=== PATIENT | male | born 1935 | race Caucasian/White ===

== ENCOUNTER → 2017-03-22 | Outpatient (CLI) | payer MEDICARE, OTHER ==
[2017-03-22 08:31] LABS: HEMATOCRIT 43.2 % (37.9-51.0); HGB HCT DIFFERENCE -1.2; MEAN CORPUSCULAR HEMOGLOBIN 30.2 pg (27.0-33.4); MEAN CORPUSCULAR HGB CONC 32.3 g/dL (32.0-36.0); MEAN CORPUSCULAR VOLUME 94 fl (80-97); RED BLOOD COUNT 4.62 10^6/uL (4.35-5.55); RED CELL DISTRIBUTION WIDTH 14.9 % (11.5-14.0); WHITE BLOOD COUNT 8.1 10^3/uL (4.0-10.5)
[2017-03-22 08:41] LABS: APPEARANCE,URINE CLEAR; BILIRUBIN,URINE NEGATIVE (NEGATIVE); GLUCOSE, URINE NEGATIVE (NEGATIVE); KETONES,URINE NEGATIVE (NEGATIVE); LEUKOCYTE ESTERASE,URINE NEGATIVE (NEGATIVE); NITRITE,URINE NEGATIVE (NEGATIVE); PROTEIN,URINE NEGATIVE (NEGATIVE); URINE SPECIFIC GRAVITY 1.019; UROBILINOGEN,URINE NEGATIVE mg/dL (<2.0)
[2017-03-22 08:59] LABS: ANION GAP 11 (5-19); BLOOD UREA NITROGEN 24 mg/dL (7-20); CALCIUM 9.1 mg/dL (8.4-10.2); CARBON DIOXIDE 32 mmol/L (22-30); CHLORIDE 101 mmol/L (98-107); CREATININE RESULT 1.29 mg/dL (0.52-1.25); GLUCOSE 103 mg/dL (75-110); POTASSIUM 5.5 mmol/L (3.6-5.0)
[2017-03-22 09:15] LABS: URINE CREATININE 163.8 mg/dL (22-328); URINE PROTEIN 8.7 mg/dL (<12)
== END ==
LOC: OD 07:29
PROVIDERS: ATTEND Internal Medicine Nephrology
DX: I12.9 Hypertensive chronic kidney disease with stage 1 through stage 4 chronic kidney disease, or unspecified chronic kidney disease (principal); N18.4 Chronic kidney disease, stage 4 (severe); E11.9 Type 2 diabetes mellitus without complications; E87.5 Hyperkalemia; E66.9 Obesity, unspecified
CPT/HCPCS: 36415; 80048; 81001; 82570; 84156; 85027

== ENCOUNTER → 2017-03-24 | Outpatient (CLI) | payer MEDICARE, OTHER | LOC: OD 07:03 | PROVIDERS: ATTEND Physician Assistant Medical | DX: E87.5 Hyperkalemia (principal) | CPT/HCPCS: 36415; 84132 ==

== ENCOUNTER → 2017-04-29 | Outpatient (CLI) | payer MEDICARE, OTHER | LOC: OD 07:05 | PROVIDERS: ATTEND Internal Medicine Nephrology | DX: E87.5 Hyperkalemia (principal) | CPT/HCPCS: 36415; 84132 ==

== ENCOUNTER → 2017-09-20 | Outpatient (CLI) | payer MEDICARE, OTHER ==
[2017-09-20 08:29] LABS: HEMOGLOBIN 14.1 g/dL (13.5-17.0); HGB HCT DIFFERENCE -0.7; MEAN CORPUSCULAR HEMOGLOBIN 30.5 pg (27.0-33.4); MEAN CORPUSCULAR HGB CONC 32.8 g/dL (32.0-36.0); MEAN CORPUSCULAR VOLUME 93 fl (80-97); RED BLOOD COUNT 4.63 10^6/uL (4.35-5.55); RED CELL DISTRIBUTION WIDTH 15.8 % (11.5-14.0); WHITE BLOOD COUNT 7.4 10^3/uL (4.0-10.5)
[2017-09-20 08:44] LABS: APPEARANCE,URINE CLEAR; BILIRUBIN,URINE NEGATIVE (NEGATIVE); GLUCOSE, URINE NEGATIVE (NEGATIVE); KETONES,URINE NEGATIVE (NEGATIVE); LEUKOCYTE ESTERASE,URINE NEGATIVE (NEGATIVE); NITRITE,URINE NEGATIVE (NEGATIVE); PROTEIN,URINE NEGATIVE (NEGATIVE); URINE SPECIFIC GRAVITY 1.023; UROBILINOGEN,URINE NEGATIVE mg/dL (<2.0)
[2017-09-20 08:59] LABS: ANION GAP 10 (5-19); BLOOD UREA NITROGEN 27 mg/dL (7-20); CALCIUM 9.5 mg/dL (8.4-10.2); CARBON DIOXIDE 31 mmol/L (22-30); CHLORIDE 105 mmol/L (98-107); CREATININE RESULT 1.43 mg/dL (0.52-1.25); GLUCOSE 98 mg/dL (75-110); POTASSIUM 4.7 mmol/L (3.6-5.0); SODIUM 146.1 mmol/L (137-145)
== END ==
LOC: OD 07:49
PROVIDERS: ATTEND Internal Medicine Nephrology
DX: N18.3 Chronic kidney disease, stage 3 (moderate) (principal); E11.9 Type 2 diabetes mellitus without complications; E87.5 Hyperkalemia; I12.9 Hypertensive chronic kidney disease with stage 1 through stage 4 chronic kidney disease, or unspecified chronic kidney disease
CPT/HCPCS: 36415; 80048; 81001; 85027

== ENCOUNTER → 2018-03-28 | Outpatient (CLI) | payer MEDICARE, OTHER ==
[2018-03-28 07:50] LABS: HEMATOCRIT 44.5 % (37.9-51.0); HEMOGLOBIN 14.7 g/dL (13.5-17.0); MEAN CORPUSCULAR HEMOGLOBIN 30.6 pg (27.0-33.4); MEAN CORPUSCULAR HGB CONC 32.9 g/dL (32.0-36.0); MEAN CORPUSCULAR VOLUME 93 fl (80-97); PLATELET COUNT 188 10^3/uL (150-450); RED BLOOD COUNT 4.78 10^6/uL (4.35-5.55); RED CELL DISTRIBUTION WIDTH 14.8 % (11.5-14.0); WHITE BLOOD COUNT 5.7 10^3/uL (4.0-10.5)
[2018-03-28 08:03] LABS: APPEARANCE,URINE CLEAR; BILIRUBIN,URINE NEGATIVE (NEGATIVE); COLOR,URINE YELLOW; GLUCOSE, URINE NEGATIVE (NEGATIVE); KETONES,URINE NEGATIVE (NEGATIVE); LEUKOCYTE ESTERASE,URINE NEGATIVE (NEGATIVE); NITRITE,URINE NEGATIVE (NEGATIVE); PROTEIN,URINE 30 mg/dL (NEGATIVE); URINE SPECIFIC GRAVITY 1.023; UROBILINOGEN,URINE NEGATIVE mg/dL (<2.0)
[2018-03-28 08:06] LABS: ANION GAP 9 (5-19); BLOOD UREA NITROGEN 23 mg/dL (7-20); CALCIUM 8.9 mg/dL (8.4-10.2); CARBON DIOXIDE 29 mmol/L (22-30); CHLORIDE 107 mmol/L (98-107); GLUCOSE 98 mg/dL (75-110); SODIUM 144.6 mmol/L (137-145)
== END ==
LOC: OD 07:11
PROVIDERS: ATTEND Internal Medicine Nephrology
DX: I12.9 Hypertensive chronic kidney disease with stage 1 through stage 4 chronic kidney disease, or unspecified chronic kidney disease (principal); N18.3 Chronic kidney disease, stage 3 (moderate); E11.9 Type 2 diabetes mellitus without complications; D64.9 Anemia, unspecified
CPT/HCPCS: 36415; 80048; 81001; 85027

== ENCOUNTER → 2018-10-14 | Outpatient (CLI) | payer MEDICARE, OTHER ==
[2018-10-14 08:04] LABS: APPEARANCE,URINE SLIGHTLY-CLOUDY; BILIRUBIN,URINE NEGATIVE (NEGATIVE); COLOR,URINE YELLOW; GLUCOSE, URINE NEGATIVE (NEGATIVE); KETONES,URINE NEGATIVE (NEGATIVE); LEUKOCYTE ESTERASE,URINE NEGATIVE (NEGATIVE); NITRITE,URINE NEGATIVE (NEGATIVE); PROTEIN,URINE 30 mg/dL (NEGATIVE); UROBILINOGEN,URINE NEGATIVE mg/dL (<2.0)
[2018-10-14 08:05] LABS: HEMATOCRIT 46.7 % (37.9-51.0); HEMOGLOBIN 15.8 g/dL (13.5-17.0); MEAN CORPUSCULAR HEMOGLOBIN 31.6 pg (27.0-33.4); MEAN CORPUSCULAR HGB CONC 33.9 g/dL (32.0-36.0); MEAN CORPUSCULAR VOLUME 93 fl (80-97); PLATELET COUNT 219 10^3/uL (150-450); RED BLOOD COUNT 5.01 10^6/uL (4.35-5.55); WHITE BLOOD COUNT 6.9 10^3/uL (4.0-10.5)
[2018-10-14 08:31] LABS: ANION GAP 8 (5-19); BLOOD UREA NITROGEN 25 mg/dL (7-20); CALCIUM 9.2 mg/dL (8.4-10.2); CARBON DIOXIDE 29 mmol/L (22-30); CHLORIDE 103 mmol/L (98-107); GLUCOSE 106 mg/dL (75-110); SODIUM 140.1 mmol/L (137-145)
== END ==
LOC: OD 07:06
PROVIDERS: ATTEND Physician Assistant Medical
DX: I12.9 Hypertensive chronic kidney disease with stage 1 through stage 4 chronic kidney disease, or unspecified chronic kidney disease (principal); N18.3 Chronic kidney disease, stage 3 (moderate); E87.5 Hyperkalemia; R60.9 Edema, unspecified
CPT/HCPCS: 36415; 80048; 81001; 85027

== ENCOUNTER → 2019-04-12 | Outpatient (CLI) | payer MEDICARE, OTHER ==
[2019-04-12 08:13] LABS: HEMATOCRIT 48.1 % (37.9-51.0); HEMOGLOBIN 15.8 g/dL (13.5-17.0); MEAN CORPUSCULAR HEMOGLOBIN 31.3 pg (27.0-33.4); MEAN CORPUSCULAR HGB CONC 32.9 g/dL (32.0-36.0); MEAN CORPUSCULAR VOLUME 95 fl (80-97); PLATELET COUNT 217 10^3/uL (150-450); RED BLOOD COUNT 5.06 10^6/uL (4.35-5.55); RED CELL DISTRIBUTION WIDTH 15.1 % (11.5-14.0); WHITE BLOOD COUNT 6.6 10^3/uL (4.0-10.5)
[2019-04-12 08:28] LABS: APPEARANCE,URINE CLEAR; BILIRUBIN,URINE NEGATIVE (NEGATIVE); COLOR,URINE YELLOW; GLUCOSE, URINE NEGATIVE (NEGATIVE); KETONES,URINE NEGATIVE (NEGATIVE); LEUKOCYTE ESTERASE,URINE NEGATIVE (NEGATIVE); NITRITE,URINE NEGATIVE (NEGATIVE); PROTEIN,URINE 100 mg/dL (NEGATIVE); URINE SPECIFIC GRAVITY 1.018; UROBILINOGEN,URINE NEGATIVE mg/dL (<2.0)
[2019-04-12 08:34] LABS: BLOOD UREA NITROGEN 23 mg/dL (7-20); CALCIUM 9.2 mg/dL (8.4-10.2); CARBON DIOXIDE 36 mmol/L (22-30); CHLORIDE 99 mmol/L (98-107); GLUCOSE 100 mg/dL (75-110); POTASSIUM 5.7 mmol/L (3.6-5.0)
[2019-04-12 08:40] LABS: ANION GAP 5 (5-19); SODIUM 139.6 mmol/L (137-145)
== END ==
LOC: OD 07:18
PROVIDERS: ATTEND Physician Assistant Medical
DX: E11.22 Type 2 diabetes mellitus with diabetic chronic kidney disease (principal); N18.3 Chronic kidney disease, stage 3 (moderate); E87.5 Hyperkalemia
CPT/HCPCS: 36415; 80048; 81001; 85027

== ENCOUNTER → 2019-04-14 | Outpatient (CLI) | payer MEDICARE, OTHER | LOC: OD 07:11 | PROVIDERS: ATTEND Physician Assistant Medical | DX: E87.5 Hyperkalemia (principal) | CPT/HCPCS: 36415; 84132 ==

== ENCOUNTER 2019-11-28 08:08 | Day surgery (SDC) | payer MEDICARE, OTHER ==
[~2019-11-28 08:08] MED LIST: CHONDR SU A NA/HYALUR INTRAOC KIT (SURGICARE) ONE; EPINEPHRINE INJ/PF 1 MG/1 ML AMPULE ONE; KETOROLAC TROMETHAMINE 0.45% 4 DROP/0.4 ML DROPERETTE OD PRN; LIDOCAINE 1%/PHENYLEPHRINE 1.5% 1 ML VIAL ONE
[2019-11-28] MEDS ORDERED: MIDAZOLAM 2 MG/2 ML INJ ONE (08:23)
[2019-11-28] MEDS: TETRACAINE HCL 0.5% OPH SOLN 4 ML OD PRN ×3 (09:00→09:23)
[2019-11-28] MEDS: CYCLOPENTOLATE 0.2%/PHENYLEPHRINE 1% OPH SOLN 2 ML OD PRN ×3 (09:01→09:19)
[2019-11-28] MEDS: TROPICAMIDE 1% OPH SOLN 15 ML OD PRN ×3 (09:01→09:19)
[2019-11-28] MEDS: BESIFLOXACIN HCL 0.6% OPH SUSP 5 ML BOTTLE OD PRN ×4 (09:01→09:45)
[2019-11-28] MEDS: DORZOLAMIDE HCL 2%/TIMOLOL MALEAT 0.5% OPH SOLN 10 ML OD PRN ×2 (09:45)
--- NOTE | 2019-11-28 12:53 | Operative Report ---
Operative Report-[facility] Operative Report: DATE OF SURGERY: 11/28/2019 PREOPERATIVE DIAGNOSIS: Cataract, right eye POSTOPERATIVE DIAGNOSIS: Cataract, right eye OPERATION: Cataract extraction with insertion of an IOL of the right eye. Intraocular Lens Model: [24.0 sn60wf] Patient underwent surgery for difficulty seeing road signs SURGEON: Cameron Rosenberg MD ANESTHESIA: Topical PROCEDURE: After obtaining appropriate consent, the patient's right eye was prepped and draped in a sterile fashion as well as the surgeon in the sterile manner and cataract surgery was started. First a paracentesis blade was used to make a side-port incision. Viscoelastic was used to inflate the anterior chamber. Next a 2.4 mm incision was made with a 2.4 mm blade, clear corneal temporarily. A continuous capsulorrhexis was made using a cystotome and Utrata forceps. Following this hydrodissection was carried out to make the radha fully loose and mobile and it was rotated. Following this, a divide and conquer technique was used to phacoemulsify the radha. The remaining cortex was removed with an irrigation/aspiration. Provisc was instilled into the capsular bag to inflate the bag. The intraocular lens was placed. The remaining viscoelastic material was removed with irrigation/aspiration. Following this, the incision was found to be watertight. Besivance and Cosopt was instilled into the eye and a protective shield was placed over the eye. The patient was reurned to the postoperative recovery in a stable condition.
== END 2019-11-28 10:40 | disposition home or self-care (01) ==
LOC: SC 08:08
PROVIDERS: ATTEND Internal Medicine
DX: H25.13 Age-related nuclear cataract, bilateral (principal); H40.013 Open angle with borderline findings, low risk, bilateral; H04.123 Dry eye syndrome of bilateral lacrimal glands; H52.4 Presbyopia; E11.9 Type 2 diabetes mellitus without complications; E78.00 Pure hypercholesterolemia, unspecified
CPT/HCPCS: 66984; 00142; V2632; J2250; J3490 ×2; A9270; J0171; J2370; 142

== ENCOUNTER 2019-12-19 07:47 | Day surgery (SDC) | payer MEDICARE, OTHER ==
[~2019-12-19 07:47] MED LIST changes: -CHONDR SU A NA/HYALUR INTRAOC KIT (SURGICARE) ONE; +DORZOLAMIDE HCL 2%/TIMOLOL MALEAT 0.5% OPH SOLN 10 ML OS PRN; -KETOROLAC TROMETHAMINE 0.45% 4 DROP/0.4 ML DROPERETTE OD PRN; +KETOROLAC TROMETHAMINE 0.45% 4 DROP/0.4 ML DROPERETTE OS PRN
[2019-12-19] MEDS ORDERED: CHONDR SU A NA/HYALUR INTRAOC KIT (SURGICARE) ONE (07:48)
[2019-12-19] MEDS ORDERED: MIDAZOLAM 2 MG/2 ML INJ ONE (08:01)
[2019-12-19] MEDS ORDERED: ONDANSETRON HCL INJ/PF 4 MG/2 ML SDV ONE (08:01)
[2019-12-19] MEDS ORDERED: FENTANYL CITRATE INJ/PF 100 MCG/2 ML AMPUL ONE (08:02)
[2019-12-19] MEDS: CYCLOPENTOLATE 0.2%/PHENYLEPHRINE 1% OPH SOLN 2 ML OS PRN ×3 (08:31→08:51)
[2019-12-19] MEDS: BESIFLOXACIN HCL 0.6% OPH SUSP 5 ML BOTTLE OS PRN ×3 (08:31→09:24)
[2019-12-19] MEDS: TROPICAMIDE 1% OPH SOLN 15 ML OS PRN ×3 (08:31→08:51)
[2019-12-19] MEDS: TETRACAINE HCL 0.5% OPH SOLN 4 ML OS PRN ×3 (08:32→09:03)
--- NOTE | 2019-12-19 13:54 | Operative Report ---
Operative Report-[facility] Operative Report: DATE OF SURGERY: 12/19/2019 PREOPERATIVE DIAGNOSIS: Cataracts, left eye POSTOPERATIVE DIAGNOSIS: Cataract, left eye OPERATION: Cataract extraction with insertion of an IOL of the left eye. Intraocular Lens Model: [22.0 sn60wf] Patient underwent surgery for difficulty seeing small print SURGEON: Cameron Rosenberg MD ANESTHESIA: Topical PROCEDURE: After obtaining appropriate consent, the patient's left eye was prepped and draped in a sterile fashion as well as the surgeon in the sterile manner and cataract surgery was started. First a paracentesis blade was used to make a side-port incision. Viscoelastic was used to inflate the anterior chamber. Next a 2.4 mm incision was made with a 2.4 mm blade, clear corneal temporarily. A continuous capsulorrhexis was made using a cystotome and Utrata forceps. Following this hydrodissection was carried out to make the lens fully loose and mobile and it was rotated 90 degrees. Following this, a divide and conquer technique was used to phacoemulsify the lens. The remaining cortex was removed with an irrigation/aspiration. Provisc was instilled into the capsular bag to inflate the bag.The intraocular lens was placed. The remaining viscoelastic material was removed with irrigation/aspiration. Following this, the incision was found to be watertight. Besivance and Cosopt was instilled into the eye and a protective shield was placed over the eye. The patient was returned to the postoperative recovery in a stable condition.
== END 2019-12-19 10:00 | disposition home or self-care (01) ==
LOC: SC 07:47
PROVIDERS: ATTEND Internal Medicine
DX: H25.12 Age-related nuclear cataract, left eye (principal); Z96.1 Presence of intraocular lens
CPT/HCPCS: 66984; 00142; V2632; J2250; J3490 ×2; A9270; J0171; J2405; 142; J3010

== ENCOUNTER 2020-10-08 11:55 | Inpatient (IN) | payer MEDICARE, OTHER ==
[2020-10-08 12:30] LABS: ABSOLUTE LYMPHOCYTES (AUTO) 0.5 10^3/uL (0.5-4.7); ABSOLUTE MONOCYTES (AUTO) 0.4 10^3/uL (0.1-1.4); ABSOLUTE NEUT (AUTO) 2.6 10^3/uL (1.7-8.2); BASOPHILS % (AUTO) 0.2 % (0-2); HEMATOCRIT 43.6 % (37.9-51.0); HEMOGLOBIN 14.8 g/dL (13.5-17.0); LYMPHOCYTES % (AUTO) 13.4 % (13-45); MEAN CORPUSCULAR HEMOGLOBIN 31.4 pg (27.0-33.4); MEAN CORPUSCULAR VOLUME 93 fl (80-97); MONOCYTES % (AUTO) 12.4 % (3-13); PLATELET COUNT 121 10^3/uL (150-450); RED BLOOD COUNT 4.71 10^6/uL (4.35-5.55); RED CELL DISTRIBUTION WIDTH 14.9 % (11.5-14.0); TOTAL CELLS COUNTED % (AUTO) 100 %; WHITE BLOOD COUNT 3.5 10^3/uL (4.0-10.5)
--- NOTE | 2020-10-08 12:57 | RADIOLOGY REPORT (SQ) ---
EXAM DESCRIPTION: CHEST SINGLE VIEW IMAGES COMPLETED DATE/TIME: 10/08/2020 12:27 pm REASON FOR STUDY: sob COMPARISON: None. EXAM PARAMETERS: NUMBER OF VIEWS: One view. TECHNIQUE: Single frontal radiographic view of the chest acquired. RADIATION DOSE: NA LIMITATIONS: None. FINDINGS: LUNGS AND PLEURA: Bibasilar (left greater than right) airspace opacities. A small left-si ded pleural effusion may be present. No pneumothorax. MEDIASTINUM AND HILAR STRUCTURES: No masses. Contour normal. HEART AND VASCULAR STRUCTURES: Cardiomegaly without central vascular congestion. BONES: No acute findings. HARDWARE: None in the chest. OTHER: No other significant finding. IMPRESSION: In the appropriate clinical setting, findings are consistent with multi lobar pneumonia. TECHNICAL DOCUMENTATION: JOB ID: [id number] 2010 [employer]- All Rights Reserved Reading location - IP/workstation name: [email or web address]
[2020-10-08 13:02] LABS: ALBUMIN 3.4 g/dL (3.5-5.0); ALKALINE PHOSPHATASE 68 U/L (38-126); ANION GAP 5 (5-19); ASPARTATE AMINO TRANSFERASE 61 U/L (17-59); BILIRUBIN,DIRECT 0.4 mg/dL (0.0-0.4); BILIRUBIN,TOTAL 0.9 mg/dL (0.2-1.3); BLOOD UREA NITROGEN 29 mg/dL (7-20); CALCIUM 8.2 mg/dL (8.4-10.2); CARBON DIOXIDE 34 mmol/L (22-30); CHLORIDE 97 mmol/L (98-107); CREATINE KINASE 121 U/L (55-170); GLUCOSE 110 mg/dL (75-110); POTASSIUM 4.6 mmol/L (3.6-5.0); TOTAL PROTEIN 6.4 g/dL (6.3-8.2)
[2020-10-08 13:12] LABS: CREATINE KINASE MB 0.99 ng/mL (<4.55)
[2020-10-08 13:21] LABS: TROPONIN I 0.064 ng/mL
[2020-10-08] MEDS ORDERED: DEXAMETHASONE SOD PHOS INJ 10 MG/1 ML VIAL IV ONE (13:38)
--- NOTE | 2020-10-08 13:43 | ER Document Report ---
ED General - General Chief Complaint: Shortness Of Breath Stated Complaint: POSSIBLE RESPIRATORY DISTRESS Time Seen by Provider: 10/08/20 13:13 Primary Care Provider: JANELL BRITT NP [Primary Care Provider] - Follow up as needed TRAVEL OUTSIDE OF THE [place] IN LAST 30 DAYS: No - HPI Notes: Patient is an 85-year-old male who presents to the emergency department for evaluation, primarily of lethargy. He is an extremely poor historian. He states that he has been feeling very tired for the last "at least 10 days." No fevers or chills to his knowledge. He denies any anosmia. He states he has had a minimal cough. He denies any nausea, vomiting, diarrhea. He denies any pain. Initially he tells me he takes no medications, but then I asked him about specific medications, he states he does take those. He was found by EMS to be hypoxic, with room air sat of 79%. He has no pre-existing history of lung disease per the patient. He was placed on oxygen per nasal cannula and brought to the emergency department for further evaluation. - Related Data Allergies/Adverse Reactions: No Known Allergies Allergy (Verified 12/19/19 08:35) Home Medications: Vitamin D, Lasix, losartan, aspirin, potassium, rosuvastatin, sitagliptin Past Medical History - General Information source: Patient - Social History Smoking Status: Never Smoker Frequency of alcohol use: None Drug Abuse: None Family History: Reviewed & Not Pertinent Patient has homicidal ideation: No - Past Medical History Cardiac Medical History: Reports: Hx Congestive Heart Failure, Hx Hyperchole sterolemia, Hx Hypertension Denies: Hx Heart Attack Pulmonary Medical History: Reports: Hx Sleep Apnea Denies: Hx Asthma Neurological Medical History: Denies: Hx Cerebrovascular Accident, Hx Seizures Renal/ Medical History: Reports: Hx Renal Insufficiency GI Medical History: Denies: Hx Hepatitis, Hx Hiatal Hernia, Hx Ulcer Infectious Medical History: Denies: Hx Hepatitis Past Surgical History: Denies: Hx Open Heart Surgery, Hx Pacemaker Review of Systems - Review of Systems Constitutional: See HPI EENT: No symptoms reported Cardiovascular: No symptoms reported Respiratory: See HPI Gastrointestinal: No symptoms reported Genitourinary: No symptoms reported Musculoskeletal: No symptoms reported Skin: No symptoms reported Neurological/Psychological: No symptoms reported Physical Exam - Vital signs Vitals: Temp 99.3 F 10/08/20 11:55 - Notes Notes: This is an 85-year-old gentleman who appears his stated age, in a mild amount of distress. Is mildly tachypneic, conversationally dyspneic. Vital signs reviewed, please refer to chart. Head is normocephalic, atraumatic. Pupils equal round, reactive to light. Neck is supple without meningismus. Heart is regular rate and rhythm. Lungs reveal diminished expiratory sounds with occasional crackles. Abdomen is soft, nontender, normoactive bowel sounds throughout. Extremities without cyanosis, clubbing. 3+ bilateral lower extremity pitting edema noted. Posterior calves are nontender. Peripheral pulses are equal. Skin is warm and dry. Patient is awake, alert, oriented to place and person, disoriented to time. He tells me repeatedly is 2028. He has no gross facial asymmetry, moves all 4 extremities spontaneously. He has difficulty following further instructions in regards to a neurological exam. Course - Re-evaluation Re-evalutation: 10/08/20 13:42 Patient presents to the emergency department for evaluation. He has limited history here in the computer system. He is a poor historian. I was able to gain some information from paperwork from his nurse practitioner. The patient was hypoxic on arrival. He was found to be Covid positive by EMS. His x-ray is consistent with multifocal pneumonia secondary to Covid. He is given dexamethasone. Awaiting remainder of lab work. Will contact medicine for admis girish. 10/08/20 14:41 Labwork showed a mildly elevated D-dimer, still waiting for ferritin. I spoke with Dr. Elmore, she accepted the patient for further care. - Vital Signs Vital signs: Temp Pulse Resp BP Pulse Ox 99.3 F 22 H 144/83 H 94 10/08/20 12:06 10/08/20 13:01 10/08/20 13:01 10/08/20 13:01 - Laboratory Results Result Diagrams: 10/08/20 11:36 10/08/20 11:36 Laboratory Results Interpreted: 10/08/20 10/08/20 10/08/20 11:36 11:36 11:36 WBC 3.5 L RDW 14.9 H Plt Count 121 L D-Dimer Sodium 136.4 L Chloride 97 L Carbon Dioxide 34 H BUN 29 H Creatinine 1.46 H Est GFR ( Amer) 56 L Est GFR (MDRD) Non-Af 46 L Calcium 8.2 L AST 61 H NT-Pro-B Natriuret Pep 4630 H Albumin 3.4 L 10/08/20 11:36 WBC RDW Plt Count D-Dimer 1.30 H Sodium Chloride Carbon Dioxide BUN Creatinine Est GFR ( Amer) Est GFR (MDRD) Non-Af Calcium AST NT-Pro-B Natriuret Pep Albumin Critical Laboratory Results Reviewed: No Critical Results - Radiology Results Radiology Results Interpreted: 10/08/20 13:44 Chest X-Ray 10/08/20 12:16 IMPRESSION: In the appropriate clinical setting, findings are consistent with multi lobar pneumonia. Critical Radiology Results Reviewed: No Critical Results - EKG Interpretation by Me Additional EKG results interpreted by me: 10/08/20 13:44 Sinus mechanism with a rate of 71 bpm. Normal axis. First-degree AV block. IVCD. T wave inversions anteriorly and inferiorly, concerning for possible ischemia. No old studies available for comparison. Discharge - Discharge Clinical Impression: Pneumonia due to COVID-19 virus, Hypoxia, Thrombocytopenia, Abnormal EKG Condition: Stable Disposition: ADMITTED INPATIENT Admitting Provider: Ramírez (Hospitalist) Unit Admitted: [facility] Referrals: JANELL BRITT NP [Primary Care Provider] - Follow up as needed
[2020-10-08 15:20] LABS: APPEARANCE,URINE CLEAR; BILIRUBIN,URINE NEGATIVE (NEGATIVE); COLOR,URINE YELLOW; GLUCOSE, URINE NEGATIVE (NEGATIVE); KETONES,URINE NEGATIVE (NEGATIVE); LEUKOCYTE ESTERASE,URINE NEGATIVE (NEGATIVE); NITRITE,URINE NEGATIVE (NEGATIVE); PROTEIN,URINE >=500 mg/dL (NEGATIVE); URINE SPECIFIC GRAVITY 1.025
--- NOTE | 2020-10-08 16:13 | EKG REPORT ---
SEVERITY:- ABNORMAL ECG - SINUS RHYTHM ATRIAL PREMATURE COMPLEX ABNORMAL T, CONSIDER ISCHEMIA, ANTERIOR LEADS : Confirmed by: Alonzo Mcdonald MD 08-Oct-2020 16:12:38
[2020-10-08] MEDS ORDERED: ONDANSETRON HCL INJ/PF 4 MG/2 ML SDV IV PRN (17:45)
[2020-10-08] MEDS ORDERED: MAGNESIUM HYDROXIDE SUSP 30 ML UDCUP PO PRN (17:45)
[2020-10-08] MEDS ORDERED: MAG HYDROX/AL HYDROX/SIMETH SUSP 30 ML UDCUP PO PRN (17:45)
[2020-10-08] MEDS ORDERED: AZITHROMYCIN INJ 500 MG VIAL IV ONE (17:52)
[2020-10-08] MEDS ORDERED: NORMAL SALINE 1000 ML 1,000 ML IV PRN (18:03)
[2020-10-08 18:04] LABS: ARTERIAL BLOOD BASE EXCESS 1.7 mmol/L; ARTERIAL BLOOD H2CO3 1.64 mmol/L (1.05-1.35); ARTERIAL BLOOD HCO3 28.7 mmol/L (20-24); ARTERIAL BLOOD O2 SATURATION 98.4 % (94-98); ARTERIAL BLOOD PCO2 54.5 mmHg (35-45); ARTERIAL BLOOD PH 7.34 (7.35-7.45); ARTERIAL BLOOD PO2 132.6 mmHg (80-100); ARTERIAL BLOOD TOTAL CO2 30.4 mmol/L (23-27)
[2020-10-08 18:12] LABS: ARTERIAL BLOOD FIO2 10L
--- NOTE | 2020-10-08 18:13 | PDOC H&P ---
History of Present Illness Admission Date/PCP: 10/08/20 15:28 JANELL BRITT NP Patient complains of: lethargy History of Present Illness: ARIAS ETIENNE is a 85 year old male with PMH of HTN, HLD, DM2, CHF who presents with lethargy. He is an extremely poor historian. I was unable to reach family and am waiting to receive a call back from his spouse. History obtained from ED physicians and medical records. He had been feeling very tired for the last at least 10 days. No fevers or chills. Denies change in taste/smell. He has had a minimal cough. He denies any nausea, vomiting, diarrhea. He denies any pain. Upon arrival, EMS found him to be hypoxic to 79% on RA. He was placed on NC. In the ED, he has required progressively increasing doses of oxygen and is now on a NRB. Past Medical History Cardiac Medical History: Reports: Congestive Heart Failure, Hyperlipidema, Hypertension Denies: Myocardial Infarction Pulmonary Medical History: Reports: Sleep Apnea Denies: Asthma Neurological Medical History: Denies: Seizures Endocrine Medical History: Reports: Diabetes Mellitus Type 2 GI Medical History: Denies: Hepatitis, Hiatal Hernia Hematology: Denies: Anemia, Sickle Cell Disease Past Surgical History Past Surgical History: Denies: Pacemaker Social History Information Source: Patient Smoking Status: Never Smoker - Advance Directive Resuscitation Status: Full Code Family History Family History: Reviewed & Not Pertinent Parental Family History Reviewed: Yes Children Family History Reviewed: Yes Sibling(s) Family History Reviewed.: Yes Medication/Allergy Home Medications: Aspirin [Ecotrin 81 mg EC Tablet] 81 mg PO DAILY 10/08/20 Potassium Chloride [Klor-Con M20] 20 meq PO DAILY 10/08/20 Rosuvastatin Calcium [Crestor] 20 mg PO HSP PRN 10/08/20 Sitagliptin Phosphate [Januvia 50 mg Tablet] 50 mg PO DAILY 10/08/20 Allergies/Adverse Reactions: No Known Allergies Allergy (Verified 12/19/19 08:35) Review of Systems ROS unobtainable: Due to mental status Physical Exam Vital Signs: Temp Pulse Resp BP Pulse Ox 99.3 F 23 H 134/85 H 89 L 10/08/20 12:06 10/08/20 17:01 10/08/20 17:01 10/08/20 17:01 Intake & Output 10/07/20 10/08/20 10/09/20 06:59 06:59 06:59 Weight 118 kg General appearance: PRESENT: no acute distress Head exam: PRESENT: atraumatic Eye exam: ABSENT: scleral icterus Mouth exam: PRESENT: moist Throat exam: ABSENT: post pharyngeal erythema Neck exam: ABSENT: JVD Respiratory exam: PRESENT: clear to auscultation priti Cardiovascular exam: PRESENT: RRR GI/Abdominal exam: PRESENT: normal bowel sounds, soft. ABSENT: firm, guarding, rebound, rigid, tenderness Extremities exam: PRESENT: other - LLE 2+ Edema Neurological exam: PRESENT: altered, oriented to person, other - disoriented but does follow commands and attempts to answer questions. ABSENT: oriented to place, oriented to time, oriented to situation Psychiatric exam: PRESENT: flat affect Results Laboratory Results: 10/08/20 11:36 10/08/20 11:36 10/08/20 10/08/20 10/08/20 11:36 11:36 11:36 WBC 3.5 L RBC 4.71 Hgb 14.8 Hct 43.6 MCV 93 MCH 31.4 MCHC 34.0 RDW 14.9 H Plt Count 121 L Seg Neutrophils % 74.0 Sodium 136.4 L Potassium 4.6 Chloride 97 L Carbon Dioxide 34 H Anion Gap 5 BUN 29 H Creatinine 1.46 H Est GFR ( Amer) 56 L Glucose 110 Lactic Acid Calcium 8.2 L Ferritin 594.00 H Total Bilirubin 0.9 AST 61 H Alkaline Phosphatase 68 Total Protein 6.4 Albumin 3.4 L Urine Color Urine Appearance Urine pH Ur Specific [place] Urine Protein Urine Glucose (UA) Urine Ketones Urine Blood Urine Nitrite Ur Leukocyte Esterase Urine WBC (Auto) Urine RBC (Auto) 10/08/20 10/08/20 12:40 14:54 WBC RBC Hgb Hct MCV MCH MCHC RDW Plt Count Seg Neutrophils % Sodium Potassium Chloride Carbon Dioxide Anion Gap BUN Creatinine Est GFR ( Amer) Glucose Lactic Acid 1.1 Calcium Ferritin Total Bilirubin AST Alkaline Phosphatase Total Protein Albumin Urine Color YELLOW Urine Appearance CLEAR Urine pH 5.0 Ur Specific [place] 1.025 Urine Protein >=500 H Urine Glucose (UA) NEGATIVE Urine Ketones NEGATIVE Urine Blood MODERATE H Urine Nitrite NEGATIVE Ur Leukocyte Esterase NEGATIVE Urine WBC (Auto) 1 Urine RBC (Auto) 3 10/08/20 10/08/20 11:36 11:36 Creatine Kinase 121 CK-MB (CK-2) 0.99 Troponin I 0.064 NT-Pro-B Natriuret Pep 4630 H Impressions: Chest X-Ray 10/08/20 12:16 IMPRESSION: In the appropriate clinical setting, findings are consistent with multi lobar pneumonia. Assessment and Plan - Diagnosis (1) Acute respiratory failure with hypoxia Is this a current diagnosis for this admission?: Yes (2) NSTEMI (non-ST elevated myocardial infarction) Is this a current diagnosis for this admission?: Yes (3) Pneumonia due to COVID-19 virus Is this a current diagnosis for this admission?: Yes (4) Neutropenia Is this a current diagnosis for this admission?: Yes (5) Hyponatremia Is this a current diagnosis for this admission?: Yes (6) JEFFRY (acute kidney injury) Is this a current diagnosis for this admission?: Yes (7) Thrombocytopenia Is this a current diagnosis for this admission?: Yes - Plan Summary Summary: ARIAS ETIENNE is a 85 year old male with PMH of HTN, HLD, DM2, CHF who presents with lethargy. He is an extremely poor historian. I was unable to reach family and am waiting to receive a call back from his spouse. History obtained from ED physicians and medical records. He had been feeling very tired for the last at least 10 days. No fevers or chills. Denies change in taste/smell. He has had a minimal cough. He denies any nausea, vomiting, diarrhea. He denies any pain. Acute Hypoxemic Respiratory Failure: Upon arrival, EMS found him to be hypoxic to 79% on RA. He was placed on NC. In the ED, he has required progressively increasing doses of oxygen and is now on a NRB. CXR shows multilobar pneumonia, likely due to Covid-19, as he was reportedly positive en route (per EMS). Given lethargy and AMS, will perform ABG STAT, as he may also have some element of hypercapnia. - ABG - wean off O2 as tolerated - DuoNebs PRN - IS Covid-19 Multilobar Pneumonia - obtain Covid-19 test and BCx x2 - start antibiotics with azithromycin/ceftriaxone x5 days - start dexamethasone 6 mg IV daily x10 days - D-dimer elevated, start therapeutic Lovenox - trend ferritin, CRP, LDH and D-dimer JEFFRY: likely dehydration in the s/o acute illness. Start gentle IVF hydration (history of CHF). - start NS at 100 ml/hr - repeat BMP in AM LFT elevation: may be due to viral infection vs alcohol abuse. - repeat CMP in AM NSTEMI: he denies chest pain. EKG without acute ischemic changes. Likely type 2 , demand ischemia, in the s/o respiratory failure. - trend troponin - continue home ASA/statin therapy - telemetry - nitro PRN CP - repeat EKG PRN CP DM2 - SSI AC and HS LLE swelling - order LLE duplex US to r/o DVT - Lovenox ordered as per above Acute Metabolic Encephalopathy: likely delirium in the s/o acute illness. ABG ordered as per above. Will contact family NADINE to ascertain baseline mental stat us. Code Status: full code for now, will clarify goals of care when I speak with family - Time Time Spent with patient: 35 or more minutes Anticipated Discharge Disposition: Home with Home Health Anticipated Discharge Timeframe: within 72 hours
[2020-10-08] MEDS ORDERED: DEXTROSE 40% GEL 15 GM TUBE PO PRN ×2 (18:15)
[2020-10-08] MEDS ORDERED: GLUCAGON,HUMAN RECOMB 1 MG INJ IM PRN (18:15)
[2020-10-08] MEDS ORDERED: DEXTROSE 50%-WATER 25 GM/50 ML DISP.SYRIN IV PRN ×2 (18:15)
[2020-10-08 18:50] LABS: FIBRINOGEN 542 mg/dL (209-497); INTERNATIONAL RATION (INR) 0.97; PARTIAL THROMBOPLASTIN TIME 31.4 SEC (23.5-35.8); PROTHROMBIN TIME 13.1 SEC (11.4-15.4)
[2020-10-08 18:53] LABS: D-DIMER 1.36 ug/mL (0.00-0.50)
--- NOTE | 2020-10-08 21:07 | RADIOLOGY REPORT (SQ) ---
US LOWER EXTREMITY VEINS HISTORY: Leg pain and swelling. COMPARISON: None. TECHNIQUE: Grayscale, color Doppler, and spectral Doppler images of the left lower extremity were performed. FINDINGS: The common femoral, superficial femoral and popliteal veins are patent and compressible. Normal augmentation and color Doppler blood flow in the aforementioned veins. The visualized calf veins are also patent. Diffuse subcutaneous edema is present. IMPRESSION: No DVT in the left lower extremity.
[2020-10-08] MEDS: ENOXAPARIN SODIUM INJ 120 MG/0.8 ML DISP.SYRIN SUBCUT SCH (22:46)
[2020-10-08] MEDS: INSULIN LISPRO 100 UNIT/ML 3 ML VIAL SUBCUT SCH (22:47)
[2020-10-08] MEDS: CEFTRIAXONE 1 GM/D5W RTU 1 GM/50 ML RTUPB IV SCH (22:50)
[2020-10-08] MEDS: ATORVASTATIN CALCIUM 40 MG TABLET PO SCH (22:51)
[2020-10-09] MEDS: AZITHROMYCIN 500 MG in DEXTROSE 5%-WATER 250 ML IV SCH ×2 (01:08→17:24)
[2020-10-09] MEDS: ASCORBIC ACID 500 MG TABLET PO SCH ×3 (01:13→17:25)
[2020-10-09] MEDS: PANTOPRAZOLE SODIUM 40 MG TABLET.DR PO SCH (05:53)
[2020-10-09 06:30] LABS: ABSOLUTE LYMPHOCYTES (AUTO) 0.4 10^3/uL (0.5-4.7); ABSOLUTE MONOCYTES (AUTO) 0.3 10^3/uL (0.1-1.4); ABSOLUTE NEUT (AUTO) 1.6 10^3/uL (1.7-8.2); BASOPHILS % (AUTO) 0.3 % (0-2); HEMATOCRIT 43.5 % (37.9-51.0); HEMOGLOBIN 14.5 g/dL (13.5-17.0); LYMPHOCYTES % (AUTO) 15.7 % (13-45); MEAN CORPUSCULAR HEMOGLOBIN 31.1 pg (27.0-33.4); MEAN CORPUSCULAR HGB CONC 33.3 g/dL (32.0-36.0); MEAN CORPUSCULAR VOLUME 94 fl (80-97); MONOCYTES % (AUTO) 13.3 % (3-13); PLATELET COUNT 105 10^3/uL (150-450); RED BLOOD COUNT 4.65 10^6/uL (4.35-5.55); RED CELL DISTRIBUTION WIDTH 14.6 % (11.5-14.0); SEGMENTED NEUTROPHILS % (AUTO) 70.7 % (42-78); TOTAL CELLS COUNTED % (AUTO) 100 %
[2020-10-09 06:45] LABS: WHITE BLOOD COUNT 2.3 10^3/uL (4.0-10.5)
[2020-10-09 06:52] LABS: ALBUMIN 3.1 g/dL (3.5-5.0); ALKALINE PHOSPHATASE 60 U/L (38-126); ANION GAP 5 (5-19); ASPARTATE AMINO TRANSFERASE 56 U/L (17-59); BILIRUBIN,DIRECT 0.3 mg/dL (0.0-0.4); BILIRUBIN,TOTAL 0.6 mg/dL (0.2-1.3); BLOOD UREA NITROGEN 30 mg/dL (7-20); C-REACTIVE PROTEIN 64.9 mg/L (<10.0); CALCIUM 7.8 mg/dL (8.4-10.2); CARBON DIOXIDE 32 mmol/L (22-30); CHLORIDE 101 mmol/L (98-107); GLUCOSE 136 mg/dL (75-110); TOTAL PROTEIN 6.1 g/dL (6.3-8.2)
[2020-10-09] MEDS: INSULIN LISPRO 100 UNIT/ML 3 ML VIAL SUBCUT SCH ×4 (09:53→22:02)
[2020-10-09] MEDS: ASPIRIN 81 MG TABLET, ENT COATED PO SCH (09:59)
[2020-10-09] MEDS: DEXAMETHASONE SOD PHOS INJ 10 MG/1 ML VIAL IV SCH (09:59)
[2020-10-09] MEDS: AZITHROMYCIN 250 MG TABLET PO SCH (09:59)
[2020-10-09] MEDS: CHOLECALCIFEROL (D3) 1,000 UNIT (25 MCG) TABLET PO SCH (09:59)
[2020-10-09] MEDS: ZINC SULFATE 220 MG CAPSULE PO SCH (09:59)
[2020-10-09] MEDS: ENOXAPARIN SODIUM INJ 120 MG/0.8 ML DISP.SYRIN SUBCUT SCH ×2 (10:01→22:02)
[2020-10-09 10:18] LABS: ARTERIAL BLOOD BASE EXCESS 3.5 mmol/L; ARTERIAL BLOOD H2CO3 1.72 mmol/L (1.05-1.35); ARTERIAL BLOOD HCO3 30.7 mmol/L (20-24); ARTERIAL BLOOD PCO2 57.1 mmHg (35-45); ARTERIAL BLOOD PH 7.35 (7.35-7.45); ARTERIAL BLOOD PO2 166.3 mmHg (80-100); ARTERIAL BLOOD TOTAL CO2 32.5 mmol/L (23-27)
[2020-10-09 10:21] LABS: ARTERIAL BLOOD FIO2 100%
--- NOTE | 2020-10-09 19:25 | PDOC PROGRESS REPORT ---
Subjective Date:: 10/09/20 Subjective:: NAEO. He is more awake, talkative, eating/drinking well. Reason For Visit: COVID-19, PNEUMONIA Physical Exam Vital Signs: Temp Pulse Resp BP Pulse Ox 97.7 F 48 L 29 H 124/68 93 10/09/20 16:10 10/09/20 16:10 10/09/20 17:05 10/09/20 16:10 10/09/20 17:05 Intake & Output 10/08/20 10/09/20 10/10/20 06:59 06:59 06:59 Intake Total 250 730 Output Total 250 Balance 0 730 Weight 119.9 kg General appearance: PRESENT: no acute distress, cooperative Eye exam: ABSENT: scleral icterus Mouth exam: PRESENT: moist Throat exam: ABSENT: post pharyngeal erythema Neck exam: ABSENT: JVD Respiratory exam: PRESENT: rhonchi. ABSENT: wheezes Cardiovascular exam: PRESENT: RRR GI/Abdominal exam: PRESENT: normal bowel sounds, soft. ABSENT: tenderness Extremities exam: PRESENT: +1 edema Neurological exam: PRESENT: alert, awake Psychiatric exam: PRESENT: appropriate affect Skin exam: ABSENT: jaundice Results Laboratory Results: 10/09/20 06:12 10/09/20 06:12 10/09/20 10/09/20 10/09/20 06:12 06:12 09:50 WBC 2.3 L D RBC 4.65 Hgb 14.5 Hct 43.5 MCV 94 MCH 31.1 MCHC 33.3 RDW 14.6 H Plt Count 105 L Seg Neutrophils % 70.7 Carbonic Acid 1.72 H HCO3/H2CO3 Ratio 17:1 ABG pH 7.35 ABG pCO2 57.1 H ABG pO2 166.3 H ABG HCO3 30.7 H ABG O2 Saturation 99.0 H ABG Base Excess 3.5 FiO2 100% Sodium 137.8 Potassium 5.0 Chloride 101 Carbon Dioxide 32 H Anion Gap 5 BUN 30 H Creatinine 1.08 Est GFR ( Amer) > 60 Glucose 136 H Calcium 7.8 L Ferritin 623.00 H Total Bilirubin 0.6 AST 56 Alkaline Phosphatase 60 C-Reactive Protein 64.9 H Total Protein 6.1 L Albumin 3.1 L 10/08/20 10/08/20 10/08/20 11:36 11:36 18:10 Creatine Kinase 121 CK-MB (CK-2) 0.99 Troponin I 0.064 0.055 NT-Pro-B Natriuret Pep 4630 H Impressions: Venous Doppler Study 10/08/20 00:00 IMPRESSION: No DVT in the left lower extremity. Chest X-Ray 10/08/20 12:16 IMPRESSION: In the appropriate clinical setting, findings are consistent with multi lobar pneumonia. Assessment and Plan - Diagnosis (1) Acute respiratory failure with hypoxia Is this a current diagnosis for this admission?: Yes (2) NSTEMI (non-ST elevated myocardial infarction) Is this a current diagnosis for this admission?: Yes (3) Pneumonia due to COVID-19 virus Is this a current diagnosis for this admission?: Yes (4) Neutropenia Is this a current diagnosis for this admission?: Yes (5) Hyponatremia Is this a current diagnosis for this admission?: Yes (6) JEFFRY (acute kidney injury) Is this a current diagnosis for this admission?: Yes (7) Thrombocytopenia Is this a current diagnosis for this admission?: Yes - Plan Summary Summary: ARIAS ETIENNE is a 85 year old male with PMH of HTN, HLD, DM2, CHF who presents with lethargy. He is an extremely poor historian. I was unable to reach family. History obtained from ED physicians and medical records. He had been feeling very tired for the last at least 10 days. No fevers or chills. Denies change in taste/smell. He has had a minimal cough. He denies any nausea, vomiting, diarrhea. He denies any pain. Acute Hypoxemic and Hypercapnic Respiratory Failure: Upon arrival, EMS found him to be hypoxic to 79% on RA. CXR shows multilobar pneumonia. - place on BIPAP and repeat ABG in AM - wean down O2 as tolerated - DuoNebs PRN - IS Covid-19 Multilobar Pneumonia - Covid-19 test positive - BCx x2 with NGTD - antibiotics with azithromycin/ceftriaxone x5 days - dexamethasone 6 mg IV daily x10 days - D-dimer elevated, on therapeutic Lovenox - trend ferritin, CRP, LDH and D-dimer JEFFRY: likely dehydration in the s/o acute illness. Resolved with IVF hydration. - stop IVF now that he is eating/drinking well - repeat BMP in AM NSTEMI: he denies chest pain. EKG without acute ischemic changes. Likely type 2 , demand ischemia, in the s/o respiratory failure. - troponin peaked at 0.06, stop trending - continue home ASA/statin therapy - telemetry - nitro PRN CP - repeat EKG PRN CP DM2 - SSI AC and HS LLE swelling - LLE duplex US negative for DVT - Lovenox ordered as per above Acute Metabolic Encephalopathy: likely delirium in the s/o acute illness, although baseline mental status still needs to be clarified with family. Code Status: full code for now, will clarify goals of care when I speak with family tomorrow - Time Time Spent with patient: 35 or more minutes Anticipated Discharge Disposition: Home with Home Health Anticipated Discharge Timeframe: within 72 hours
[2020-10-09] MEDS: CEFTRIAXONE 1 GM/D5W RTU 1 GM/50 ML RTUPB IV SCH (22:02)
[2020-10-09] MEDS: ATORVASTATIN CALCIUM 40 MG TABLET PO SCH (22:02)
[2020-10-10 05:12] LABS: ABSOLUTE LYMPHOCYTES (AUTO) 0.4 10^3/uL (0.5-4.7); ABSOLUTE MONOCYTES (AUTO) 0.3 10^3/uL (0.1-1.4); ABSOLUTE NEUT (AUTO) 3.3 10^3/uL (1.7-8.2); BASOPHILS % (AUTO) 0.2 % (0-2); HEMOGLOBIN 15.2 g/dL (13.5-17.0); LYMPHOCYTES % (AUTO) 10.4 % (13-45); MEAN CORPUSCULAR HEMOGLOBIN 31.2 pg (27.0-33.4); MEAN CORPUSCULAR HGB CONC 33.7 g/dL (32.0-36.0); MEAN CORPUSCULAR VOLUME 93 fl (80-97); PLATELET COUNT 122 10^3/uL (150-450); RED BLOOD COUNT 4.85 10^6/uL (4.35-5.55); RED CELL DISTRIBUTION WIDTH 14.6 % (11.5-14.0); SEGMENTED NEUTROPHILS % (AUTO) 81.4 % (42-78); TOTAL CELLS COUNTED % (AUTO) 100 %
[2020-10-10 05:25] LABS: ALBUMIN 3.3 g/dL (3.5-5.0); ALKALINE PHOSPHATASE 62 U/L (38-126); ANION GAP 6 (5-19); ASPARTATE AMINO TRANSFERASE 56 U/L (17-59); BILIRUBIN,DIRECT 0.4 mg/dL (0.0-0.4); BILIRUBIN,TOTAL 0.8 mg/dL (0.2-1.3); BLOOD UREA NITROGEN 32 mg/dL (7-20); C-REACTIVE PROTEIN 44.7 mg/L (<10.0); CALCIUM 8.3 mg/dL (8.4-10.2); CARBON DIOXIDE 31 mmol/L (22-30); CHLORIDE 101 mmol/L (98-107); GLUCOSE 90 mg/dL (75-110); TOTAL PROTEIN 6.4 g/dL (6.3-8.2)
[2020-10-10] MEDS: PANTOPRAZOLE SODIUM 40 MG TABLET.DR PO SCH (05:48)
[2020-10-10 07:03] LABS: ARTERIAL BLOOD BASE EXCESS 2.9 mmol/L; ARTERIAL BLOOD HCO3 27.8 mmol/L (20-24); ARTERIAL BLOOD O2 SATURATION 93.2 % (94-98); ARTERIAL BLOOD PCO2 43.3 mmHg (35-45); ARTERIAL BLOOD PH 7.43 (7.35-7.45); ARTERIAL BLOOD PO2 65.1 mmHg (80-100); ARTERIAL BLOOD TOTAL CO2 29.1 mmol/L (23-27)
[2020-10-10 07:08] LABS: ARTERIAL BLOOD FIO2 30%
[2020-10-10] MEDS: INSULIN LISPRO 100 UNIT/ML 3 ML VIAL SUBCUT SCH ×4 (08:50→22:22)
[2020-10-10] MEDS ORDERED: FUROSEMIDE INJ/PF 20 MG/2 ML SDV IV SCH (10:00)
[2020-10-10] MEDS: DEXAMETHASONE SOD PHOS INJ 10 MG/1 ML VIAL IV SCH (10:30)
[2020-10-10] MEDS: CHOLECALCIFEROL (D3) 1,000 UNIT (25 MCG) TABLET PO SCH (10:30)
[2020-10-10] MEDS: ASCORBIC ACID 500 MG TABLET PO SCH ×2 (10:31→17:50)
[2020-10-10] MEDS: ASPIRIN 81 MG TABLET, ENT COATED PO SCH (10:31)
[2020-10-10] MEDS: AZITHROMYCIN 250 MG TABLET PO SCH ×2 (10:31→17:50)
[2020-10-10] MEDS: ENOXAPARIN SODIUM INJ 120 MG/0.8 ML DISP.SYRIN SUBCUT SCH ×2 (10:32→22:23)
[2020-10-10] MEDS: ZINC SULFATE 220 MG CAPSULE PO SCH (10:32)
--- NOTE | 2020-10-10 18:27 | PDOC PROGRESS REPORT ---
Subjective Date:: 10/10/20 Subjective:: He tells me that his breathing is much improved today but he is annoyed to be urinating so much. It is difficult for him to use urinal and he has unfortunately been urinating on himself in bed. Reason For Visit: COVID-19, PNEUMONIA Physical Exam Vital Signs: Temp Pulse Resp BP Pulse Ox 98.3 F 65 18 145/89 H 94 10/10/20 16:04 10/10/20 16:04 10/10/20 16:04 10/10/20 16:04 10/10/20 16:04 Intake & Output 10/09/20 10/10/20 10/11/20 06:59 06:59 06:59 Intake Total 300 780 Output Total 250 Balance 50 780 Weight 119.9 kg 120.1 kg General appearance: PRESENT: no acute distress, cooperative Head exam: PRESENT: atraumatic Eye exam: ABSENT: scleral icterus Mouth exam: PRESENT: moist Throat exam: ABSENT: post pharyngeal erythema Neck exam: ABSENT: JVD Respiratory exam: PRESENT: crackles, rhonchi, tachypnea. ABSENT: wheezes Cardiovascular exam: PRESENT: RRR GI/Abdominal exam: PRESENT: normal bowel sounds, soft. ABSENT: tenderness Gentrourinary exam: PRESENT: scrotal swelling, other - skin of scrotum is red/breaking down Extremities exam: PRESENT: +1 edema Musculoskeletal exam: PRESENT: ambulatory Neurological exam: PRESENT: alert, awake, oriented to person, oriented to place, oriented to situation. ABSENT: oriented to time Psychiatric exam: PRESENT: appropriate affect Skin exam: ABSENT: jaundice Results Laboratory Results: 10/10/20 04:40 10/10/20 04:40 10/10/20 10/10/20 10/10/20 04:40 04:40 06:38 WBC 4.0 RBC 4.85 Hgb 15.2 Hct 45.0 MCV 93 MCH 31.2 MCHC 33.7 RDW 14.6 H Plt Count 122 L Seg Neutrophils % 81.4 H Carbonic Acid 1.30 HCO3/H2CO3 Ratio 21:1 ABG pH 7.43 ABG pCO2 43.3 ABG pO2 65.1 L ABG HCO3 27.8 H ABG O2 Saturation 93.2 L ABG Base Excess 2.9 FiO2 30% Sodium 138.3 Potassium 5.0 Chloride 101 Carbon Dioxide 31 H Anion Gap 6 BUN 32 H Creatinine 1.07 Est GFR ( Amer) > 60 Glucose 90 Calcium 8.3 L Ferritin 738.00 H Total Bilirubin 0.8 AST 56 Alkaline Phosphatase 62 C-Reactive Protein 44.7 H Total Protein 6.4 Albumin 3.3 L 10/08/20 10/08/20 10/08/20 11:36 11:36 18:10 Creatine Kinase 121 CK-MB (CK-2) 0.99 Troponin I 0.064 0.055 NT-Pro-B Natriuret Pep 4630 H Impressions: Venous Doppler Study 10/08/20 00:00 IMPRESSION: No DVT in the left lower extremity. Chest X-Ray 10/08/20 12:16 IMPRESSION: In the appropriate clinical setting, findings are consistent with multi lobar pneumonia. Assessment and Plan - Diagnosis (1) Acute respiratory failure with hypoxia Is this a current diagnosis for this admission?: Yes (2) NSTEMI (non-ST elevated myocardial infarction) Is this a current diagnosis for this admission?: Yes (3) Pneumonia due to COVID-19 virus Is this a current diagnosis for this admission?: Yes (4) Neutropenia Is this a current diagnosis for this admission?: Yes (5) Hyponatremia Is this a current diagnosis for this admission?: Yes (6) JEFFRY (acute kidney injury) Is this a current diagnosis for this admission?: Yes (7) Thrombocytopenia Is this a current diagnosis for this admission?: Yes - Plan Summary Summary: ARIAS ETIENNE is an 85 year old male with PMH of HTN, HLD, DM2, CHF who presents with lethargy. He is an extremely poor historian. I was unable to reach family. History obtained from ED physicians and medical records. He had been feeling very tired for the last at least 10 days. No fevers or chills. Denies change in taste/smell. He has had a minimal cough. He denies any nausea, vom iting, diarrhea. He denies any pain. Acute Hypoxemic and Hypercapnic Respiratory Failure: Upon arrival, EMS found him to be hypoxic to 79% on RA. CXR shows multilobar pneumonia. - ABG much improved today after being on BIPAP overnight - wean down O2 as tolerated - DuRut PRN - IS Covid-19 Multilobar Pneumonia - Covid-19 test positive - BCx x2 with NGTD - antibiotics with azithromycin/ceftriaxone x5 days - dexamethasone 6 mg IV daily x10 days - D-dimer elevated, on therapeutic Lovenox - trend ferritin, CRP, LDH and D-dimer JEFFRY: likely dehydration in the s/o acute illness. Resolved with IVF hydration. - stop IVF now that he is eating/drinking well - repeat BMP in AM NSTEMI: he denies chest pain. EKG without acute ischemic changes. Likely type 2 , demand ischemia, in the s/o respiratory failure. - troponin peaked at 0.06, stop trending - continue home ASA/statin therapy - telemetry - nitro PRN CP - repeat EKG PRN CP LLE swelling - LLE duplex US negative for DVT - Lovenox ordered as per above Skin Breakdown on Sacrum/Scrotum: he tells me that he walks at home and lives alone. I am concerned that he is unable to care for himself as he is barely able to urinate into a urinal or make it to the bathroom by himself here in the hospital. It's unclear to me whether this is just delirium from being sick and in the hospital, or if he has undiagnosed cognitive impairment. He says that his and that he has no children - unsure what support he has at home. - frequent turns while in bed - OOB to chair TID - elevate scrotum and keep as dry as possible with Nystatin powder - wound care consult Acute Metabolic Encephalopathy: likely delirium in the s/o acute illness, al though baseline mental status still needs to be clarified with family. Code Status: full code for now, will clarify goals of care when I speak with family, will attempt to reach them again tomorrow - Time Time Spent with patient: 35 or more minutes Anticipated Discharge Disposition: [facility] Anticipated Discharge Timeframe: within 72 hours
[2020-10-10] MEDS: TAMSULOSIN HCL 0.4 MG CAP.SR.24H PO SCH (19:57)
[2020-10-10 20:11] LABS: FIBRINOGEN 553 mg/dL (209-497); INTERNATIONAL RATION (INR) 0.95; PARTIAL THROMBOPLASTIN TIME 32.5 SEC (23.5-35.8); PROTHROMBIN TIME 12.9 SEC (11.4-15.4)
[2020-10-10 20:14] LABS: D-DIMER 2.37 ug/mL (0.00-0.50)
[2020-10-10] MEDS: ATORVASTATIN CALCIUM 40 MG TABLET PO SCH (22:23)
[2020-10-10] MEDS: CEFTRIAXONE 1 GM/D5W RTU 1 GM/50 ML RTUPB IV SCH (22:24)
[2020-10-10] MEDS: NYSTATIN/TRIAMCIN CREAM 15 GM TP SCH (22:24)
[2020-10-10] MEDS: ACETAMINOPHEN 325 MG TABLET PO PRN (22:44)
[2020-10-11] LABS: ABSOLUTE LYMPHOCYTES (AUTO) 0.3 10^3/uL (0.5-4.7); ABSOLUTE MONOCYTES (AUTO) 0.4 10^3/uL (0.1-1.4); ABSOLUTE NEUT (AUTO) 2.5 10^3/uL (1.7-8.2); BASOPHILS % (AUTO) 0.6 % (0-2); HEMATOCRIT 40.1 % (37.9-51.0); HEMOGLOBIN 13.4 g/dL (13.5-17.0); LYMPHOCYTES % (AUTO) 9.9 % (13-45); MEAN CORPUSCULAR HEMOGLOBIN 30.9 pg (27.0-33.4); MEAN CORPUSCULAR HGB CONC 33.4 g/dL (32.0-36.0); MEAN CORPUSCULAR VOLUME 93 fl (80-97); MONOCYTES % (AUTO) 13.5 % (3-13); PLATELET COUNT 124 10^3/uL (150-450); RED BLOOD COUNT 4.34 10^6/uL (4.35-5.55); RED CELL DISTRIBUTION WIDTH 14.4 % (11.5-14.0); TOTAL CELLS COUNTED % (AUTO) 100 %; WHITE BLOOD COUNT 3.2 10^3/uL (4.0-10.5)
[2020-10-11] MEDS ORDERED: MORPHINE SULFATE 10 MG/ML INJ IV ONE (01:00)
[2020-10-11 05:43] LABS: ABSOLUTE LYMPHOCYTES (AUTO) 0.4 10^3/uL (0.5-4.7); ABSOLUTE MONOCYTES (AUTO) 0.5 10^3/uL (0.1-1.4); ABSOLUTE NEUT (AUTO) 2.3 10^3/uL (1.7-8.2); BASOPHILS % (AUTO) 0.2 % (0-2); HEMATOCRIT 41.5 % (37.9-51.0); HEMOGLOBIN 14.1 g/dL (13.5-17.0); LYMPHOCYTES % (AUTO) 12.3 % (13-45); MEAN CORPUSCULAR HEMOGLOBIN 31.4 pg (27.0-33.4); MEAN CORPUSCULAR HGB CONC 34.1 g/dL (32.0-36.0); MEAN CORPUSCULAR VOLUME 92 fl (80-97); PLATELET COUNT 123 10^3/uL (150-450); RED CELL DISTRIBUTION WIDTH 14.3 % (11.5-14.0); SEGMENTED NEUTROPHILS % (AUTO) 71.5 % (42-78); TOTAL CELLS COUNTED % (AUTO) 100 %; WHITE BLOOD COUNT 3.2 10^3/uL (4.0-10.5)
[2020-10-11] MEDS: PANTOPRAZOLE SODIUM 40 MG TABLET.DR PO SCH (06:04)
[2020-10-11 06:09] LABS: ALKALINE PHOSPHATASE 60 U/L (38-126); ASPARTATE AMINO TRANSFERASE 51 U/L (17-59); BILIRUBIN,DIRECT 0.3 mg/dL (0.0-0.4); BILIRUBIN,TOTAL 0.7 mg/dL (0.2-1.3); BLOOD UREA NITROGEN 29 mg/dL (7-20); C-REACTIVE PROTEIN 75.3 mg/L (<10.0); CALCIUM 8.1 mg/dL (8.4-10.2); CARBON DIOXIDE 36 mmol/L (22-30); GLUCOSE 109 mg/dL (75-110); POTASSIUM 4.4 mmol/L (3.6-5.0)
[2020-10-11 06:13] LABS: ANION GAP 5 (5-19); CHLORIDE 95 mmol/L (98-107)
[2020-10-11] MEDS: INSULIN LISPRO 100 UNIT/ML 3 ML VIAL SUBCUT SCH ×4 (08:12→22:24)
[2020-10-11] MEDS: ACETAMINOPHEN 325 MG TABLET PO PRN (09:17)
[2020-10-11] MEDS: CHOLECALCIFEROL (D3) 1,000 UNIT (25 MCG) TABLET PO SCH (09:20)
[2020-10-11] MEDS: ASPIRIN 81 MG TABLET, ENT COATED PO SCH (09:20)
[2020-10-11] MEDS: DEXAMETHASONE SOD PHOS INJ 10 MG/1 ML VIAL IV SCH (09:20)
[2020-10-11] MEDS: ASCORBIC ACID 500 MG TABLET PO SCH ×2 (09:20→17:53)
[2020-10-11] MEDS: ZINC SULFATE 220 MG CAPSULE PO SCH (09:20)
[2020-10-11] MEDS: NYSTATIN/TRIAMCIN CREAM 15 GM TP SCH ×4 (09:21→22:58)
[2020-10-11] MEDS: ENOXAPARIN SODIUM INJ 120 MG/0.8 ML DISP.SYRIN SUBCUT SCH ×2 (16:48→22:57)
[2020-10-11] MEDS: AZITHROMYCIN 250 MG TABLET PO SCH (17:53)
[2020-10-11] MEDS: TAMSULOSIN HCL 0.4 MG CAP.SR.24H PO SCH (17:53)
--- NOTE | 2020-10-11 18:32 | PDOC PROGRESS REPORT ---
Subjective Date:: 10/11/20 Subjective:: NAEO Reason For Visit: COVID-19, PNEUMONIA Physical Exam Vital Signs: Temp Pulse Resp BP Pulse Ox 97.7 F 55 L 21 H 120/69 96 10/11/20 15:58 10/11/20 15:58 10/11/20 15:58 10/11/20 15:58 10/11/20 15:58 Intake & Output 10/10/20 10/11/20 10/12/20 06:59 06:59 06:59 Intake Total 780 410 Output Total 650 Balance 780 -240 Weight 120.1 kg 116.4 kg General appearance: PRESENT: no acute distress, cooperative Eye exam: ABSENT: scleral icterus Mouth exam: PRESENT: moist Throat exam: ABSENT: post pharyngeal erythema Neck exam: ABSENT: JVD Respiratory exam: PRESENT: rhonchi. ABSENT: crackles, wheezes Cardiovascular exam: PRESENT: RRR GI/Abdominal exam: PRESENT: normal bowel sounds, soft. ABSENT: tenderness Gentrourinary exam: PRESENT: indwelling catheter Extremities exam: PRESENT: +2 edema - L>R Musculoskeletal exam: PRESENT: ambulatory Neurological exam: PRESENT: alert, awake, oriented to person, oriented to place, oriented to situation. ABSENT: oriented to time Psychiatric exam: PRESENT: appropriate affect Skin exam: ABSENT: jaundice Results Laboratory Results: 10/11/20 05:03 10/11/20 05:03 10/10/20 10/11/20 10/11/20 23:50 05:03 05:03 WBC 3.2 L 3.2 L RBC 4.34 L 4.50 Hgb 13.4 L 14.1 Hct 40.1 41.5 MCV 93 92 MCH 30.9 31.4 MCHC 33.4 34.1 RDW 14.4 H 14.3 H Plt Count 124 L 123 L Seg Neutrophils % 76.0 71.5 Sodium 135.7 L Potassium 4.4 Chloride 95 L Carbon Dioxide 36 H Anion Gap 5 BUN 29 H Creatinine 1.06 Est GFR ( Amer) > 60 Glucose 109 Calcium 8.1 L Ferritin 918.00 H Total Bilirubin 0.7 AST 51 Alkaline Phosphatase 60 C-Reactive Protein 75.3 H Total Protein 6.0 L Albumin 3.0 L 10/08/20 10/08/20 10/08/20 11:36 11:36 18:10 Creatine Kinase 121 CK-MB (CK-2) 0.99 Troponin I 0.064 0.055 NT-Pro-B Natriuret Pep 4630 H Impressions: Venous Doppler Study 10/08/20 00:00 IMPRESSION: No DVT in the left lower extremity. Chest X-Ray 10/08/20 12:16 IMPRESSION: In the appropriate clinical setting, findings are consistent with multi lobar pneumonia. Assessment and Plan - Diagnosis (1) Acute respiratory failure with hypoxia Is this a current diagnosis for this admission?: Yes (2) NSTEMI (non-ST elevated myocardial infarction) Is this a current diagnosis for this admission?: Yes (3) Pneumonia due to COVID-19 virus Is this a current diagnosis for this admission?: Yes (4) Neutropenia Is this a current diagnosis for this admission?: Yes (5) Hyponatremia Is this a current diagnosis for this admission?: Yes (6) JEFFRY (acute kidney injury) Is this a current diagnosis for this admission?: Yes (7) Thrombocytopenia Is this a current diagnosis for this admission?: Yes - Plan Summary Summary: ARIAS ETIENNE is an 85 year old male with PMH of HTN, HLD, DM2, CHF who presents with lethargy. He is an extremely poor historian. I was unable to reach family. History obtained from ED physicians and medical records. He had been feeling very tired for the last at least 10 days. No fevers or chills. Denies c hange in taste/smell. He has had a minimal cough. He denies any nausea, vomiting, diarrhea. He denies any pain. Acute Hypoxemic and Hypercapnic Respiratory Failure: Upon arrival, EMS found him to be hypoxic to 79% on RA. CXR shows multilobar pneumonia. ABG much improved t ysabel after being on BIPAP. He is now on just 4 L O2 via NC. - wean down O2 as tolerated - DuoNebs PRN - IS Covid-19 Multilobar Pneumonia - Covid-19 test positive - BCx x2 with NGTD - antibiotics with azithromycin/ceftriaxone x5 days - dexamethasone 6 mg IV daily x10 days - D-dimer elevated, on therapeutic Lovenox - trend ferritin, CRP, LDH and D-dimer JEFFRY: likely dehydration in the s/o acute illness. Resolved with IVF hydration. NSTEMI: he denies chest pain. EKG without acute ischemic changes. Likely type 2 , demand ischemia, in the s/o respiratory failure. - troponin peaked at 0.06, stop trending - continue home ASA/statin therapy - telemetry - nitro PRN CP - repeat EKG PRN CP LLE swelling - LLE duplex US negative for DVT - Lovenox ordered as per above Skin Breakdown on Sacrum/Scrotum - frequent turns while in bed - OOB to chair TID - elevate scrotum and keep as dry as possible with Nystatin powder - wound care consult Acute Metabolic Encephalopathy: resolved. Was likely due to delirium in the s/o acute illness. He is much improved today. Code Status: DNR/DNI - Time Time Spent with patient: 35 or more minutes Anticipated Discharge Disposition: Home with Home Health Anticipated Discharge Timeframe: within 72 hours
[2020-10-11] MEDS: ATORVASTATIN CALCIUM 40 MG TABLET PO SCH (22:56)
[2020-10-11] MEDS: CEFTRIAXONE 1 GM/D5W RTU 1 GM/50 ML RTUPB IV SCH (22:57)
[2020-10-12] MEDS: PANTOPRAZOLE SODIUM 40 MG TABLET.DR PO SCH (06:07)
[2020-10-12 06:42] LABS: ABSOLUTE LYMPHOCYTES (AUTO) 0.4 10^3/uL (0.5-4.7); ABSOLUTE MONOCYTES (AUTO) 0.3 10^3/uL (0.1-1.4); ABSOLUTE NEUT (AUTO) 4.2 10^3/uL (1.7-8.2); BASOPHILS % (AUTO) 0.3 % (0-2); HEMATOCRIT 44.6 % (37.9-51.0); LYMPHOCYTES % (AUTO) 7.6 % (13-45); MEAN CORPUSCULAR HEMOGLOBIN 30.9 pg (27.0-33.4); MEAN CORPUSCULAR HGB CONC 33.5 g/dL (32.0-36.0); MEAN CORPUSCULAR VOLUME 92 fl (80-97); MONOCYTES % (AUTO) 7.1 % (3-13); PLATELET COUNT 141 10^3/uL (150-450); RED BLOOD COUNT 4.84 10^6/uL (4.35-5.55); RED CELL DISTRIBUTION WIDTH 14.4 % (11.5-14.0); TOTAL CELLS COUNTED % (AUTO) 100 %; WHITE BLOOD COUNT 4.9 10^3/uL (4.0-10.5)
[2020-10-12 07:08] LABS: ALBUMIN 3.3 g/dL (3.5-5.0); ALKALINE PHOSPHATASE 63 U/L (38-126); ANION GAP 6 (5-19); ASPARTATE AMINO TRANSFERASE 47 U/L (17-59); BILIRUBIN,DIRECT 0.3 mg/dL (0.0-0.4); BILIRUBIN,TOTAL 0.8 mg/dL (0.2-1.3); BLOOD UREA NITROGEN 27 mg/dL (7-20); C-REACTIVE PROTEIN 78.8 mg/L (<10.0); CALCIUM 8.5 mg/dL (8.4-10.2); CARBON DIOXIDE 37 mmol/L (22-30); CHLORIDE 95 mmol/L (98-107); GLUCOSE 94 mg/dL (75-110); POTASSIUM 4.7 mmol/L (3.6-5.0); TOTAL PROTEIN 6.4 g/dL (6.3-8.2)
[2020-10-12] MEDS: INSULIN LISPRO 100 UNIT/ML 3 ML VIAL SUBCUT SCH ×4 (08:43→21:43)
[2020-10-12] MEDS: ENOXAPARIN SODIUM INJ 120 MG/0.8 ML DISP.SYRIN SUBCUT SCH ×2 (10:14→21:45)
[2020-10-12] MEDS: ASPIRIN 81 MG TABLET, ENT COATED PO SCH (10:15)
[2020-10-12] MEDS: ZINC SULFATE 220 MG CAPSULE PO SCH (10:15)
[2020-10-12] MEDS: DEXAMETHASONE SOD PHOS INJ 10 MG/1 ML VIAL IV SCH (10:15)
[2020-10-12] MEDS: ASCORBIC ACID 500 MG TABLET PO SCH ×2 (10:15→17:44)
[2020-10-12] MEDS: NYSTATIN/TRIAMCIN CREAM 15 GM TP SCH ×4 (10:15→21:35)
[2020-10-12] MEDS: CHOLECALCIFEROL (D3) 1,000 UNIT (25 MCG) TABLET PO SCH (10:15)
--- NOTE | 2020-10-12 16:09 | PDOC PROGRESS REPORT ---
Subjective Date:: 10/12/20 Subjective:: He is more confused and erratic on today's examination. Oxygen needs are increasing. Repeat ABG pending. Reason For Visit: COVID-19, PNEUMONIA Physical Exam Vital Signs: Temp Pulse Resp BP Pulse Ox 98.2 F 81 22 H 127/66 H 90 L 10/12/20 12:48 10/12/20 14:00 10/12/20 12:48 10/12/20 12:48 10/12/20 12:48 Intake & Output 10/11/20 10/12/20 10/13/20 06:59 06:59 06:59 Intake Total 410 1390 50 Output Total 650 1175 Balance -240 215 50 Weight 116.4 kg 116.7 kg General appearance: PRESENT: no acute distress, cooperative Eye exam: ABSENT: scleral icterus Mouth exam: PRESENT: moist Throat exam: ABSENT: post pharyngeal erythema Neck exam: ABSENT: JVD Respiratory exam: PRESENT: rhonchi. ABSENT: crackles, wheezes Cardiovascular exam: PRESENT: RRR GI/Abdominal exam: PRESENT: normal bowel sounds, soft. ABSENT: tenderness Gentrourinary exam: PRESENT: indwelling catheter Extremities exam: PRESENT: +1 edema - right, +2 edema - left Musculoskeletal exam: PRESENT: ambulatory Neurological exam: PRESENT: alert, awake, oriented to person, oriented to place. ABSENT: oriented to time, oriented to situation Psychiatric exam: PRESENT: flat affect Skin exam: ABSENT: jaundice Results Laboratory Results: 10/12/20 06:01 10/12/20 06:01 10/12/20 10/12/20 06:01 06:01 WBC 4.9 RBC 4.84 Hgb 15.0 Hct 44.6 MCV 92 MCH 30.9 MCHC 33.5 RDW 14.4 H Plt Count 141 L Seg Neutrophils % 85.0 H Sodium 138.1 Potassium 4.7 Chloride 95 L Carbon Dioxide 37 H Anion Gap 6 BUN 27 H Creatinine 0.98 Est GFR ( Amer) > 60 Glucose 94 Calcium 8.5 Ferritin 1020.00 H Total Bilirubin 0.8 AST 47 Alkaline Phosphatase 63 C-Reactive Protein 78.8 H Total Protein 6.4 Albumin 3.3 L 10/08/20 10/08/20 10/08/20 11:36 11:36 18:10 Creatine Kinase 121 CK-MB (CK-2) 0.99 Troponin I 0.064 0.055 NT-Pro-B Natriuret Pep 4630 H Impressions: Venous Doppler Study 10/08/20 00:00 IMPRESSION: No DVT in the left lower extremity. Chest X-Ray 10/08/20 12:16 IMPRESSION: In the appropriate clinical setting, findings are consistent with multi lobar pneumonia. Assessment and Plan - Diagnosis (1) Acute respiratory failure with hypoxia Is this a current diagnosis for this admission?: Yes (2) NSTEMI (non-ST elevated myocardial infarction) Is this a current diagnosis for this admission?: Yes (3) Pneumonia due to COVID-19 virus Is this a current diagnosis for this admission?: Yes (4) Neutropenia Is this a current diagnosis for this admission?: Yes (5) Hyponatremia Is this a current diagnosis for this admission?: Yes (6) JEFFRY (acute kidney injury) Is this a current diagnosis for this admission?: Yes (7) Thrombocytopenia Is this a current diagnosis for this admission?: Yes - Plan Summary Summary: ARIAS ETIENNE is an 85 year old male with PMH of HTN, HLD, DM2, CHF who presented with lethargy and was found to have Covid-19 Pneumonia. Acute Hypoxemic and Hypercapnic Respiratory Failure: Upon arrival, EMS found him to be hypoxic to 79% on RA. CXR showed multilobar pneumonia. He has been requiring increasing supplemental oxygen therapy throughout the last 3 days. - repeat ABG - DuoNebs PRN - IS Covid-19 Multilobar Pneumonia: Covid-19 test positive, BCx x2 with NGTD - antibiotics with azithromycin/ceftriaxone x5 days - dexamethasone 6 mg IV daily x10 days - Ivermectin 18 mg PO on days 1 and 3 - D-dimer elevated, on therapeutic Lovenox - trend ferritin, CRP, LDH and D-dimer - continue Zinc, B-complex, Vit C, Vit D JEFFRY: likely dehydration in the s/o acute illness. Resolved with IVF hydration. NSTEMI type 2: he denies chest pain. Troponin peaked at 0.06. EKG without acute ischemic changes. Likely type 2 , demand ischemia, in the s/o respiratory failure. - continue home ASA/statin therapy - telemetry - nitro PRN CP - repeat EKG PRN CP LLE swelling - LLE duplex US negative for DVT - Lovenox ordered as per above Skin Breakdown on Sacrum/Scrotum - frequent turns while in bed - OOB to chair TID - elevate scrotum and keep as dry as possible with Nystatin powder - wound care consult Acute Metabolic Encephalopathy: likely due to delirium in the s/o acute illness. - delirium precautions - avoid opioids/BZD and other sedating medications Code Status: DNR/DNI Dispo: The only phone number we have on file is the patient's house number. His has and his only remaining family is his sister, who I have not been able to reach. He lives alone and was previously walking independently and driving, before this hospitalization. Given his age, multiple comorbidities and increasing oxygen needs, he is likely to have a prolonged hospital stay and may require SNF placement on discharge. - Time Time Spent with patient: 35 or more minutes Anticipated Discharge Disposition: Home with Home Health Anticipated Discharge Timeframe: within 72 hours
[2020-10-12 16:38] LABS: ARTERIAL BLOOD BASE EXCESS 6.3 mmol/L; ARTERIAL BLOOD FIO2 5L; ARTERIAL BLOOD H2CO3 1.41 mmol/L (1.05-1.35); ARTERIAL BLOOD HCO3 31.5 mmol/L (20-24); ARTERIAL BLOOD O2 SATURATION 89.1 % (94-98); ARTERIAL BLOOD PCO2 46.7 mmHg (35-45); ARTERIAL BLOOD PH 7.45 (7.35-7.45); ARTERIAL BLOOD PO2 53.9 mmHg (80-100); ARTERIAL BLOOD TOTAL CO2 32.9 mmol/L (23-27)
[2020-10-12] MEDS ORDERED: IVERMECTIN 3 MG TABLET PO ONE (17:00)
[2020-10-12 17:11] LABS: FIBRINOGEN 642 mg/dL (209-497); INTERNATIONAL RATION (INR) 0.95; PROTHROMBIN TIME 12.9 SEC (11.4-15.4)
[2020-10-12 17:12] LABS: PARTIAL THROMBOPLASTIN TIME 32.6 SEC (23.5-35.8)
[2020-10-12 17:14] LABS: D-DIMER 2.06 ug/mL (0.00-0.50)
[2020-10-12] MEDS: TAMSULOSIN HCL 0.4 MG CAP.SR.24H PO SCH (17:44)
[2020-10-12] MEDS: AZITHROMYCIN 250 MG TABLET PO SCH (17:44)
[2020-10-12] MEDS: ATORVASTATIN CALCIUM 40 MG TABLET PO SCH (21:44)
[2020-10-12] MEDS: CEFTRIAXONE 1 GM/D5W RTU 1 GM/50 ML RTUPB IV SCH (21:44)
[2020-10-13] MEDS: PANTOPRAZOLE SODIUM 40 MG TABLET.DR PO SCH (06:10)
[2020-10-13 06:16] LABS: ABSOLUTE LYMPHOCYTES (AUTO) 0.3 10^3/uL (0.5-4.7); ABSOLUTE MONOCYTES (AUTO) 0.4 10^3/uL (0.1-1.4); BASOPHILS % (AUTO) 0.3 % (0-2); HEMOGLOBIN 14.3 g/dL (13.5-17.0); LYMPHOCYTES % (AUTO) 6.6 % (13-45); MEAN CORPUSCULAR HEMOGLOBIN 30.5 pg (27.0-33.4); MEAN CORPUSCULAR HGB CONC 33.2 g/dL (32.0-36.0); MEAN CORPUSCULAR VOLUME 92 fl (80-97); MONOCYTES % (AUTO) 8.6 % (3-13); PLATELET COUNT 148 10^3/uL (150-450); RED BLOOD COUNT 4.68 10^6/uL (4.35-5.55); RED CELL DISTRIBUTION WIDTH 14.5 % (11.5-14.0); SEGMENTED NEUTROPHILS % (AUTO) 84.5 % (42-78); TOTAL CELLS COUNTED % (AUTO) 100 %; WHITE BLOOD COUNT 4.8 10^3/uL (4.0-10.5)
[2020-10-13 07:33] LABS: ALKALINE PHOSPHATASE 55 U/L (38-126); ANION GAP 6 (5-19); ASPARTATE AMINO TRANSFERASE 50 U/L (17-59); BILIRUBIN,DIRECT 0.4 mg/dL (0.0-0.4); BILIRUBIN,TOTAL 0.8 mg/dL (0.2-1.3); BLOOD UREA NITROGEN 26 mg/dL (7-20); CALCIUM 8.5 mg/dL (8.4-10.2); CARBON DIOXIDE 33 mmol/L (22-30); CHLORIDE 97 mmol/L (98-107); GLUCOSE 102 mg/dL (75-110); POTASSIUM 4.6 mmol/L (3.6-5.0); TOTAL PROTEIN 6.1 g/dL (6.3-8.2)
[2020-10-13] MEDS: DEXAMETHASONE SOD PHOS INJ 10 MG/1 ML VIAL IV SCH (10:03)
[2020-10-13] MEDS: ENOXAPARIN SODIUM INJ 120 MG/0.8 ML DISP.SYRIN SUBCUT SCH ×2 (10:03→23:23)
[2020-10-13] MEDS: CHOLECALCIFEROL (D3) 1,000 UNIT (25 MCG) TABLET PO SCH (10:04)
[2020-10-13] MEDS: INSULIN LISPRO 100 UNIT/ML 3 ML VIAL SUBCUT SCH ×3 (10:04→23:21)
[2020-10-13] MEDS: ASCORBIC ACID 500 MG TABLET PO SCH ×2 (10:04→18:00)
[2020-10-13] MEDS: ASPIRIN 81 MG TABLET, ENT COATED PO SCH (10:04)
[2020-10-13] MEDS: NYSTATIN/TRIAMCIN CREAM 15 GM TP SCH ×3 (10:04→23:26)
[2020-10-13] MEDS: ZINC SULFATE 220 MG CAPSULE PO SCH (10:05)
[2020-10-13 10:34] LABS: ARTERIAL BLOOD BASE EXCESS 8.5 mmol/L; ARTERIAL BLOOD H2CO3 1.82 mmol/L (1.05-1.35); ARTERIAL BLOOD HCO3 35.8 mmol/L (20-24); ARTERIAL BLOOD PCO2 60.5 mmHg (35-45); ARTERIAL BLOOD PH 7.39 (7.35-7.45); ARTERIAL BLOOD PO2 55.8 mmHg (80-100); ARTERIAL BLOOD TOTAL CO2 37.7 mmol/L (23-27)
[2020-10-13 10:36] LABS: ARTERIAL BLOOD FIO2 5.5L
[2020-10-13 17:21] LABS: ARTERIAL BLOOD BASE EXCESS 8.7 mmol/L; ARTERIAL BLOOD FIO2 30%; ARTERIAL BLOOD H2CO3 1.37 mmol/L (1.05-1.35); ARTERIAL BLOOD HCO3 33.4 mmol/L (20-24); ARTERIAL BLOOD O2 SATURATION 94.5 % (94-98); ARTERIAL BLOOD PCO2 45.5 mmHg (35-45); ARTERIAL BLOOD PH 7.48 (7.35-7.45); ARTERIAL BLOOD PO2 67.4 mmHg (80-100); ARTERIAL BLOOD TOTAL CO2 34.8 mmol/L (23-27)
[2020-10-13] MEDS: TAMSULOSIN HCL 0.4 MG CAP.SR.24H PO SCH (18:00)
[2020-10-13] MEDS: AZITHROMYCIN 250 MG TABLET PO SCH (18:00)
--- NOTE | 2020-10-13 18:11 | PDOC PROGRESS REPORT ---
Subjective Date:: 10/13/20 Subjective:: NAEO. He feels more SOB today and is working harder to breathe. Reason For Visit: COVID-19, PNEUMONIA Physical Exam Vital Signs: Temp Pulse Resp BP Pulse Ox 97.2 F 70 45 H 100/60 91 L 10/13/20 15:08 10/13/20 15:08 10/13/20 16:14 10/13/20 15:08 10/13/20 16:14 Intake & Output 10/12/20 10/13/20 10/14/20 06:59 06:59 06:59 Intake Total 1390 365 720 Output Total 1175 800 150 Balance 215 -435 570 Weight 116.7 kg 116.9 kg General appearance: PRESENT: mild distress, obese Eye exam: ABSENT: scleral icterus Mouth exam: PRESENT: moist Throat exam: ABSENT: post pharyngeal erythema Neck exam: ABSENT: JVD Respiratory exam: PRESENT: rhonchi, tachypnea, wheezes. ABSENT: crackles Cardiovascular exam: PRESENT: RRR GI/Abdominal exam: PRESENT: normal bowel sounds, soft. ABSENT: tenderness Extremities exam: PRESENT: pedal edema Musculoskeletal exam: PRESENT: ambulatory Neurological exam: PRESENT: alert, awake, oriented to person, oriented to situation. ABSENT: oriented to place, oriented to time Psychiatric exam: PRESENT: anxious Skin exam: ABSENT: jaundice Results Laboratory Results: 10/13/20 05:07 10/13/20 05:07 10/13/20 10/13/20 10/13/20 05:07 05:07 10:10 WBC 4.8 RBC 4.68 Hgb 14.3 Hct 43.0 MCV 92 MCH 30.5 MCHC 33.2 RDW 14.5 H Plt Count 148 L Seg Neutrophils % 84.5 H Carbonic Acid 1.82 H HCO3/H2CO3 Ratio 19:1 ABG pH 7.39 ABG pCO2 60.5 H ABG pO2 55.8 L ABG HCO3 35.8 H ABG O2 Saturation 88.0 L ABG Base Excess 8.5 FiO2 5.5L Sodium 136.1 L Potassium 4.6 Chloride 97 L Carbon Dioxide 33 H Anion Gap 6 BUN 26 H Creatinine 0.96 Est GFR ( Amer) > 60 Glucose 102 Calcium 8.5 Ferritin 1510.00 H Total Bilirubin 0.8 AST 50 Alkaline Phosphatase 55 C-Reactive Protein 168.0 H Total Protein 6.1 L Albumin 3.0 L 10/13/20 17:10 WBC RBC Hgb Hct MCV MCH MCHC RDW Plt Count Seg Neutrophils % Carbonic Acid 1.37 H HCO3/H2CO3 Ratio 24:1 ABG pH 7.48 H ABG pCO2 45.5 H ABG pO2 67.4 L ABG HCO3 33.4 H ABG O2 Saturation 94.5 ABG Base Excess 8.7 FiO2 30% Sodium Potassium Chloride Carbon Dioxide Anion Gap BUN Creatinine Est GFR ( Amer) Glucose Calcium Ferritin Total Bilirubin AST Alkaline Phosphatase C-Reactive Protein Total Protein Albumin 10/08/20 12:40 Blood Blood Culture - Final NO GROWTH IN 5 DAYS 10/08/20 11:36 Blood Blood Culture - Final NO GROWTH IN 5 DAYS 10/08/20 10/08/20 10/08/20 11:36 11:36 18:10 Creatine Kinase 121 CK-MB (CK-2) 0.99 Troponin I 0.064 0.055 NT-Pro-B Natriuret Pep 4630 H Impressions: Venous Doppler Study 10/08/20 00:00 IMPRESSION: No DVT in the left lower extremity. Chest X-Ray 10/08/20 12:16 IMPRESSION: In the appropriate clinical setting, findings are consistent with multi lobar pneumonia. Assessment and Plan - Diagnosis (1) Acute respiratory failure with hypoxia Is this a current diagnosis for this admission?: Yes (2) NSTEMI (non-ST elevated myocardial infarction) Is this a current diagnosis for this admission?: Yes (3) Pneumonia due to COVID-19 virus Is this a current diagnosis for this admission?: Yes (4) Neutropenia Is this a current diagnosis for this admission?: Yes (5) Hyponatremia Is this a current diagnosis for this admission?: Yes (6) JEFFRY (acute kidney injury) Is this a current diagnosis for this admission?: Yes (7) Thrombocytopenia Is this a current diagnosis for this admission?: Yes - Plan Summary Summary: ARIAS ETIENNE is an 85 year old male with PMH of HTN, HLD, DM2, CHF who presented with lethargy and was found to have Covid-19 Pneumonia. Acute Hypoxemic and Hypercapnic Respiratory Failure: Upon arrival, EMS found him to be hypoxic to 79% on RA. CXR showed multilobar pneumonia. He has been requiring increasing supplemental oxygen therapy throughout the last 3 days. He is now becoming altered, hypoxic and hypercapnic. Will place him back on BIPAP at 50% FiO2 and repeat ABG 1 hour later. - DuoNebs PRN Covid-19 Multilobar Pneumonia: Covid-19 test positive, BCx x2 with NGTD - antibiotics with azithromycin/ceftriaxone x5 days - dexamethasone 6 mg IV daily x10 days - Ivermectin 18 mg PO on days 1 and 3 - D-dimer elevated, on therapeutic Lovenox - trend ferritin, CRP, LDH and D-dimer - continue Zinc, B-complex, Vit C, Vit D JEFFRY: likely dehydration in the s/o acute illness. Resolved with IVF hydration. NSTEMI type 2: he denies chest pain. Troponin peaked at 0.06. EKG without acute ischemic changes. Likely type 2 , demand ischemia, in the s/o respiratory failure. - continue home ASA/statin therapy - telemetry - nitro PRN CP - repeat EKG PRN CP LLE swelling - LLE duplex US negative for DVT - Lovenox ordered as per above Skin Breakdown on Sacrum/Scrotum - frequent turns while in bed - OOB to chair TID - elevate scrotum and keep as dry as possible with Nystatin powder - wound care consult Acute Metabolic Encephalopathy: likely due to delirium in the s/o acute illness. - delirium precautions - avoid opioids/BZD and other sedating medications Code Status: DNR/DNI Dispo: The only phone number we have on file is the patient's house number. His has and his only remaining family is his sister, who I have not been able to reach. He lives alone and was previously walking independently and driving, before this hospitalization. Given his age, multiple comorbidities and increasing oxygen needs, he is likely to have a prolonged hospital stay and may require SNF placement on discharge. - Time Time Spent with patient: 35 or more minutes Anticipated Discharge Disposition: Senior Living Facility Anticipated Discharge Timeframe: within 72 hours
[2020-10-13 22:56] LABS: ARTERIAL BLOOD FIO2 50%; ARTERIAL BLOOD H2CO3 1.57 mmol/L (1.05-1.35); ARTERIAL BLOOD HCO3 32.2 mmol/L (20-24); ARTERIAL BLOOD O2 SATURATION 95.8 % (94-98); ARTERIAL BLOOD PCO2 52.3 mmHg (35-45); ARTERIAL BLOOD PH 7.41 (7.35-7.45); ARTERIAL BLOOD PO2 80.6 mmHg (80-100); ARTERIAL BLOOD TOTAL CO2 33.8 mmol/L (23-27)
[2020-10-13] MEDS: ATORVASTATIN CALCIUM 40 MG TABLET PO SCH (23:22)
[2020-10-13] MEDS: CEFTRIAXONE 1 GM/D5W RTU 1 GM/50 ML RTUPB IV SCH (23:22)
[2020-10-14 04:51] LABS: ABSOLUTE LYMPHOCYTES (AUTO) 0.3 10^3/uL (0.5-4.7); ABSOLUTE MONOCYTES (AUTO) 0.5 10^3/uL (0.1-1.4); ABSOLUTE NEUT (AUTO) 3.2 10^3/uL (1.7-8.2); BASOPHILS % (AUTO) 0.3 % (0-2); HEMATOCRIT 40.6 % (37.9-51.0); HEMOGLOBIN 13.6 g/dL (13.5-17.0); LYMPHOCYTES % (AUTO) 7.7 % (13-45); MEAN CORPUSCULAR HEMOGLOBIN 30.8 pg (27.0-33.4); MEAN CORPUSCULAR HGB CONC 33.5 g/dL (32.0-36.0); MEAN CORPUSCULAR VOLUME 92 fl (80-97); MONOCYTES % (AUTO) 11.7 % (3-13); PLATELET COUNT 166 10^3/uL (150-450); RED BLOOD COUNT 4.42 10^6/uL (4.35-5.55); RED CELL DISTRIBUTION WIDTH 14.3 % (11.5-14.0); SEGMENTED NEUTROPHILS % (AUTO) 80.3 % (42-78); TOTAL CELLS COUNTED % (AUTO) 100 %
[2020-10-14 05:26] LABS: ALBUMIN 2.7 g/dL (3.5-5.0); ALKALINE PHOSPHATASE 54 U/L (38-126); ANION GAP 5 (5-19); ASPARTATE AMINO TRANSFERASE 38 U/L (17-59); BILIRUBIN,DIRECT 0.4 mg/dL (0.0-0.4); BILIRUBIN,TOTAL 0.8 mg/dL (0.2-1.3); BLOOD UREA NITROGEN 31 mg/dL (7-20); CALCIUM 8.4 mg/dL (8.4-10.2); CARBON DIOXIDE 34 mmol/L (22-30); CHLORIDE 98 mmol/L (98-107); GLUCOSE 123 mg/dL (75-110); POTASSIUM 4.6 mmol/L (3.6-5.0); TOTAL PROTEIN 5.6 g/dL (6.3-8.2)
[2020-10-14] MEDS ORDERED: IVERMECTIN 3 MG TABLET PO ONE (06:00)
[2020-10-14] MEDS: PANTOPRAZOLE SODIUM 40 MG TABLET.DR PO SCH (06:32)
[2020-10-14 08:37] LABS: ARTERIAL BLOOD BASE EXCESS 9.7 mmol/L; ARTERIAL BLOOD H2CO3 1.48 mmol/L (1.05-1.35); ARTERIAL BLOOD O2 SATURATION 94.5 % (94-98); ARTERIAL BLOOD PCO2 49.1 mmHg (35-45); ARTERIAL BLOOD PH 7.47 (7.35-7.45); ARTERIAL BLOOD PO2 68.5 mmHg (80-100); ARTERIAL BLOOD TOTAL CO2 36.5 mmol/L (23-27)
[2020-10-14] MEDS: INSULIN LISPRO 100 UNIT/ML 3 ML VIAL SUBCUT SCH ×4 (08:41→21:28)
[2020-10-14 08:44] LABS: ARTERIAL BLOOD FIO2 50%
[2020-10-14] MEDS: DEXAMETHASONE SOD PHOS INJ 10 MG/1 ML VIAL IV SCH (09:50)
[2020-10-14] MEDS: ASPIRIN 81 MG TABLET, ENT COATED PO SCH (09:51)
[2020-10-14] MEDS: CHOLECALCIFEROL (D3) 1,000 UNIT (25 MCG) TABLET PO SCH (09:51)
[2020-10-14] MEDS: ASCORBIC ACID 500 MG TABLET PO SCH ×2 (09:51→17:48)
[2020-10-14] MEDS: ZINC SULFATE 220 MG CAPSULE PO SCH (09:51)
[2020-10-14] MEDS: ENOXAPARIN SODIUM INJ 120 MG/0.8 ML DISP.SYRIN SUBCUT SCH ×2 (09:51→21:28)
[2020-10-14] MEDS: NYSTATIN/TRIAMCIN CREAM 15 GM TP SCH ×4 (09:51→21:40)
[2020-10-14] MEDS ORDERED: ONDANSETRON HCL INJ/PF 4 MG/2 ML SDV IV PRN (10:00)
[2020-10-14] MEDS ORDERED: FUROSEMIDE INJ/PF 40 MG/4 ML SDV IV ONE ×2 (10:00→17:00)
[2020-10-14] MEDS ORDERED: REMDESIVIR 200 MG in NORMAL SALINE 250 ML IV ONE (12:00)
--- NOTE | 2020-10-14 16:06 | PDOC PROGRESS REPORT ---
Subjective Date:: 10/14/20 Subjective:: ARIAS ETIENNE is a 85 year old male with PMH of HTN, HLD, DM2, CHF who prese nts with lethargy. He is an extremely poor historian. I was unable to reach family and am waiting to receive a call back from his spouse. History obtained from ED physicians and medical records. He had been feeling very tired for the last at least 10 days. No fevers or chills. Denies change in taste/smell. He has had a minimal cough. He denies any nausea, vomiting, diarrhea. He denies any pain. Upon arrival, EMS found him to be hypoxic to 79% on RA. He was placed on NC. In the ED, he has required progressively increasing doses of oxygen and is now on a NRB. Day 7 Hospital stay 10/14/20 Patient was seen and examined at bedside. Currently on BIPAP 15/9 50% FIO2 saturating 92%. Still with exertional dyspnea. Remdesivir started today. He has completed Ivermectin dose. Reason For Visit: COVID-19, PNEUMONIA Physical Exam Vital Signs: Temp Pulse Resp BP Pulse Ox 97.2 F 55 L 24 H 100/60 97 10/14/20 08:51 10/14/20 14:00 10/14/20 08:00 10/13/20 15:08 10/14/20 08:00 Intake & Output 10/13/20 10/14/20 10/15/20 06:59 06:59 06:59 Intake Total 365 720 50 Output Total 800 425 Balance -435 295 50 Weight 116.9 kg 117.5 kg General appearance: PRESENT: cooperative, other - moderate distress Head exam: PRESENT: atraumatic, normocephalic Eye exam: PRESENT: EOMI, PERRLA Mouth exam: PRESENT: moist Neck exam: PRESENT: full ROM Respiratory exam: PRESENT: rales, symmetrical Cardiovascular exam: PRESENT: RRR, +S1, +S2 Pulses: PRESENT: +2 pedal pulses bilateral GI/Abdominal exam: PRESENT: normal bowel sounds, soft. ABSENT: rebound, tender ness Extremities exam: PRESENT: full ROM Musculoskeletal exam: PRESENT: full ROM Neurological exam: PRESENT: alert, awake, oriented to person, oriented to place, oriented to time, oriented to situation Psychiatric exam: PRESENT: normal mood Skin exam: PRESENT: normal color Results Laboratory Results: 10/14/20 04:14 10/14/20 04:14 10/13/20 10/13/20 10/14/20 17:10 21:55 04:14 WBC RBC Hgb Hct MCV MCH MCHC RDW Plt Count Seg Neutrophils % Carbonic Acid 1.37 H 1.57 H HCO3/H2CO3 Ratio 24:1 20:1 ABG pH 7.48 H 7.41 ABG pCO2 45.5 H 52.3 H ABG pO2 67.4 L 80.6 ABG HCO3 33.4 H 32.2 H ABG O2 Saturation 94.5 95.8 ABG Base Excess 8.7 6.0 FiO2 30% 50% Sodium 136.7 L Potassium 4.6 Chloride 98 Carbon Dioxide 34 H Anion Gap 5 BUN 31 H Creatinine 0.91 Est GFR ( Amer) > 60 Glucose 123 H Calcium 8.4 Ferritin 1280.00 H Total Bilirubin 0.8 AST 38 Alkaline Phosphatase 54 C-Reactive Protein 152.0 H Total Protein 5.6 L Albumin 2.7 L 10/14/20 10/14/20 04:14 08:25 WBC 4.0 RBC 4.42 Hgb 13.6 Hct 40.6 MCV 92 MCH 30.8 MCHC 33.5 RDW 14.3 H Plt Count 166 Seg Neutrophils % 80.3 H Carbonic Acid 1.48 H HCO3/H2CO3 Ratio 23:1 ABG pH 7.47 H ABG pCO2 49.1 H ABG pO2 68.5 L ABG HCO3 35.0 H ABG O2 Saturation 94.5 ABG Base Excess 9.7 FiO2 50% Sodium Potassium Chloride Carbon Dioxide Anion Gap BUN Creatinine Est GFR ( Amer) Glucose Calcium Ferritin Total Bilirubin AST Alkaline Phosphatase C-Reactive Protein Total Protein Albumin 10/08/20 12:40 Blood Blood Culture - Final NO GROWTH IN 5 DAYS 10/08/20 11:36 Blood Blood Culture - Final NO GROWTH IN 5 DAYS 10/08/20 10/08/20 10/08/20 11:36 11:36 18:10 Creatine Kinase 121 CK-MB (CK-2) 0.99 Troponin I 0.064 0.055 NT-Pro-B Natriuret Pep 4630 H Impressions: Venous Doppler Study 10/08/20 00:00 IMPRESSION: No DVT in the left lower extremity. Chest X-Ray 10/08/20 12:16 IMPRESSION: In the appropriate clinical setting, findings are consistent with multi lobar pneumonia. Assessment and Plan - Diagnosis (1) Acute respiratory failure with hypoxia and hypercapnia Is this a current diagnosis for this admission?: Yes Plan: - 2/2 COVID pneumonia - currently on BIPAP 50% FIO2 15/8 ABG showed PO2 68% which is normal - continue BIPAP support - currently undergoing COVID pneumonia treatment (2) Pneumonia due to COVID-19 virus Is this a current diagnosis for this admission?: Yes Plan: -Covid-19 test positive, BCx x2 with NGTD - antibiotics with azithromycin/ceftriaxone x5 days - dexamethasone 6 mg IV daily x10 days - Ivermectin 18 mg PO on days 1 and 3 - completed - D-dimer elevated, on therapeutic Lovenox - trend ferritin, CRP, LDH and D-dimer - continue Zinc, B-complex, Vit C, Vit D (3) JEFFRY (acute kidney injury) Is this a current diagnosis for this admission?: Yes Plan: - Crea 1.4>0.9 resolved (4) NSTEMI (non-ST elevated myocardial infarction) Is this a current diagnosis for this admission?: Yes Plan: - Trop peaked at 0.[address] elevation - likely 2/2 demand ischemia - continue aspirin and statin (5) Acute metabolic encephalopathy Is this a current diagnosis for this admission?: Yes Plan: - 2/2 delirium from acute illness (6) Physical deconditioning Is this a current diagnosis for this admission?: Yes Plan: - would need SNF - will consult PT/OT once he is on less O2 needs (7) Pressure ulcer Qualifiers: Pressure injury location: sacral region Pressure injury stage: stage 1 Qualified Code(s): L89.151 - Pressure ulcer of sacral region, stage 1 Is this a current diagnosis for this admission?: Yes Plan: - frequent turns - wound care consult - Plan Summary Summary: J - Time Time Spent with patient: 25-34 minutes Medications reviewed and adjusted accordingly: Yes Anticipated Discharge Disposition: Group Home Facility Anticipated Discharge Timeframe: tbd
[2020-10-14] MEDS: TAMSULOSIN HCL 0.4 MG CAP.SR.24H PO SCH (17:48)
[2020-10-14] MEDS: AZITHROMYCIN 250 MG TABLET PO SCH (17:48)
[2020-10-14 17:55] LABS: PARTIAL THROMBOPLASTIN TIME 25.3 SEC (23.5-35.8)
[2020-10-14 17:57] LABS: D-DIMER 1.38 ug/mL (0.00-0.50)
[2020-10-14] MEDS: CEFTRIAXONE 1 GM/D5W RTU 1 GM/50 ML RTUPB IV SCH (21:28)
[2020-10-14] MEDS: ATORVASTATIN CALCIUM 40 MG TABLET PO SCH (21:28)
[2020-10-15 05:22] LABS: ABSOLUTE LYMPHOCYTES (AUTO) 0.5 10^3/uL (0.5-4.7); ABSOLUTE MONOCYTES (AUTO) 0.7 10^3/uL (0.1-1.4); ABSOLUTE NEUT (AUTO) 4.1 10^3/uL (1.7-8.2); BASOPHILS % (AUTO) 0.1 % (0-2); EOSINOPHILS % (AUTO) 0.1 % (0-6); HEMATOCRIT 44.3 % (37.9-51.0); HEMOGLOBIN 14.9 g/dL (13.5-17.0); MEAN CORPUSCULAR HEMOGLOBIN 30.8 pg (27.0-33.4); MEAN CORPUSCULAR HGB CONC 33.6 g/dL (32.0-36.0); MEAN CORPUSCULAR VOLUME 92 fl (80-97); MONOCYTES % (AUTO) 13.2 % (3-13); PLATELET COUNT 198 10^3/uL (150-450); RED BLOOD COUNT 4.83 10^6/uL (4.35-5.55); RED CELL DISTRIBUTION WIDTH 14.4 % (11.5-14.0); SEGMENTED NEUTROPHILS % (AUTO) 77.6 % (42-78); TOTAL CELLS COUNTED % (AUTO) 100 %; WHITE BLOOD COUNT 5.3 10^3/uL (4.0-10.5)
[2020-10-15] MEDS: PANTOPRAZOLE SODIUM 40 MG TABLET.DR PO SCH (05:28)
[2020-10-15 05:31] LABS: ALBUMIN 3.1 g/dL (3.5-5.0); ALKALINE PHOSPHATASE 61 U/L (38-126); ANION GAP 5 (5-19); ASPARTATE AMINO TRANSFERASE 43 U/L (17-59); BILIRUBIN,DIRECT 0.5 mg/dL (0.0-0.4); BILIRUBIN,TOTAL 0.8 mg/dL (0.2-1.3); BLOOD UREA NITROGEN 39 mg/dL (7-20); C-REACTIVE PROTEIN 62.3 mg/L (<10.0); CALCIUM 8.7 mg/dL (8.4-10.2); CARBON DIOXIDE 38 mmol/L (22-30); CHLORIDE 96 mmol/L (98-107); GLUCOSE 98 mg/dL (75-110); POTASSIUM 4.1 mmol/L (3.6-5.0); TOTAL PROTEIN 6.2 g/dL (6.3-8.2)
[2020-10-15] MEDS: INSULIN LISPRO 100 UNIT/ML 3 ML VIAL SUBCUT SCH ×4 (07:52→22:01)
[2020-10-15] MEDS: ZINC SULFATE 220 MG CAPSULE PO SCH (11:49)
[2020-10-15] MEDS: DEXAMETHASONE SOD PHOS INJ 10 MG/1 ML VIAL IV SCH (11:50)
[2020-10-15] MEDS: REMDESIVIR 100 MG in NORMAL SALINE 250 ML IV SCH (11:50)
[2020-10-15] MEDS: ENOXAPARIN SODIUM INJ 120 MG/0.8 ML DISP.SYRIN SUBCUT SCH ×2 (11:51→22:01)
[2020-10-15] MEDS: CHOLECALCIFEROL (D3) 1,000 UNIT (25 MCG) TABLET PO SCH (11:51)
[2020-10-15] MEDS: ASCORBIC ACID 500 MG TABLET PO SCH ×2 (11:51→17:14)
[2020-10-15] MEDS: ASPIRIN 81 MG TABLET, ENT COATED PO SCH (11:51)
[2020-10-15] MEDS: NYSTATIN/TRIAMCIN CREAM 15 GM TP SCH ×4 (11:52→22:02)
--- NOTE | 2020-10-15 14:19 | PDOC PROGRESS REPORT ---
Subjective Date:: 10/15/20 Subjective:: ARIAS ETIENNE is a 85 year old male with PMH of HTN, HLD, DM2, CHF who prese nts with lethargy. He is an extremely poor historian. I was unable to reach family and am waiting to receive a call back from his spouse. History obtained from ED physicians and medical records. He had been feeling very tired for the last at least 10 days. No fevers or chills. Denies change in taste/smell. He has had a minimal cough. He denies any nausea, vomiting, diarrhea. He denies any pain. Upon arrival, EMS found him to be hypoxic to 79% on RA. He was placed on NC. In the ED, he has required progressively increasing doses of oxygen and is now on a NRB. Day 7 Hospital stay 10/14/20 Patient was seen and examined at bedside. Currently on BIPAP 15/9 50% FIO2 saturating 92%. Still with exertional dyspnea. Remdesivir started today. He has completed Ivermectin dose. Day 8 Hospital stay 10/15/20 Patient was seen and examined at bedside. Currently on 6L of NC saturating 92%, breathing improved with some exertional dyspnea. Receiving remdesivir Reason For Visit: COVID-19, PNEUMONIA Physical Exam Vital Signs: Temp Pulse Resp BP Pulse Ox 97.8 F 59 L 20 133/72 H 92 10/15/20 11:13 10/15/20 11:13 10/15/20 11:13 10/15/20 11:13 10/15/20 11:13 Intake & Output 10/14/20 10/15/20 10/16/20 06:59 06:59 06:59 Intake Total 720 850 Output Total 425 1975 Balance 295 -1125 Weight 117.5 kg 118.4 kg General appearance: PRESENT: cooperative, mild distress Head exam: PRESENT: atraumatic Eye exam: PRESENT: EOMI, PERRLA Mouth exam: PRESENT: moist Neck exam: PRESENT: full ROM Respiratory exam: PRESENT: crackles, symmetrical, unlabored Cardiovascular exam: PRESENT: RRR, +S1, +S2 Pulses: PRESENT: +2 pedal pulses bilateral GI/Abdominal exam: PRESENT: normal bowel sounds, soft Extremities exam: PRESENT: full ROM Musculoskeletal exam: PRESENT: full ROM Neurological exam: PRESENT: alert, awake, oriented to person, oriented to place, oriented to time, oriented to situation Psychiatric exam: PRESENT: normal mood Skin exam: PRESENT: normal color Results Laboratory Results: 10/15/20 04:36 10/15/20 04:36 10/15/20 10/15/20 04:36 04:36 WBC 5.3 RBC 4.83 Hgb 14.9 Hct 44.3 MCV 92 MCH 30.8 MCHC 33.6 RDW 14.4 H Plt Count 198 Seg Neutrophils % 77.6 Sodium 139.3 Potassium 4.1 Chloride 96 L Carbon Dioxide 38 H Anion Gap 5 BUN 39 H Creatinine 1.13 Est GFR ( Amer) > 60 Glucose 98 Calcium 8.7 Ferritin 1370.00 H Total Bilirubin 0.8 AST 43 Alkaline Phosphatase 61 C-Reactive Protein 62.3 H Total Protein 6.2 L Albumin 3.1 L 10/08/20 10/08/20 10/08/20 11:36 11:36 18:10 Creatine Kinase 121 CK-MB (CK-2) 0.99 Troponin I 0.064 0.055 NT-Pro-B Natriuret Pep 4630 H Impressions: Venous Doppler Study 10/08/20 00:00 IMPRESSION: No DVT in the left lower extremity. Chest X-Ray 10/08/20 12:16 IMPRESSION: In the appropriate clinical setting, findings are consistent with multi lobar pneumonia. Assessment and Plan - Diagnosis (1) Acute respiratory failure with hypoxia and hypercapnia Is this a current diagnosis for this admission?: Yes Plan: - 2/2 COVID pneumonia - currently on 6L nasal cannula - currently undergoing COVID pneumonia treatment (2) Pneumonia due to COVID-19 virus Is this a current diagnosis for this admission?: Yes Plan: -Covid-19 test positive, BCx x2 with NGTD - antibiotics with azithromycin/ceftriaxone x5 days - dexamethasone 6 mg IV daily x10 days - Ivermectin 18 mg PO on days 1 and 3 - completed - on remdesivir D2 - D-dimer elevated, on therapeutic Lovenox - continue Zinc, B-complex, Vit C, Vit D (3) JEFFRY (acute kidney injury) Is this a current diagnosis for this admission?: Yes Plan: - Crea 1.4>0.9 resolved (4) NSTEMI (non-ST elevated myocardial infarction) Is this a current diagnosis for this admission?: Yes Plan: - Trop peaked at 0.[address] elevation - likely 2/2 demand ischemia - continue aspirin and statin (5) Acute metabolic encephalopathy Is this a current diagnosis for this admission?: Yes Plan: - 2/2 delirium from acute illness (6) Physical deconditioning Is this a current diagnosis for this admission?: Yes Plan: - would need SNF - will consult PT/OT once he is on less O2 needs (7) Pressure ulcer Qualifiers: Pressure injury location: sacral region Pressure injury stage: stage 1 Qualified Code(s): L89.151 - Pressure ulcer of sacral region, stage 1 Is this a current diagnosis for this admission?: Yes Plan: - frequent turns - wound care consult - Time Time Spent with patient: 15-24 minutes Medications reviewed and adjusted accordingly: Yes Anticipated Discharge Disposition: Home, Self Care Anticipated Discharge Timeframe: tbd
[2020-10-15] MEDS: AZITHROMYCIN 250 MG TABLET PO SCH (17:14)
[2020-10-15] MEDS: TAMSULOSIN HCL 0.4 MG CAP.SR.24H PO SCH (17:15)
[2020-10-15] MEDS: ATORVASTATIN CALCIUM 40 MG TABLET PO SCH (22:01)
[2020-10-16] MEDS: PANTOPRAZOLE SODIUM 40 MG TABLET.DR PO SCH (05:26)
[2020-10-16 07:07] LABS: ABSOLUTE LYMPHOCYTES (AUTO) 0.7 10^3/uL (0.5-4.7); ABSOLUTE MONOCYTES (AUTO) 0.6 10^3/uL (0.1-1.4); ABSOLUTE NEUT (AUTO) 4.7 10^3/uL (1.7-8.2); BASOPHILS % (AUTO) 0.4 % (0-2); EOSINOPHILS % (AUTO) 0.7 % (0-6); HEMOGLOBIN 14.5 g/dL (13.5-17.0); MEAN CORPUSCULAR HEMOGLOBIN 30.1 pg (27.0-33.4); MEAN CORPUSCULAR VOLUME 91 fl (80-97); MONOCYTES % (AUTO) 9.8 % (3-13); PLATELET COUNT 218 10^3/uL (150-450); RED BLOOD COUNT 4.82 10^6/uL (4.35-5.55); SEGMENTED NEUTROPHILS % (AUTO) 78.1 % (42-78); TOTAL CELLS COUNTED % (AUTO) 100 %
[2020-10-16 07:32] LABS: ALBUMIN 2.8 g/dL (3.5-5.0); ALKALINE PHOSPHATASE 57 U/L (38-126); ASPARTATE AMINO TRANSFERASE 37 U/L (17-59); BILIRUBIN,DIRECT 0.3 mg/dL (0.0-0.4); BILIRUBIN,TOTAL 0.8 mg/dL (0.2-1.3); BLOOD UREA NITROGEN 41 mg/dL (7-20); C-REACTIVE PROTEIN 42.9 mg/L (<10.0); CALCIUM 8.4 mg/dL (8.4-10.2); GLUCOSE 90 mg/dL (75-110); POTASSIUM 4.1 mmol/L (3.6-5.0); TOTAL PROTEIN 5.9 g/dL (6.3-8.2)
[2020-10-16 07:35] LABS: CARBON DIOXIDE 38 mmol/L (22-30); CHLORIDE 99 mmol/L (98-107)
[2020-10-16 07:41] LABS: ANION GAP 4 (5-19)
[2020-10-16] MEDS: INSULIN LISPRO 100 UNIT/ML 3 ML VIAL SUBCUT SCH ×4 (08:43→21:46)
[2020-10-16] MEDS: ZINC SULFATE 220 MG CAPSULE PO SCH (09:34)
[2020-10-16] MEDS: REMDESIVIR 100 MG in NORMAL SALINE 250 ML IV SCH (10:14)
[2020-10-16] MEDS: ASPIRIN 81 MG TABLET, ENT COATED PO SCH (10:15)
[2020-10-16] MEDS: CHOLECALCIFEROL (D3) 1,000 UNIT (25 MCG) TABLET PO SCH (10:15)
[2020-10-16] MEDS: ASCORBIC ACID 500 MG TABLET PO SCH ×2 (10:15→17:00)
[2020-10-16] MEDS: DEXAMETHASONE SOD PHOS INJ 10 MG/1 ML VIAL IV SCH (10:15)
[2020-10-16] MEDS: NYSTATIN/TRIAMCIN CREAM 15 GM TP SCH ×4 (10:16→21:07)
[2020-10-16] MEDS: ENOXAPARIN SODIUM INJ 120 MG/0.8 ML DISP.SYRIN SUBCUT SCH ×2 (10:16→21:06)
[2020-10-16] MEDS ORDERED: IVERMECTIN 3 MG TABLET PO ONE (15:00)
[2020-10-16] MEDS ORDERED: HYDROCODONE/ACETAMINOPHEN 5-325 MG TABLET PO PRN (16:19)
--- NOTE | 2020-10-16 16:24 | PDOC PROGRESS REPORT ---
Subjective Date:: 10/16/20 Subjective:: ARIAS ETIENNE is a 85 year old male with PMH of HTN, HLD, DM2, CHF who prese nts with lethargy. He is an extremely poor historian. I was unable to reach family and am waiting to receive a call back from his spouse. History obtained from ED physicians and medical records. He had been feeling very tired for the last at least 10 days. No fevers or chills. Denies change in taste/smell. He has had a minimal cough. He denies any nausea, vomiting, diarrhea. He denies any pain. Upon arrival, EMS found him to be hypoxic to 79% on RA. He was placed on NC. In the ED, he has required progressively increasing doses of oxygen and is now on a NRB. Day 7 Hospital stay 10/14/20 Patient was seen and examined at bedside. Currently on BIPAP 15/9 50% FIO2 saturating 92%. Still with exertional dyspnea. Remdesivir started today. He has completed Ivermectin dose. Day 8 Hospital stay 10/15/20 Patient was seen and examined at bedside. Currently on 6L of NC saturating 92%, breathing improved with some exertional dyspnea. Receiving remdesivir Day 9 Hospital stay 10/16/20 Patient was seen and examined at bedside. According to the nurse he was put back on Bipap last night due to desaturation. Currently at 50% FIO2 saturating 98%. He reports that his breathing is about the same, not worsening. Denies any chest pain. has dyspnea on exertion. Reason For Visit: COVID-19, PNEUMONIA Physical Exam Vital Signs: Temp Pulse Resp BP Pulse Ox 97.6 F 65 25 H 118/72 98 10/16/20 12:20 10/16/20 14:00 10/16/20 12:20 10/16/20 12:20 10/16/20 12:20 Intake & Output 10/15/20 10/16/20 10/17/20 06:59 06:59 06:59 Intake Total 850 590 250 Output Total 2165 575 Balance -1125 15 250 Weight 118.4 kg 118.1 kg General appearance: PRESENT: morbidly obese, other - moderate distress Head exam: PRESENT: atraumatic, normocephalic Eye exam: PRESENT: EOMI, PERRLA Mouth exam: PRESENT: moist Neck exam: PRESENT: full ROM Respiratory exam: PRESENT: clear to auscultation priti, symmetrical, unlabored Cardiovascular exam: PRESENT: RRR, +S1, +S2 Pulses: PRESENT: +2 pedal pulses bilateral GI/Abdominal exam: PRESENT: normal bowel sounds, soft. ABSENT: rebound, tenderness Extremities exam: PRESENT: full ROM Musculoskeletal exam: PRESENT: full ROM Neurological exam: PRESENT: alert, awake, oriented to person, oriented to place, oriented to time, oriented to situation Psychiatric exam: PRESENT: normal mood Skin exam: PRESENT: normal color Results Laboratory Results: 10/16/20 06:21 10/16/20 06:21 10/16/20 10/16/20 06:21 06:21 WBC 6.0 RBC 4.82 Hgb 14.5 Hct 44.0 MCV 91 MCH 30.1 MCHC 33.0 RDW 14.0 Plt Count 218 Seg Neutrophils % 78.1 H Sodium 140.7 Potassium 4.1 Chloride 99 Carbon Dioxide 38 H Anion Gap 4 L BUN 41 H Creatinine 1.05 Est GFR ( Amer) > 60 Glucose 90 Calcium 8.4 Ferritin 994.00 H Total Bilirubin 0.8 AST 37 Alkaline Phosphatase 57 C-Reactive Protein 42.9 H Total Protein 5.9 L Albumin 2.8 L 10/08/20 10/08/20 10/08/20 11:36 11:36 18:10 Creatine Kinase 121 CK-MB (CK-2) 0.99 Troponin I 0.064 0.055 NT-Pro-B Natriuret Pep 4630 H Impressions: Venous Doppler Study 10/08/20 00:00 IMPRESSION: No DVT in the left lower extremity. Chest X-Ray 10/08/20 12:16 IMPRESSION: In the appropriate clinical setting, findings are consistent with multi lobar pneumonia. Assessment and Plan - Diagnosis (1) Acute respiratory failure with hypoxia and hypercapnia Is this a current diagnosis for this admission?: Yes Plan: - 2/2 COVID pneumonia - currently on 50% FIO2 bipap - currently undergoing COVID pneumonia treatment with steroids and remdesivir (2) Pneumonia due to COVID-19 virus Is this a current diagnosis for this admission?: Yes Plan: -Covid-19 test positive, BCx x2 with NGTD - antibiotics with azithromycin/ceftriaxone x5 days - dexamethasone 6 mg IV daily x10 days - Ivermectin 18 mg PO on days 1 and 3 - completed - on remdesivir D3 - D-dimer elevated, on therapeutic Lovenox - continue Zinc, B-complex, Vit C, Vit D (3) JEFFRY (acute kidney injury) Is this a current diagnosis for this admission?: Yes Plan: - Crea 1.4>0.9 resolved (4) NSTEMI (non-ST elevated myocardial infarction) Is this a current diagnosis for this admission?: Yes Plan: - Trop peaked at 0.[address] elevation - likely 2/2 demand ischemia - continue aspirin and statin (5) Acute metabolic encephalopathy Is this a current diagnosis for this admission?: Yes Plan: - 2/2 delirium from acute illness (6) Physical deconditioning Is this a current diagnosis for this admission?: Yes Plan: - would need SNF - will consult PT/OT once he is on less O2 needs (7) Pressure ulcer Qualifiers: Pressure injury location: sacral region Pressure injury stage: stage 1 Qualified Code(s): L89.151 - Pressure ulcer of sacral region, stage 1 Is this a current diagnosis for this admission?: Yes Plan: - frequent turns - wound care consult - Time Time Spent with patient: 25-34 minutes Medications reviewed and adjusted accordingly: Yes Anticipated Discharge Disposition: Home with Home Health Anticipated Discharge Timeframe: tbd
[2020-10-16] MEDS: TAMSULOSIN HCL 0.4 MG CAP.SR.24H PO SCH (17:00)
[2020-10-16 18:37] LABS: PARTIAL THROMBOPLASTIN TIME 37.4 SEC (23.5-35.8)
[2020-10-16 18:39] LABS: D-DIMER 0.74 ug/mL (0.00-0.50)
[2020-10-16] MEDS: ATORVASTATIN CALCIUM 40 MG TABLET PO SCH (21:06)
--- NOTE | 2020-10-16 23:03 | XCELERA REPORT ---
[address] [address] Transthoracic Echocardiogram Report Name: ARIAS ETIENNE V Age: 85 yrs Gender: Male : 1935 Patient Status: Inpatient Patient Location: [facility]^A Study Date: 10/16/2020 03:44 PM Height: 71 in Weight: 261 lb BSA: 2.4 m2 Procedure: A complete two-dimensional transthoracic echocardiogram was performed (2D, M-mode, spectral and color flow Doppler). The study was technically difficult with many images being suboptimal in quality. Reason For Study: CHF Ordering Physician: RADHA FLORENCE Performed By: Halle Chase Interpretation Summary LEFT VENTRICLE: LV Systolic function: LVEF is felt to be within normal limits. Best estimate is approximately LVEF is 60 to 65%. LV Diastolic Function: Grade II diastolic dysfunction noted. Wall motion: No definite regional wall motion abnormalities are noted. Left ventricular chamber size: is within normal limit. Left ventricular wall thickness: is increased indicative of Mild LVH. RIGHT VENTRICLE: RV systolic function: moderately depressed. Right Ventricle Size: moderately dilated LEFT ATRIUM size: is mildly dilated. RIGHT ATRIUM size: moderately dilated. INTER ATRIAL SEPTUM: No definite atrial septal defect noted however a small PFO could be missed. AORTIC ROOT: seems to be within normal limits. ASCENDING AORTA: is not well visualized. INFERIOR VENA CAVA: was not well visualized but seems to be WNL with normal respiratory variation. VALVES: MITRAL VALVE: Leaflets are mildly thickened. Mobility seems to be within normal limits. Mitral Regurgitation: Trace mitral regurgitation is noted. Mitral Stenosis: No mitral stenosis noted. Mitral valve prolapse: none noted. AORTIC VALVE: seems to be trileaflet with mild thickening but adequate excursion. Aortic stenosis: No aortic stenosis noted. Aortic regurgitation: No aortic incompetence noted. TRICUSPID VALVE: mobility and structures within normal limit. Tricuspid stenosis: no tricuspid stenosis noted. Tricuspid regurgitation: trace to mild tricuspid regurgitation noted. Estimated RVSP: 65 to 70 mm peak consistent with severe pulmonary hypertension. PULMONARY VALVE: was not well visualized but no significant abnormalities suspected. Pulmonary stenosis: no pulmonary stenosis noted. Pulmonary regurgitation: no significant pulmonary regurgitation noted. MASSES AND THROMBUS: No definite intracardiac thrombus or masses are noted. PERICARDIUM: No pericardial effusion was noted. IMPRESSION: 1. Normal LVEF. RVEF moderately depressed 2. Mild LVH noted. RVH noted. 3. Grade II [mild] Diastolic Dysfunction noted. 4. Trace to mild tricuspid regurgitation noted. 5. LA is mildly dilated. RA moderately dilated. RV moderately dilated. 6. Severe pulmonary hypertension noted. MMode/2D Measurements & Calculations RVDd: 2.4 cm LVIDd: 3.7 cm FS: 27.9 % Ao root diam: 3.2 cm IVSd: 1.1 cm LVIDs: 2.7 cm EDV(Teich): 59.8 ml Ao root area: 8.1 cm2 LVPWd: 1.2 cm ESV(Teich): 27.0 ml EF(Teich): 54.8 % Doppler Measurements & Calculations MV E max juany: MV dec slope: Ao V2 max: LV V1 max P.7 cm/sec 270.6 cm/sec2 126.3 cm/sec 6.0 mmHg MV A max juany: MV dec time: 0.25 sec Ao max PG: LV V1 max: 94.9 cm/sec 6.4 mmHg 122.6 cm/sec MV E/A: 0.72 PA V2 max: TR max juany: 84.8 cm/sec 379.1 cm/sec PA max P.9 mmHgTR max P.5 mmHg : RADHA FLORENCE Shyamal
[2020-10-17] MEDS: PANTOPRAZOLE SODIUM 40 MG TABLET.DR PO SCH (05:18)
[2020-10-17 06:33] LABS: ABSOLUTE LYMPHOCYTES (AUTO) 0.7 10^3/uL (0.5-4.7); ABSOLUTE MONOCYTES (AUTO) 0.6 10^3/uL (0.1-1.4); ABSOLUTE NEUT (AUTO) 4.2 10^3/uL (1.7-8.2); BASOPHILS % (AUTO) 0.3 % (0-2); EOSINOPHILS % (AUTO) 0.6 % (0-6); HEMATOCRIT 44.3 % (37.9-51.0); HEMOGLOBIN 14.5 g/dL (13.5-17.0); LYMPHOCYTES % (AUTO) 12.2 % (13-45); MEAN CORPUSCULAR HEMOGLOBIN 30.1 pg (27.0-33.4); MEAN CORPUSCULAR HGB CONC 32.7 g/dL (32.0-36.0); MEAN CORPUSCULAR VOLUME 92 fl (80-97); MONOCYTES % (AUTO) 10.6 % (3-13); PLATELET COUNT 221 10^3/uL (150-450); RED BLOOD COUNT 4.83 10^6/uL (4.35-5.55); RED CELL DISTRIBUTION WIDTH 14.3 % (11.5-14.0); SEGMENTED NEUTROPHILS % (AUTO) 76.3 % (42-78); TOTAL CELLS COUNTED % (AUTO) 100 %; WHITE BLOOD COUNT 5.5 10^3/uL (4.0-10.5)
[2020-10-17 06:59] LABS: ALBUMIN 2.8 g/dL (3.5-5.0); ALKALINE PHOSPHATASE 62 U/L (38-126); ASPARTATE AMINO TRANSFERASE 41 U/L (17-59); BILIRUBIN,DIRECT 0.3 mg/dL (0.0-0.4); BILIRUBIN,TOTAL 0.9 mg/dL (0.2-1.3); BLOOD UREA NITROGEN 42 mg/dL (7-20); C-REACTIVE PROTEIN 40.5 mg/L (<10.0); CALCIUM 8.4 mg/dL (8.4-10.2); GLUCOSE 91 mg/dL (75-110); POTASSIUM 4.5 mmol/L (3.6-5.0); TOTAL PROTEIN 5.7 g/dL (6.3-8.2)
[2020-10-17 07:02] LABS: CARBON DIOXIDE 37 mmol/L (22-30); CHLORIDE 99 mmol/L (98-107)
[2020-10-17 07:05] LABS: ANION GAP 4 (5-19)
[2020-10-17] MEDS: INSULIN LISPRO 100 UNIT/ML 3 ML VIAL SUBCUT SCH ×4 (08:33→21:28)
[2020-10-17] MEDS: REMDESIVIR 100 MG in NORMAL SALINE 250 ML IV SCH (09:59)
[2020-10-17] MEDS: ASCORBIC ACID 500 MG TABLET PO SCH ×2 (10:00→18:35)
[2020-10-17] MEDS: CHOLECALCIFEROL (D3) 1,000 UNIT (25 MCG) TABLET PO SCH (10:00)
[2020-10-17] MEDS: ENOXAPARIN SODIUM INJ 120 MG/0.8 ML DISP.SYRIN SUBCUT SCH (10:00)
[2020-10-17] MEDS: DEXAMETHASONE SOD PHOS INJ 10 MG/1 ML VIAL IV SCH (10:00)
[2020-10-17] MEDS: ASPIRIN 81 MG TABLET, ENT COATED PO SCH (10:00)
[2020-10-17] MEDS: NYSTATIN/TRIAMCIN CREAM 15 GM TP SCH ×3 (10:01→18:36)
[2020-10-17] MEDS: ZINC SULFATE 220 MG CAPSULE PO SCH (10:01)
--- NOTE | 2020-10-17 14:59 | PDOC PROGRESS REPORT ---
Subjective Date:: 10/17/20 Subjective:: ARIAS ETIENNE is a 85 year old male with PMH of HTN, HLD, DM2, CHF who prese nts with lethargy. He is an extremely poor historian. I was unable to reach family and am waiting to receive a call back from his spouse. History obtained from ED physicians and medical records. He had been feeling very tired for the last at least 10 days. No fevers or chills. Denies change in taste/smell. He has had a minimal cough. He denies any nausea, vomiting, diarrhea. He denies any pain. Upon arrival, EMS found him to be hypoxic to 79% on RA. He was placed on NC. In the ED, he has required progressively increasing doses of oxygen and is now on a NRB. Day 7 Hospital stay 10/14/20 Patient was seen and examined at bedside. Currently on BIPAP 15/9 50% FIO2 saturating 92%. Still with exertional dyspnea. Remdesivir started today. He has completed Ivermectin dose. Day 8 Hospital stay 10/15/20 Patient was seen and examined at bedside. Currently on 6L of NC saturating 92%, breathing improved with some exertional dyspnea. Receiving remdesivir Day 9 Hospital stay 10/16/20 Patient was seen and examined at bedside. According to the nurse he was put back on Bipap last night due to desaturation. Currently at 50% FIO2 saturating 98%. He reports that his breathing is about the same, not worsening. Denies any chest pain. has dyspnea on exertion. D10 hospital stay 10/17/20 Patient was seen and examined at bedside. Complaining of back pain otherwise denies any worsening SOB. He is eager to go home and does not want to go to rehab, prefers home PT/OT. He is on D3 of 4 of remdesivir. Reason For Visit: COVID-19, PNEUMONIA Physical Exam Vital Signs: Temp Pulse Resp BP Pulse Ox 97.7 F 54 L 30 H 167/87 H 98 10/17/20 10:00 10/17/20 08:23 10/17/20 08:23 10/17/20 08:23 10/17/20 08:23 Intake & Output 10/16/20 10/17/20 10/18/20 06:59 06:59 06:59 Intake Total 590 490 Output Total 575 350 Balance 15 140 Weight 118.1 kg 117.8 kg General appearance: PRESENT: cooperative, mild distress Head exam: PRESENT: atraumatic, normocephalic Eye exam: PRESENT: EOMI, PERRLA Mouth exam: PRESENT: moist Neck exam: PRESENT: full ROM Respiratory exam: PRESENT: rales, symmetrical. ABSENT: wheezes Cardiovascular exam: PRESENT: RRR, +S1, +S2 Pulses: PRESENT: +2 pedal pulses bilateral GI/Abdominal exam: PRESENT: normal bowel sounds, soft. ABSENT: rebound, tenderness Extremities exam: PRESENT: full ROM Musculoskeletal exam: PRESENT: full ROM Neurological exam: PRESENT: alert, awake, oriented to person, oriented to place, oriented to time, oriented to situation Psychiatric exam: PRESENT: normal mood Skin exam: PRESENT: normal color Results Laboratory Results: 10/17/20 05:02 10/17/20 05:02 10/17/20 10/17/20 05:02 05:02 WBC 5.5 RBC 4.83 Hgb 14.5 Hct 44.3 MCV 92 MCH 30.1 MCHC 32.7 RDW 14.3 H Plt Count 221 Seg Neutrophils % 76.3 Sodium 139.6 Potassium 4.5 Chloride 99 Carbon Dioxide 37 H Anion Gap 4 L BUN 42 H Creatinine 1.03 Est GFR ( Amer) > 60 Glucose 91 Calcium 8.4 Ferritin 805.00 H Total Bilirubin 0.9 AST 41 Alkaline Phosphatase 62 C-Reactive Protein 40.5 H Total Protein 5.7 L Albumin 2.8 L 10/08/20 10/08/20 10/08/20 11:36 11:36 18:10 Creatine Kinase 121 CK-MB (CK-2) 0.99 Troponin I 0.064 0.055 NT-Pro-B Natriuret Pep 4630 H Impressions: Venous Doppler Study 10/08/20 00:00 IMPRESSION: No DVT in the left lower extremity. Chest X-Ray 10/08/20 12:16 IMPRESSION: In the appropriate clinical setting, findings are consistent with multi lobar pneumonia. Assessment and Plan - Diagnosis (1) Acute respiratory failure with hypoxia and hypercapnia Is this a current diagnosis for this admission?: Yes Plan: - 2/2 COVID pneumonia - currently on 6L nasal canula saturating 92% - currently undergoing COVID pneumonia treatment with steroids and remdesivir (2) Pneumonia due to COVID-19 virus Is this a current diagnosis for this admission?: Yes Plan: -Covid-19 test positive, BCx x2 with NGTD - antibiotics with azithromycin/ceftriaxone x5 days - dexamethasone 6 mg IV daily x10 days - Ivermectin 18 mg PO on days 1 and 3 - completed - on remdesivir D4 - D dimer decreased to 0.74 switched to 12 mg daily lovenox - continue Zinc, B-complex, Vit C, Vit D (3) JEFFRY (acute kidney injury) Is this a current diagnosis for this admission?: Yes Plan: - Crea 1.4>0.9 resolved (4) NSTEMI (non-ST elevated myocardial infarction) Is this a current diagnosis for this admission?: Yes Plan: - Trop peaked at 0.[address] elevation - likely 2/2 demand ischemia - continue aspirin and statin (5) Acute metabolic encephalopathy Is this a current diagnosis for this admission?: Yes Plan: - 2/2 delirium from acute illness (6) Physical deconditioning Is this a current diagnosis for this admission?: Yes Plan: - would need SNF but the patient refuses - home PT/OT (7) Pressure ulcer Qualifiers: Pressure injury location: sacral region Pressure injury stage: stage 1 Qualified Code(s): L89.151 - Pressure ulcer of sacral region, stage 1 Is this a current diagnosis for this admission?: Yes Plan: - frequent turns - wound care consult - Time Time Spent with patient: 15-24 minutes Medications reviewed and adjusted accordingly: Yes Anticipated Discharge Disposition: Home with Home Health Anticipated Discharge Timeframe: tbd
[2020-10-17] MEDS ORDERED: SODIUM CHLORIDE NASAL SPRAY 44 ML NASL PRN (15:02)
[2020-10-17] MEDS: SODIUM CHLORIDE NASAL SPRAY 44 ML NASL SCH ×2 (18:35→21:29)
[2020-10-17] MEDS: TAMSULOSIN HCL 0.4 MG CAP.SR.24H PO SCH (18:35)
[2020-10-17] MEDS: ATORVASTATIN CALCIUM 40 MG TABLET PO SCH (21:31)
[2020-10-18] MEDS: PANTOPRAZOLE SODIUM 40 MG TABLET.DR PO SCH (05:15)
[2020-10-18 06:13] LABS: ABSOLUTE LYMPHOCYTES (AUTO) 0.7 10^3/uL (0.5-4.7); ABSOLUTE MONOCYTES (AUTO) 0.5 10^3/uL (0.1-1.4); ABSOLUTE NEUT (AUTO) 5.4 10^3/uL (1.7-8.2); BASOPHILS % (AUTO) 0.5 % (0-2); EOSINOPHILS % (AUTO) 0.5 % (0-6); HEMATOCRIT 45.5 % (37.9-51.0); HEMOGLOBIN 14.8 g/dL (13.5-17.0); LYMPHOCYTES % (AUTO) 10.6 % (13-45); MEAN CORPUSCULAR HGB CONC 32.5 g/dL (32.0-36.0); MEAN CORPUSCULAR VOLUME 92 fl (80-97); MONOCYTES % (AUTO) 7.8 % (3-13); PLATELET COUNT 232 10^3/uL (150-450); RED BLOOD COUNT 4.93 10^6/uL (4.35-5.55); RED CELL DISTRIBUTION WIDTH 14.2 % (11.5-14.0); SEGMENTED NEUTROPHILS % (AUTO) 80.6 % (42-78); TOTAL CELLS COUNTED % (AUTO) 100 %; WHITE BLOOD COUNT 6.7 10^3/uL (4.0-10.5)
[2020-10-18 06:37] LABS: ALBUMIN 2.9 g/dL (3.5-5.0); ALKALINE PHOSPHATASE 62 U/L (38-126); ASPARTATE AMINO TRANSFERASE 56 U/L (17-59); BILIRUBIN,DIRECT 0.2 mg/dL (0.0-0.4); BILIRUBIN,TOTAL 0.7 mg/dL (0.2-1.3); BLOOD UREA NITROGEN 41 mg/dL (7-20); C-REACTIVE PROTEIN 28.1 mg/L (<10.0); CALCIUM 8.6 mg/dL (8.4-10.2); GLUCOSE 90 mg/dL (75-110); POTASSIUM 4.5 mmol/L (3.6-5.0); TOTAL PROTEIN 5.8 g/dL (6.3-8.2)
[2020-10-18 06:40] LABS: CARBON DIOXIDE 36 mmol/L (22-30); CHLORIDE 101 mmol/L (98-107)
[2020-10-18 07:15] LABS: ANION GAP 4 (5-19)
[2020-10-18] MEDS: INSULIN LISPRO 100 UNIT/ML 3 ML VIAL SUBCUT SCH ×4 (08:28→22:13)
[2020-10-18] MEDS: REMDESIVIR 100 MG in NORMAL SALINE 250 ML IV SCH (10:33)
[2020-10-18] MEDS: DEXAMETHASONE SOD PHOS INJ 10 MG/1 ML VIAL IV SCH (10:33)
[2020-10-18] MEDS: ENOXAPARIN SODIUM INJ 120 MG/0.8 ML DISP.SYRIN SUBCUT SCH (10:33)
[2020-10-18] MEDS: CHOLECALCIFEROL (D3) 1,000 UNIT (25 MCG) TABLET PO SCH (10:34)
[2020-10-18] MEDS: ASPIRIN 81 MG TABLET, ENT COATED PO SCH (10:34)
[2020-10-18] MEDS: SODIUM CHLORIDE NASAL SPRAY 44 ML NASL SCH ×4 (10:34→22:26)
[2020-10-18] MEDS: ASCORBIC ACID 500 MG TABLET PO SCH ×2 (10:34→17:53)
[2020-10-18] MEDS: ZINC SULFATE 220 MG CAPSULE PO SCH (10:35)
[2020-10-18] MEDS: ACETAMINOPHEN 325 MG TABLET PO PRN (13:22)
--- NOTE | 2020-10-18 16:25 | PDOC PROGRESS REPORT ---
Subjective Date:: 10/18/20 Subjective:: ARIAS ETIENNE is a 85 year old male with PMH of HTN, HLD, DM2, CHF who prese nts with lethargy. He is an extremely poor historian. I was unable to reach family and am waiting to receive a call back from his spouse. History obtained from ED physicians and medical records. He had been feeling very tired for the last at least 10 days. No fevers or chills. Denies change in taste/smell. He has had a minimal cough. He denies any nausea, vomiting, diarrhea. He denies any pain. Upon arrival, EMS found him to be hypoxic to 79% on RA. He was placed on NC. In the ED, he has required progressively increasing doses of oxygen and is now on a NRB. Day 7 Hospital stay 10/14/20 Patient was seen and examined at bedside. Currently on BIPAP 15/9 50% FIO2 saturating 92%. Still with exertional dyspnea. Remdesivir started today. He has completed Ivermectin dose. Day 8 Hospital stay 10/15/20 Patient was seen and examined at bedside. Currently on 6L of NC saturating 92%, breathing improved with some exertional dyspnea. Receiving remdesivir Day 9 Hospital stay 10/16/20 Patient was seen and examined at bedside. According to the nurse he was put back on Bipap last night due to desaturation. Currently at 50% FIO2 saturating 98%. He reports that his breathing is about the same, not worsening. Denies any chest pain. has dyspnea on exertion. D10 hospital stay 10/17/20 Patient was seen and examined at bedside. Complaining of back pain otherwise denies any worsening SOB. He is eager to go home and does not want to go to rehab, prefers home PT/OT. He is on D3 of 4 of remdesivir. D11 hospital stay 10/18/20 Patient was seen and examined at bedside. He is frustrated and stated several times that he wants to go home however he understands that he is still requiring a lot of oxygen support and is willing to stay. He again stated that he does not want to go to rehab and said he would rather that go to rehab. He is currently at 6L of NC, still has exertional dyspnea but no SOB at rest. Reason For Visit: COVID-19, PNEUMONIA Physical Exam Vital Signs: Temp Pulse Resp BP Pulse Ox 97.4 F 59 L 22 H 121/62 98 10/18/20 11:48 10/18/20 14:00 10/18/20 11:48 10/18/20 11:48 10/18/20 11:48 Intake & Output 10/17/20 10/18/20 10/19/20 06:59 06:59 06:59 Intake Total 490 1533 Output Total 350 800 Balance 140 733 Weight 117.8 kg 118.7 kg General appearance: PRESENT: cooperative, mild distress, obese Head exam: PRESENT: atraumatic, normocephalic Eye exam: PRESENT: EOMI, PERRLA Neck exam: PRESENT: full ROM Cardiovascular exam: PRESENT: RRR, +S1, +S2 Pulses: PRESENT: +2 pedal pulses bilateral GI/Abdominal exam: PRESENT: normal bowel sounds, soft. ABSENT: rebound, tender ness Extremities exam: PRESENT: full ROM Musculoskeletal exam: PRESENT: full ROM Neurological exam: PRESENT: alert, awake, oriented to person, oriented to place, oriented to time, oriented to situation Psychiatric exam: PRESENT: normal mood Skin exam: PRESENT: normal color Results Laboratory Results: 10/18/20 05:26 10/18/20 05:26 10/18/20 10/18/20 05:26 05:26 WBC 6.7 RBC 4.93 Hgb 14.8 Hct 45.5 MCV 92 MCH 30.0 MCHC 32.5 RDW 14.2 H Plt Count 232 Seg Neutrophils % 80.6 H Sodium 140.6 Potassium 4.5 Chloride 101 Carbon Dioxide 36 H Anion Gap 4 L BUN 41 H Creatinine 0.99 Est GFR ( Amer) > 60 Glucose 90 Calcium 8.6 Ferritin 747.00 H Total Bilirubin 0.7 AST 56 Alkaline Phosphatase 62 C-Reactive Protein 28.1 H Total Protein 5.8 L Albumin 2.9 L 10/08/20 10/08/20 10/08/20 11:36 11:36 18:10 Creatine Kinase 121 CK-MB (CK-2) 0.99 Troponin I 0.064 0.055 NT-Pro-B Natriuret Pep 4630 H Impressions: Venous Doppler Study 10/08/20 00:00 IMPRESSION: No DVT in the left lower extremity. Chest X-Ray 10/08/20 12:16 IMPRESSION: In the appropriate clinical setting, findings are consistent with multi lobar pneumonia. Assessment and Plan - Diagnosis (1) Acute respiratory failure with hypoxia and hypercapnia Is this a current diagnosis for this admission?: Yes Plan: - 2/2 COVID pneumonia - currently on 6L nasal canula saturating 92% still has exertional dyspnea - currently undergoing COVID pneumonia treatment with steroids and remdesivir D4 (2) Pneumonia due to COVID-19 virus Is this a current diagnosis for this admission?: Yes Plan: -Covid-19 test positive, BCx x2 with NGTD - antibiotics with azithromycin/ceftriaxone x5 days - dexamethasone 6 mg IV daily x10 days - Ivermectin 18 mg PO on days 1 and 3 - completed - on remdesivir D5 - D dimer decreased to 0.74 switched to 12 mg daily lovenox - continue Zinc, B-complex, Vit C, Vit D (3) JEFFRY (acute kidney injury) Is this a current diagnosis for this admission?: Yes Plan: - Crea 1.4>0.9 resolved (4) NSTEMI (non-ST elevated myocardial infarction) Is this a current diagnosis for this admission?: Yes Plan: - Trop peaked at 0.[address] elevation - likely 2/2 demand ischemia - continue aspirin and statin (5) Acute metabolic encephalopathy Is this a current diagnosis for this admission?: Yes Plan: - 2/2 delirium from acute illness (6) Physical deconditioning Is this a current diagnosis for this admission?: Yes Plan: - would need SNF but the patient refuses - home PT/OT (7) Pressure ulcer Qualifiers: Pressure injury location: sacral region Pressure injury stage: stage 1 Qualified Code(s): L89.151 - Pressure ulcer of sacral region, stage 1 Is this a current diagnosis for this admission?: Yes Plan: - frequent turns - wound care consult - Time Time Spent with patient: 25-34 minutes Medications reviewed and adjusted accordingly: Yes Anticipated Discharge Disposition: Home with Home Health Anticipated Discharge Timeframe: tbd - tbd
[2020-10-18] MEDS: TAMSULOSIN HCL 0.4 MG CAP.SR.24H PO SCH (17:53)
[2020-10-18 19:32] LABS: PARTIAL THROMBOPLASTIN TIME 35.1 SEC (23.5-35.8)
[2020-10-18 19:34] LABS: D-DIMER 0.67 ug/mL (0.00-0.50)
[2020-10-18] MEDS: ATORVASTATIN CALCIUM 40 MG TABLET PO SCH (22:13)
[2020-10-19] MEDS: PANTOPRAZOLE SODIUM 40 MG TABLET.DR PO SCH (06:56)
[2020-10-19 07:32] LABS: ABSOLUTE EOSINOPHILS # (AUTO) 0.1 10^3/uL (0.0-0.6); ABSOLUTE LYMPHOCYTES (AUTO) 0.8 10^3/uL (0.5-4.7); ABSOLUTE MONOCYTES (AUTO) 0.5 10^3/uL (0.1-1.4); ABSOLUTE NEUT (AUTO) 6.2 10^3/uL (1.7-8.2); BASOPHILS % (AUTO) 0.1 % (0-2); EOSINOPHILS % (AUTO) 0.7 % (0-6); HEMATOCRIT 43.8 % (37.9-51.0); HEMOGLOBIN 14.3 g/dL (13.5-17.0); LYMPHOCYTES % (AUTO) 10.9 % (13-45); MEAN CORPUSCULAR HEMOGLOBIN 29.7 pg (27.0-33.4); MEAN CORPUSCULAR HGB CONC 32.6 g/dL (32.0-36.0); MEAN CORPUSCULAR VOLUME 91 fl (80-97); MONOCYTES % (AUTO) 6.9 % (3-13); PLATELET COUNT 222 10^3/uL (150-450); RED CELL DISTRIBUTION WIDTH 14.4 % (11.5-14.0); SEGMENTED NEUTROPHILS % (AUTO) 81.4 % (42-78); TOTAL CELLS COUNTED % (AUTO) 100 %; WHITE BLOOD COUNT 7.6 10^3/uL (4.0-10.5)
[2020-10-19 07:49] LABS: ALBUMIN 2.7 g/dL (3.5-5.0); ALKALINE PHOSPHATASE 58 U/L (38-126); ASPARTATE AMINO TRANSFERASE 45 U/L (17-59); BILIRUBIN,DIRECT 0.1 mg/dL (0.0-0.4); BILIRUBIN,TOTAL 0.8 mg/dL (0.2-1.3); BLOOD UREA NITROGEN 37 mg/dL (7-20); C-REACTIVE PROTEIN 19.3 mg/L (<10.0); CALCIUM 8.5 mg/dL (8.4-10.2); GLUCOSE 77 mg/dL (75-110); POTASSIUM 4.3 mmol/L (3.6-5.0); TOTAL PROTEIN 5.6 g/dL (6.3-8.2)
[2020-10-19 07:53] LABS: CHLORIDE 102 mmol/L (98-107)
[2020-10-19] MEDS: SODIUM CHLORIDE NASAL SPRAY 44 ML NASL SCH ×4 (08:11→21:44)
[2020-10-19] MEDS: INSULIN LISPRO 100 UNIT/ML 3 ML VIAL SUBCUT SCH ×4 (08:11→21:21)
[2020-10-19 08:24] LABS: ANION GAP 1 (5-19); CARBON DIOXIDE 35 mmol/L (22-30)
[2020-10-19] MEDS: ENOXAPARIN SODIUM INJ 120 MG/0.8 ML DISP.SYRIN SUBCUT SCH (09:45)
[2020-10-19] MEDS: ASPIRIN 81 MG TABLET, ENT COATED PO SCH (09:45)
[2020-10-19] MEDS: ASCORBIC ACID 500 MG TABLET PO SCH ×2 (09:45→17:28)
[2020-10-19] MEDS: CHOLECALCIFEROL (D3) 1,000 UNIT (25 MCG) TABLET PO SCH (09:45)
[2020-10-19] MEDS: ZINC SULFATE 220 MG CAPSULE PO SCH (09:49)
--- NOTE | 2020-10-19 14:40 | PDOC PROGRESS REPORT ---
Subjective Date:: 10/19/20 Subjective:: ARIAS ETIENNE is a 85 year old male with PMH of HTN, HLD, DM2, CHF who prese nts with lethargy. He is an extremely poor historian. I was unable to reach family and am waiting to receive a call back from his spouse. History obtained from ED physicians and medical records. He had been feeling very tired for the last at least 10 days. No fevers or chills. Denies change in taste/smell. He has had a minimal cough. He denies any nausea, vomiting, diarrhea. He denies any pain. Upon arrival, EMS found him to be hypoxic to 79% on RA. He was placed on NC. In the ED, he has required progressively increasing doses of oxygen and is now on a NRB. Day 7 Hospital stay 10/14/20 Patient was seen and examined at bedside. Currently on BIPAP 15/9 50% FIO2 saturating 92%. Still with exertional dyspnea. Remdesivir started today. He has completed Ivermectin dose. Day 8 Hospital stay 10/15/20 Patient was seen and examined at bedside. Currently on 6L of NC saturating 92%, breathing improved with some exertional dyspnea. Receiving remdesivir Day 9 Hospital stay 10/16/20 Patient was seen and examined at bedside. According to the nurse he was put back on Bipap last night due to desaturation. Currently at 50% FIO2 saturating 98%. He reports that his breathing is about the same, not worsening. Denies any chest pain. has dyspnea on exertion. D10 hospital stay 10/17/20 Patient was seen and examined at bedside. Complaining of back pain otherwise denies any worsening SOB. He is eager to go home and does not want to go to rehab, prefers home PT/OT. He is on D3 of 4 of remdesivir. D11 hospital stay 10/18/20 Patient was seen and examined at bedside. He is frustrated and stated several times that he wants to go home however he understands that he is still requiring a lot of oxygen support and is willing to stay. He again stated that he does not want to go to rehab and said he would rather that go to rehab. He is currently at 6L of NC, still has exertional dyspnea but no SOB at rest. D12 hospital stay 10/19/20 Patient was seen and examined at bedside. Sitting on a chair on 6L Nc saturating 93%. Completed remdesivir dose today. Again expressed frustration about not being able to do things independently. He will probably go home with home O2 once we got him down at a more reasonable level and he is not requiring bipap. I am worried that due to his deconditioning he will not do well at home however the patient is very adamant to go home and not go to rehab. Reason For Visit: COVID-19, PNEUMONIA Physical Exam Vital Signs: Temp Pulse Resp BP Pulse Ox 98.3 F 56 L 18 124/68 88 L 10/19/20 12:03 10/19/20 12:03 10/19/20 12:03 10/19/20 12:03 10/19/20 12:03 Intake & Output 10/18/20 10/19/20 10/20/20 06:59 06:59 06:59 Intake Total 1533 1064 Output Total 800 850 Balance 733 214 Weight 118.7 kg 112.1 kg 112.1 kg General appearance: PRESENT: cooperative, mild distress, obese Head exam: PRESENT: atraumatic, normocephalic Eye exam: PRESENT: EOMI, PERRLA Mouth exam: PRESENT: moist Neck exam: PRESENT: full ROM Respiratory exam: PRESENT: clear to auscultation priti, symmetrical. ABSENT: tachypnea, wheezes Cardiovascular exam: PRESENT: RRR, +S1, +S2 Pulses: PRESENT: +2 pedal pulses bilateral GI/Abdominal exam: PRESENT: normal bowel sounds, soft. ABSENT: rebound, tenderness Extremities exam: PRESENT: full ROM Musculoskeletal exam: PRESENT: full ROM Neurological exam: PRESENT: alert, awake, oriented to person, oriented to place, oriented to time, oriented to situation Psychiatric exam: PRESENT: normal mood Skin exam: PRESENT: normal color Results Laboratory Results: 10/19/20 06:50 10/19/20 06:50 10/19/20 10/19/20 06:50 06:50 WBC 7.6 RBC 4.80 Hgb 14.3 Hct 43.8 MCV 91 MCH 29.7 MCHC 32.6 RDW 14.4 H Plt Count 222 Seg Neutrophils % 81.4 H Sodium 138.3 Potassium 4.3 Chloride 102 Carbon Dioxide 35 H Anion Gap 1 L BUN 37 H Creatinine 0.87 Est GFR ( Amer) > 60 Glucose 77 Calcium 8.5 Ferritin 691.00 H Total Bilirubin 0.8 AST 45 Alkaline Phosphatase 58 C-Reactive Protein 19.3 H Total Protein 5.6 L Albumin 2.7 L 10/08/20 10/08/20 10/08/20 11:36 11:36 18:10 Creatine Kinase 121 CK-MB (CK-2) 0.99 Troponin I 0.064 0.055 NT-Pro-B Natriuret Pep 4630 H Impressions: Venous Doppler Study 10/08/20 00:00 IMPRESSION: No DVT in the left lower extremity. Chest X-Ray 10/08/20 12:16 IMPRESSION: In the appropriate clinical setting, findings are consistent with multi lobar pneumonia. Assessment and Plan - Diagnosis (1) Acute respiratory failure with hypoxia and hypercapnia Is this a current diagnosis for this admission?: Yes Plan: - 2/2 COVID pneumonia - currently on 6L nasal canula saturating 92% still has exertional dyspnea - currently undergoing COVID pneumonia treatment with steroids, completed remdesivir (2) Pneumonia due to COVID-19 virus Is this a current diagnosis for this admission?: Yes Plan: -Covid-19 test positive, BCx x2 with NGTD - dexamethasone 6 mg IV daily x10 days - Ivermectin 18 mg PO on days 1 and 3 - completed - on remdesivir D5 - D dimer decreased to 0.74 switched to 12 mg daily lovenox - continue Zinc, B-complex, Vit C, Vit D (3) JEFFRY (acute kidney injury) Is this a current diagnosis for this admission?: Yes Plan: - Crea 1.4>0.9 resolved (4) NSTEMI (non-ST elevated myocardial infarction) Is this a current diagnosis for this admission?: Yes Plan: - Trop peaked at 0.[address] elevation - likely 2/2 demand ischemia - continue aspirin and statin (5) Acute metabolic encephalopathy Is this a current diagnosis for this admission?: Yes Plan: - 2/2 delirium from acute illness (6) Physical deconditioning Is this a current diagnosis for this admission?: Yes Plan: - would need SNF but the patient refuses - home PT/OT (7) Pressure ulcer Qualifiers: Pressure injury location: sacral region Pressure injury stage: stage 1 Qualified Code(s): L89.151 - Pressure ulcer of sacral region, stage 1 Is this a current diagnosis for this admission?: Yes Plan: - frequent turns - wound care consult - Time Time Spent with patient: 25-34 minutes Medications reviewed and adjusted accordingly: Yes Anticipated Discharge Disposition: Home with Home Health Anticipated Discharge Timeframe: tbd
[2020-10-19] MEDS: TAMSULOSIN HCL 0.4 MG CAP.SR.24H PO SCH (17:28)
[2020-10-19] MEDS: MELATONIN 5 MG TABLET PO SCH (21:45)
[2020-10-19] MEDS: ATORVASTATIN CALCIUM 40 MG TABLET PO SCH (21:45)
[2020-10-20] MEDS: PANTOPRAZOLE SODIUM 40 MG TABLET.DR PO SCH (05:20)
[2020-10-20 05:46] LABS: ABSOLUTE BASOPHILS # (AUTO) 0.1 10^3/uL (0.0-0.2); ABSOLUTE EOSINOPHILS # (AUTO) 0.1 10^3/uL (0.0-0.6); ABSOLUTE LYMPHOCYTES (AUTO) 0.9 10^3/uL (0.5-4.7); ABSOLUTE MONOCYTES (AUTO) 0.6 10^3/uL (0.1-1.4); ABSOLUTE NEUT (AUTO) 5.8 10^3/uL (1.7-8.2); BASOPHILS % (AUTO) 0.8 % (0-2); HEMATOCRIT 41.4 % (37.9-51.0); HEMOGLOBIN 13.6 g/dL (13.5-17.0); MEAN CORPUSCULAR HEMOGLOBIN 30.2 pg (27.0-33.4); MEAN CORPUSCULAR HGB CONC 32.9 g/dL (32.0-36.0); MEAN CORPUSCULAR VOLUME 92 fl (80-97); MONOCYTES % (AUTO) 8.5 % (3-13); PLATELET COUNT 242 10^3/uL (150-450); RED CELL DISTRIBUTION WIDTH 14.1 % (11.5-14.0); SEGMENTED NEUTROPHILS % (AUTO) 76.7 % (42-78); TOTAL CELLS COUNTED % (AUTO) 100 %; WHITE BLOOD COUNT 7.5 10^3/uL (4.0-10.5)
[2020-10-20 06:13] LABS: ALBUMIN 2.6 g/dL (3.5-5.0); ALKALINE PHOSPHATASE 58 U/L (38-126); ASPARTATE AMINO TRANSFERASE 38 U/L (17-59); BILIRUBIN,DIRECT 0.2 mg/dL (0.0-0.4); BILIRUBIN,TOTAL 0.9 mg/dL (0.2-1.3); BLOOD UREA NITROGEN 36 mg/dL (7-20); C-REACTIVE PROTEIN 21.3 mg/L (<10.0); CALCIUM 8.3 mg/dL (8.4-10.2); GLUCOSE 79 mg/dL (75-110); POTASSIUM 4.6 mmol/L (3.6-5.0); TOTAL PROTEIN 5.5 g/dL (6.3-8.2)
[2020-10-20 06:16] LABS: CARBON DIOXIDE 33 mmol/L (22-30); CHLORIDE 102 mmol/L (98-107)
[2020-10-20 06:32] LABS: ANION GAP 3 (5-19)
[2020-10-20] MEDS: SODIUM CHLORIDE NASAL SPRAY 44 ML NASL SCH ×4 (07:29→21:33)
[2020-10-20] MEDS: INSULIN LISPRO 100 UNIT/ML 3 ML VIAL SUBCUT SCH ×4 (07:29→21:27)
[2020-10-20] MEDS: ASPIRIN 81 MG TABLET, ENT COATED PO SCH (11:30)
[2020-10-20] MEDS: CHOLECALCIFEROL (D3) 1,000 UNIT (25 MCG) TABLET PO SCH (11:30)
[2020-10-20] MEDS: ASCORBIC ACID 500 MG TABLET PO SCH ×2 (11:30→17:13)
[2020-10-20] MEDS: ZINC SULFATE 220 MG CAPSULE PO SCH (11:30)
[2020-10-20] MEDS: ENOXAPARIN SODIUM INJ 120 MG/0.8 ML DISP.SYRIN SUBCUT SCH (11:31)
--- NOTE | 2020-10-20 14:43 | PDOC PROGRESS REPORT ---
Subjective Date:: 10/20/20 Subjective:: ARIAS ETIENNE is a 85 year old male with PMH of HTN, HLD, DM2, CHF who prese nts with lethargy. He is an extremely poor historian. I was unable to reach family and am waiting to receive a call back from his spouse. History obtained from ED physicians and medical records. He had been feeling very tired for the last at least 10 days. No fevers or chills. Denies change in taste/smell. He has had a minimal cough. He denies any nausea, vomiting, diarrhea. He denies any pain. Upon arrival, EMS found him to be hypoxic to 79% on RA. He was placed on NC. In the ED, he has required progressively increasing doses of oxygen and is now on a NRB. Day 7 Hospital stay 10/14/20 Patient was seen and examined at bedside. Currently on BIPAP 15/9 50% FIO2 saturating 92%. Still with exertional dyspnea. Remdesivir started today. He has completed Ivermectin dose. Day 8 Hospital stay 10/15/20 Patient was seen and examined at bedside. Currently on 6L of NC saturating 92%, breathing improved with some exertional dyspnea. Receiving remdesivir Day 9 Hospital stay 10/16/20 Patient was seen and examined at bedside. According to the nurse he was put back on Bipap last night due to desaturation. Currently at 50% FIO2 saturating 98%. He reports that his breathing is about the same, not worsening. Denies any chest pain. has dyspnea on exertion. D10 hospital stay 10/17/20 Patient was seen and examined at bedside. Complaining of back pain otherwise denies any worsening SOB. He is eager to go home and does not want to go to rehab, prefers home PT/OT. He is on D3 of 4 of remdesivir. D11 hospital stay 10/18/20 Patient was seen and examined at bedside. He is frustrated and stated several times that he wants to go home however he understands that he is still requiring a lot of oxygen support and is willing to stay. He again stated that he does not want to go to rehab and said he would rather that go to rehab. He is currently at 6L of NC, still has exertional dyspnea but no SOB at rest. D12 hospital stay 10/19/20 Patient was seen and examined at bedside. Sitting on a chair on 6L Nc saturating 93%. Completed remdesivir dose today. Again expressed frustration about not being able to do things independently. He will probably go home with home O2 once we got him down at a more reasonable level and he is not requiring bipap. I am worried that due to his deconditioning he will not do well at home however the patient is very adamant to go home and not go to rehab. D13 hospital stay 10/20/20 Patient was seen and examined at bedside. He requires bipap only at night. Currently at 8l Non rebreather. He has changed his mind about rehab and is now willing to go to rehab. Consulted discharge planning. Completed remdesivir, ivermecti. He can ambulate from bed to chair with minimal assistance but gets very short of breath. Reason For Visit: COVID-19, PNEUMONIA Physical Exam Vital Signs: Temp Pulse Resp BP Pulse Ox 97.8 F 66 29 H 117/62 96 10/20/20 12:30 10/20/20 12:30 10/20/20 12:30 10/20/20 12:30 10/20/20 12:30 Intake & Output 10/19/20 10/20/20 10/21/20 06:59 06:59 06:59 Intake Total 1064 1000 Output Total 850 850 Balance 214 150 Weight 112.1 kg 110.8 kg General appearance: PRESENT: cooperative, mild distress Head exam: PRESENT: atraumatic, normocephalic Eye exam: PRESENT: EOMI, PERRLA Mouth exam: PRESENT: moist Neck exam: PRESENT: full ROM Respiratory exam: PRESENT: clear to auscultation priti, symmetrical, unlabored Cardiovascular exam: PRESENT: RRR, +S1, +S2 Pulses: PRESENT: +2 pedal pulses bilateral GI/Abdominal exam: PRESENT: normal bowel sounds, soft. ABSENT: rebound, tenderness Extremities exam: PRESENT: full ROM Musculoskeletal exam: PRESENT: full ROM Neurological exam: PRESENT: alert, awake, oriented to person, oriented to place, oriented to time, oriented to situation Psychiatric exam: PRESENT: normal mood Skin exam: PRESENT: normal color Results Laboratory Results: 10/20/20 05:06 10/20/20 05:06 10/20/20 10/20/20 05:06 05:06 WBC 7.5 RBC 4.50 Hgb 13.6 Hct 41.4 MCV 92 MCH 30.2 MCHC 32.9 RDW 14.1 H Plt Count 242 Seg Neutrophils % 76.7 Sodium 138.1 Potassium 4.6 Chloride 102 Carbon Dioxide 33 H Anion Gap 3 L BUN 36 H Creatinine 1.07 Est GFR ( Amer) > 60 Glucose 79 Calcium 8.3 L Ferritin 651.00 H Total Bilirubin 0.9 AST 38 Alkaline Phosphatase 58 C-Reactive Protein 21.3 H Total Protein 5.5 L Albumin 2.6 L 10/08/20 10/08/20 10/08/20 11:36 11:36 18:10 Creatine Kinase 121 CK-MB (CK-2) 0.99 Troponin I 0.064 0.055 NT-Pro-B Natriuret Pep 4630 H Impressions: Venous Doppler Study 10/08/20 00:00 IMPRESSION: No DVT in the left lower extremity. Chest X-Ray 10/08/20 12:16 IMPRESSION: In the appropriate clinical setting, findings are consistent with multi lobar pneumonia. Assessment and Plan - Diagnosis (1) Acute respiratory failure with hypoxia and hypercapnia Is this a current diagnosis for this admission?: Yes Plan: - 2/2 COVID pneumonia - currently on 6L nasal canula saturating 92% still has exertional dyspnea -completed remdesivir, ivermectin, steroids and abx - requires bipap at night but otherwise on 6-8L of NC (2) Pneumonia due to COVID-19 virus Is this a current diagnosis for this admission?: Yes Plan: -Covid-19 test positive, BCx x2 with NGTD - dexamethasone 6 mg IV daily x10 days - Ivermectin 18 mg PO on days 1 and 3 - completed - on remdesivir D5 - D dimer decreased to 0.74 switched to 12 mg daily lovenox - continue Zinc, B-complex, Vit C, Vit D (3) JEFFRY (acute kidney injury) Is this a current diagnosis for this admission?: Yes Plan: - Crea 1.4>0.9 resolved (4) NSTEMI (non-ST elevated myocardial infarction) Is this a current diagnosis for this admission?: Yes Plan: - Trop peaked at 0.[address] elevation - likely 2/2 demand ischemia - continue aspirin and statin (5) Acute metabolic encephalopathy Is this a current diagnosis for this admission?: Yes Plan: - 2/2 delirium from acute illness (6) Physical deconditioning Is this a current diagnosis for this admission?: Yes Plan: - after days of refusing rehab, the patient has finally agreed to go to rehab - discharge planning consulted (7) Pressure ulcer Qualifiers: Pressure injury location: sacral region Pressure injury stage: stage 1 Qualified Code(s): L89.151 - Pressure ulcer of sacral region, stage 1 Is this a current diagnosis for this admission?: Yes Plan: - frequent turns - wound care consult - Time Time Spent with patient: 25-34 minutes Medications reviewed and adjusted accordingly: Yes Anticipated Discharge Disposition: Residential Facility Anticipated Discharge Timeframe: within 48 hours
[2020-10-20] MEDS: TAMSULOSIN HCL 0.4 MG CAP.SR.24H PO SCH (17:13)
[2020-10-20 17:38] LABS: PARTIAL THROMBOPLASTIN TIME 37.6 SEC (23.5-35.8)
[2020-10-20 17:40] LABS: D-DIMER 0.75 ug/mL (0.00-0.50)
[2020-10-20] MEDS: GUAIFENESIN/CODEINE PHOS 100-10 MG/ 5 ML UDC PO PRN (21:30)
[2020-10-20] MEDS: ATORVASTATIN CALCIUM 40 MG TABLET PO SCH (21:30)
[2020-10-20] MEDS: MELATONIN 5 MG TABLET PO SCH (21:30)
[2020-10-21] MEDS: PANTOPRAZOLE SODIUM 40 MG TABLET.DR PO SCH (05:29)
[2020-10-21 06:29] LABS: ABSOLUTE EOSINOPHILS # (AUTO) 0.1 10^3/uL (0.0-0.6); ABSOLUTE LYMPHOCYTES (AUTO) 0.8 10^3/uL (0.5-4.7); ABSOLUTE MONOCYTES (AUTO) 0.7 10^3/uL (0.1-1.4); ABSOLUTE NEUT (AUTO) 6.6 10^3/uL (1.7-8.2); BASOPHILS % (AUTO) 0.4 % (0-2); EOSINOPHILS % (AUTO) 1.2 % (0-6); HEMATOCRIT 43.1 % (37.9-51.0); HEMOGLOBIN 14.3 g/dL (13.5-17.0); LYMPHOCYTES % (AUTO) 9.6 % (13-45); MEAN CORPUSCULAR HEMOGLOBIN 30.6 pg (27.0-33.4); MEAN CORPUSCULAR HGB CONC 33.2 g/dL (32.0-36.0); MEAN CORPUSCULAR VOLUME 92 fl (80-97); MONOCYTES % (AUTO) 8.2 % (3-13); PLATELET COUNT 259 10^3/uL (150-450); RED BLOOD COUNT 4.68 10^6/uL (4.35-5.55); RED CELL DISTRIBUTION WIDTH 14.5 % (11.5-14.0); SEGMENTED NEUTROPHILS % (AUTO) 80.6 % (42-78); TOTAL CELLS COUNTED % (AUTO) 100 %; WHITE BLOOD COUNT 8.2 10^3/uL (4.0-10.5)
[2020-10-21 07:04] LABS: ALKALINE PHOSPHATASE 68 U/L (38-126); ASPARTATE AMINO TRANSFERASE 32 U/L (17-59); BILIRUBIN,DIRECT 0.2 mg/dL (0.0-0.4); BILIRUBIN,TOTAL 1.1 mg/dL (0.2-1.3); BLOOD UREA NITROGEN 32 mg/dL (7-20); C-REACTIVE PROTEIN 51.9 mg/L (<10.0); CALCIUM 8.6 mg/dL (8.4-10.2); GLUCOSE 98 mg/dL (75-110); POTASSIUM 4.5 mmol/L (3.6-5.0); TOTAL PROTEIN 6.2 g/dL (6.3-8.2)
[2020-10-21 07:07] LABS: ANION GAP 5 (5-19); CARBON DIOXIDE 36 mmol/L (22-30); CHLORIDE 99 mmol/L (98-107)
[2020-10-21] MEDS: INSULIN LISPRO 100 UNIT/ML 3 ML VIAL SUBCUT SCH ×4 (08:27→22:25)
[2020-10-21] MEDS: SODIUM CHLORIDE NASAL SPRAY 44 ML NASL SCH ×4 (08:28→22:30)
[2020-10-21] MEDS: ASCORBIC ACID 500 MG TABLET PO SCH ×2 (10:41→17:00)
[2020-10-21] MEDS: CHOLECALCIFEROL (D3) 1,000 UNIT (25 MCG) TABLET PO SCH (10:42)
[2020-10-21] MEDS: ENOXAPARIN SODIUM INJ 120 MG/0.8 ML DISP.SYRIN SUBCUT SCH (10:42)
[2020-10-21] MEDS: ASPIRIN 81 MG TABLET, ENT COATED PO SCH (10:42)
[2020-10-21] MEDS: ZINC SULFATE 220 MG CAPSULE PO SCH (10:42)
--- NOTE | 2020-10-21 16:25 | PDOC PROGRESS REPORT ---
Subjective Date:: 10/21/20 Subjective:: ARIAS ETIENNE is a 85 year old male with PMH of HTN, HLD, DM2, CHF who prese nts with lethargy. He is an extremely poor historian. I was unable to reach family and am waiting to receive a call back from his spouse. History obtained from ED physicians and medical records. He had been feeling very tired for the last at least 10 days. No fevers or chills. Denies change in taste/smell. He has had a minimal cough. He denies any nausea, vomiting, diarrhea. He denies any pain. Upon arrival, EMS found him to be hypoxic to 79% on RA. He was placed on NC. In the ED, he has required progressively increasing doses of oxygen and is now on a NRB. Day 7 Hospital stay 10/14/20 Patient was seen and examined at bedside. Currently on BIPAP 15/9 50% FIO2 saturating 92%. Still with exertional dyspnea. Remdesivir started today. He has completed Ivermectin dose. Day 8 Hospital stay 10/15/20 Patient was seen and examined at bedside. Currently on 6L of NC saturating 92%, breathing improved with some exertional dyspnea. Receiving remdesivir Day 9 Hospital stay 10/16/20 Patient was seen and examined at bedside. According to the nurse he was put back on Bipap last night due to desaturation. Currently at 50% FIO2 saturating 98%. He reports that his breathing is about the same, not worsening. Denies any chest pain. has dyspnea on exertion. D10 hospital stay 10/17/20 Patient was seen and examined at bedside. Complaining of back pain otherwise denies any worsening SOB. He is eager to go home and does not want to go to rehab, prefers home PT/OT. He is on D3 of 4 of remdesivir. D11 hospital stay 10/18/20 Patient was seen and examined at bedside. He is frustrated and stated several times that he wants to go home however he understands that he is still requiring a lot of oxygen support and is willing to stay. He again stated that he does not want to go to rehab and said he would rather that go to rehab. He is currently at 6L of NC, still has exertional dyspnea but no SOB at rest. D12 hospital stay 10/19/20 Patient was seen and examined at bedside. Sitting on a chair on 6L Nc saturating 93%. Completed remdesivir dose today. Again expressed frustration about not being able to do things independently. He will probably go home with home O2 once we got him down at a more reasonable level and he is not requiring bipap. I am worried that due to his deconditioning he will not do well at home however the patient is very adamant to go home and not go to rehab. D13 hospital stay 10/20/20 Patient was seen and examined at bedside. He requires bipap only at night. Currently at 8l Non rebreather. He has changed his mind about rehab and is now willing to go to rehab. Consulted discharge planning. Completed remdesivir, ivermecti. He can ambulate from bed to chair with minimal assistance but gets very short of breath. D14 hospital stay 10/21/20 Patient was seen and examined at bedside. He stated he is ready for rehab and seems to be stronger today. he did not need the bipap last night according to his nurse. Currently at 6L nasal cannula sats 93%. Discharge planning looking for a rehab place for him. Reason For Visit: COVID-19, PNEUMONIA Physical Exam Vital Signs: Temp Pulse Resp BP Pulse Ox 98.2 F 68 13 112/65 97 10/21/20 11:42 10/21/20 14:00 10/21/20 11:42 10/21/20 11:42 10/21/20 11:42 Intake & Output 10/20/20 10/21/20 10/22/20 06:59 06:59 06:59 Intake Total 1000 1080 Output Total 850 410 Balance 150 670 Weight 110.8 kg 114.4 kg General appearance: PRESENT: cooperative, mild distress, obese Head exam: PRESENT: atraumatic, normocephalic Eye exam: PRESENT: EOMI, PERRLA Mouth exam: PRESENT: moist Neck exam: PRESENT: full ROM Respiratory exam: PRESENT: crackles, symmetrical, tachypnea Cardiovascular exam: PRESENT: RRR, +S1, +S2 Pulses: PRESENT: +2 pedal pulses bilateral GI/Abdominal exam: PRESENT: normal bowel sounds, soft. ABSENT: rebound, tenderness Extremities exam: PRESENT: full ROM Musculoskeletal exam: PRESENT: full ROM Neurological exam: PRESENT: alert, awake, oriented to person, oriented to place, oriented to time, oriented to situation Psychiatric exam: PRESENT: normal mood Skin exam: PRESENT: normal color Results Laboratory Results: 10/21/20 05:52 10/21/20 05:52 10/21/20 10/21/20 05:52 05:52 WBC 8.2 RBC 4.68 Hgb 14.3 Hct 43.1 MCV 92 MCH 30.6 MCHC 33.2 RDW 14.5 H Plt Count 259 Seg Neutrophils % 80.6 H Sodium 139.5 Potassium 4.5 Chloride 99 Carbon Dioxide 36 H Anion Gap 5 BUN 32 H Creatinine 1.11 Est GFR ( Amer) > 60 Glucose 98 Calcium 8.6 Ferritin 768.00 H Total Bilirubin 1.1 AST 32 Alkaline Phosphatase 68 C-Reactive Protein 51.9 H Total Protein 6.2 L Albumin 3.0 L 10/08/20 10/08/20 10/08/20 11:36 11:36 18:10 Creatine Kinase 121 CK-MB (CK-2) 0.99 Troponin I 0.064 0.055 NT-Pro-B Natriuret Pep 4630 H Impressions: Venous Doppler Study 10/08/20 00:00 IMPRESSION: No DVT in the left lower extremity. Chest X-Ray 10/08/20 12:16 IMPRESSION: In the appropriate clinical setting, findings are consistent with multi lobar pneumonia. Assessment and Plan - Diagnosis (1) Acute respiratory failure with hypoxia and hypercapnia Is this a current diagnosis for this admission?: Yes Plan: - 2/2 COVID pneumonia - currently on 6L nasal canula saturating 92% still has exertional dyspnea -completed remdesivir, ivermectin, steroids and abx - requires bipap at night but otherwise on 6-8L of NC (2) Pneumonia due to COVID-19 virus Is this a current diagnosis for this admission?: Yes Plan: -Covid-19 test positive, BCx x2 with NGTD - dexamethasone 6 mg IV daily x10 days - Ivermectin 18 mg PO on days 1 and 3 - completed - completed remdesivir - D dimer decreased to 0.74 switched to 12 mg daily lovenox - continue Zinc, B-complex, Vit C, Vit D (3) JEFFRY (acute kidney injury) Is this a current diagnosis for this admission?: Yes Plan: - Crea 1.4>0.9 resolved (4) NSTEMI (non-ST elevated myocardial infarction) Is this a current diagnosis for this admission?: Yes Plan: - Trop peaked at 0.[address] elevation - likely 2/2 demand ischemia - continue aspirin and statin (5) Acute metabolic encephalopathy Is this a current diagnosis for this admission?: Yes Plan: - 2/2 delirium from acute illness (6) Physical deconditioning Is this a current diagnosis for this admission?: Yes Plan: - after days of refusing rehab, the patient has finally agreed to go to rehab - discharge planning consulted (7) Pressure ulcer Qualifiers: Pressure injury location: sacral region Pressure injury stage: stage 1 Qualified Code(s): L89.151 - Pressure ulcer of sacral region, stage 1 Is this a current diagnosis for this admission?: Yes Plan: - frequent turns - wound care consult - Time Time Spent with patient: 25-34 minutes Medications reviewed and adjusted accordingly: Yes Anticipated Discharge Disposition: [facility] Anticipated Discharge Timeframe: tbd
[2020-10-21] MEDS: TAMSULOSIN HCL 0.4 MG CAP.SR.24H PO SCH (17:00)
[2020-10-21] MEDS: ATORVASTATIN CALCIUM 40 MG TABLET PO SCH (22:29)
[2020-10-21] MEDS: MELATONIN 5 MG TABLET PO SCH (22:29)
[2020-10-22] MEDS: PANTOPRAZOLE SODIUM 40 MG TABLET.DR PO SCH (05:53)
[2020-10-22 07:37] LABS: ALBUMIN 2.7 g/dL (3.5-5.0); ALKALINE PHOSPHATASE 64 U/L (38-126); ASPARTATE AMINO TRANSFERASE 25 U/L (17-59); BILIRUBIN,DIRECT 0.3 mg/dL (0.0-0.4); BILIRUBIN,TOTAL 1.1 mg/dL (0.2-1.3); BLOOD UREA NITROGEN 28 mg/dL (7-20); C-REACTIVE PROTEIN 63.5 mg/L (<10.0); CALCIUM 8.3 mg/dL (8.4-10.2); CARBON DIOXIDE 34 mmol/L (22-30); CHLORIDE 100 mmol/L (98-107); GLUCOSE 93 mg/dL (75-110); POTASSIUM 4.1 mmol/L (3.6-5.0); TOTAL PROTEIN 5.5 g/dL (6.3-8.2)
[2020-10-22 07:41] LABS: ABSOLUTE EOSINOPHILS # (AUTO) 0.1 10^3/uL (0.0-0.6); ABSOLUTE LYMPHOCYTES (AUTO) 0.8 10^3/uL (0.5-4.7); ABSOLUTE MONOCYTES (AUTO) 0.9 10^3/uL (0.1-1.4); ABSOLUTE NEUT (AUTO) 5.9 10^3/uL (1.7-8.2); BASOPHILS % (AUTO) 0.5 % (0-2); EOSINOPHILS % (AUTO) 1.1 % (0-6); HEMOGLOBIN 13.3 g/dL (13.5-17.0); LYMPHOCYTES % (AUTO) 10.5 % (13-45); MEAN CORPUSCULAR HGB CONC 34.1 g/dL (32.0-36.0); MEAN CORPUSCULAR VOLUME 91 fl (80-97); MONOCYTES % (AUTO) 11.5 % (3-13); PLATELET COUNT 219 10^3/uL (150-450); RED BLOOD COUNT 4.29 10^6/uL (4.35-5.55); RED CELL DISTRIBUTION WIDTH 14.5 % (11.5-14.0); SEGMENTED NEUTROPHILS % (AUTO) 76.4 % (42-78); TOTAL CELLS COUNTED % (AUTO) 100 %; WHITE BLOOD COUNT 7.7 10^3/uL (4.0-10.5)
[2020-10-22] MEDS: INSULIN LISPRO 100 UNIT/ML 3 ML VIAL SUBCUT SCH ×4 (08:00→21:14)
[2020-10-22 08:06] LABS: ANION GAP 4 (5-19)
[2020-10-22] MEDS: SODIUM CHLORIDE NASAL SPRAY 44 ML NASL SCH ×4 (08:56→21:21)
[2020-10-22] MEDS: ENOXAPARIN SODIUM INJ 120 MG/0.8 ML DISP.SYRIN SUBCUT SCH (10:16)
[2020-10-22] MEDS: ASCORBIC ACID 500 MG TABLET PO SCH ×2 (10:16→17:52)
[2020-10-22] MEDS: CHOLECALCIFEROL (D3) 1,000 UNIT (25 MCG) TABLET PO SCH (10:16)
[2020-10-22] MEDS: ZINC SULFATE 220 MG CAPSULE PO SCH (10:16)
[2020-10-22] MEDS: ASPIRIN 81 MG TABLET, ENT COATED PO SCH (10:16)
--- NOTE | 2020-10-22 17:13 | PDOC PROGRESS REPORT ---
Subjective Date:: 10/22/20 Subjective:: ARIAS ETIENNE is a 85 year old male with PMH of HTN, HLD, DM2, CHF who prese nts with lethargy. He is an extremely poor historian. I was unable to reach family and am waiting to receive a call back from his spouse. History obtained from ED physicians and medical records. He had been feeling very tired for the last at least 10 days. No fevers or chills. Denies change in taste/smell. He has had a minimal cough. He denies any nausea, vomiting, diarrhea. He denies any pain. Upon arrival, EMS found him to be hypoxic to 79% on RA. He was placed on NC. In the ED, he has required progressively increasing doses of oxygen and is now on a NRB. Day 7 Hospital stay 10/14/20 Patient was seen and examined at bedside. Currently on BIPAP 15/9 50% FIO2 saturating 92%. Still with exertional dyspnea. Remdesivir started today. He has completed Ivermectin dose. Day 8 Hospital stay 10/15/20 Patient was seen and examined at bedside. Currently on 6L of NC saturating 92%, breathing improved with some exertional dyspnea. Receiving remdesivir Day 9 Hospital stay 10/16/20 Patient was seen and examined at bedside. According to the nurse he was put back on Bipap last night due to desaturation. Currently at 50% FIO2 saturating 98%. He reports that his breathing is about the same, not worsening. Denies any chest pain. has dyspnea on exertion. D10 hospital stay 10/17/20 Patient was seen and examined at bedside. Complaining of back pain otherwise denies any worsening SOB. He is eager to go home and does not want to go to rehab, prefers home PT/OT. He is on D3 of 4 of remdesivir. D11 hospital stay 10/18/20 Patient was seen and examined at bedside. He is frustrated and stated several times that he wants to go home however he understands that he is still requiring a lot of oxygen support and is willing to stay. He again stated that he does not want to go to rehab and said he would rather that go to rehab. He is currently at 6L of NC, still has exertional dyspnea but no SOB at rest. D12 hospital stay 10/19/20 Patient was seen and examined at bedside. Sitting on a chair on 6L Nc saturating 93%. Completed remdesivir dose today. Again expressed frustration about not being able to do things independently. He will probably go home with home O2 once we got him down at a more reasonable level and he is not requiring bipap. I am worried that due to his deconditioning he will not do well at home however the patient is very adamant to go home and not go to rehab. D13 hospital stay 10/20/20 Patient was seen and examined at bedside. He requires bipap only at night. Currently at 8l Non rebreather. He has changed his mind about rehab and is now willing to go to rehab. Consulted discharge planning. Completed remdesivir, ivermecti. He can ambulate from bed to chair with minimal assistance but gets very short of breath. D14 hospital stay 10/21/20 Patient was seen and examined at bedside. He stated he is ready for rehab and seems to be stronger today. he did not need the bipap last night according to his nurse. Currently at 6L nasal cannula sats 93%. Discharge planning looking for a rehab place for him. D15 hospital stay. Patient was seen and examined at bedside. Sitting on a chair at 5L nasal cannula saturating 95%. No new complains. Awaiting placement. He is otherwise ready to go, symptom onset has been 3 weeks so at this point he does not need to be in isolation. I have asked him several times in the past if he wants me to update anyone of his family regarding his status and he had repeatedly said no. Reason For Visit: COVID-19, PNEUMONIA Physical Exam Vital Signs: Temp Pulse Resp BP Pulse Ox 97.5 F 63 22 H 110/64 95 10/22/20 11:49 10/22/20 14:00 10/22/20 11:49 10/22/20 11:49 10/22/20 11:49 Intake & Output 10/21/20 10/22/20 10/23/20 06:59 06:59 06:59 Intake Total 1080 1130 Output Total 410 400 Balance 670 730 Weight 114.4 kg 118.5 kg General appearance: PRESENT: cooperative, mild distress, obese Head exam: PRESENT: atraumatic, normocephalic Eye exam: PRESENT: EOMI, PERRLA Mouth exam: PRESENT: moist Neck exam: PRESENT: full ROM Respiratory exam: PRESENT: rales, symmetrical, unlabored Cardiovascular exam: PRESENT: RRR, +S1, +S2 GI/Abdominal exam: PRESENT: normal bowel sounds, soft. ABSENT: rebound, tender ness Extremities exam: PRESENT: full ROM Musculoskeletal exam: PRESENT: full ROM Neurological exam: PRESENT: alert, awake, oriented to person, oriented to place, oriented to time, oriented to situation Psychiatric exam: PRESENT: depressed Skin exam: PRESENT: normal color Results Laboratory Results: 10/22/20 06:16 10/22/20 06:16 10/22/20 10/22/20 06:16 06:16 WBC 7.7 RBC 4.29 L Hgb 13.3 L Hct 39.0 MCV 91 MCH 31.0 MCHC 34.1 RDW 14.5 H Plt Count 219 Seg Neutrophils % 76.4 Sodium 137.8 Potassium 4.1 Chloride 100 Carbon Dioxide 34 H Anion Gap 4 L BUN 28 H Creatinine 0.99 Est GFR ( Amer) > 60 Glucose 93 Calcium 8.3 L Ferritin 828.00 H Total Bilirubin 1.1 AST 25 Alkaline Phosphatase 64 C-Reactive Protein 63.5 H Total Protein 5.5 L Albumin 2.7 L 10/08/20 10/08/20 10/08/20 11:36 11:36 18:10 Creatine Kinase 121 CK-MB (CK-2) 0.99 Troponin I 0.064 0.055 NT-Pro-B Natriuret Pep 4630 H Impressions: Venous Doppler Study 10/08/20 00:00 IMPRESSION: No DVT in the left lower extremity. Chest X-Ray 10/08/20 12:16 IMPRESSION: In the appropriate clinical setting, findings are consistent with multi lobar pneumonia. Assessment and Plan - Diagnosis (1) Acute respiratory failure with hypoxia and hypercapnia Is this a current diagnosis for this admission?: Yes Plan: - 2/2 COVID pneumonia - currently on 6L nasal canula saturating 92% still has exertional dyspnea -completed remdesivir, ivermectin, steroids and abx - requires bipap at night but otherwise on 5L of NC (2) Pneumonia due to COVID-19 virus Is this a current diagnosis for this admission?: Yes Plan: -Covid-19 test positive, BCx x2 with NGTD - dexamethasone 6 mg IV daily x10 days - completed - Ivermectin 18 mg PO on days 1 and 3 - completed - completed remdesivir - D dimer decreased to 0.74 [id number] mg daily lovenox - continue Zinc, B-complex, Vit C, Vit D (3) JEFFRY (acute kidney injury) Is this a current diagnosis for this admission?: Yes Plan: - Crea 1.4>0.9 resolved (4) NSTEMI (non-ST elevated myocardial infarction) Is this a current diagnosis for this admission?: Yes Plan: - Trop peaked at 0.[address] elevation - likely 2/2 demand ischemia - continue aspirin and statin (5) Acute metabolic encephalopathy Is this a current diagnosis for this admission?: Yes Plan: - 2/2 delirium from acute illness - resolved (6) Physical deconditioning Is this a current diagnosis for this admission?: Yes Plan: - after days of refusing rehab, the patient has finally agreed to go to rehab - discharge planning consulted (7) Pressure ulcer Qualifiers: Pressure injury location: sacral region Pressure injury stage: stage 1 Qualified Code(s): L89.151 - Pressure ulcer of sacral region, stage 1 Is this a current diagnosis for this admission?: Yes Plan: - frequent turns - wound care consult - Time Time Spent with patient: 25-34 minutes Medications reviewed and adjusted accordingly: Yes Anticipated [facility] Anticipated Discharge Timeframe: within 24 hours
--- NOTE | 2020-10-22 17:39 | PDOC DISCHARGE SUMMARY ---
Impression - Admit/DC Date/PCP Admission Date/Primary Care Provider: 10/08/20 15:28 JANELL BRITT NP Discharge Date: 10/23/20 - Discharge Diagnosis (1) Acute respiratory failure with hypoxia and hypercapnia Is this a current diagnosis for this admission?: Yes (2) Pneumonia due to COVID-19 virus Is this a current diagnosis for this admission?: Yes (3) JEFFRY (acute kidney injury) Is this a current diagnosis for this admission?: Yes (4) NSTEMI (non-ST elevated myocardial infarction) Is this a current diagnosis for this admission?: Yes (5) Acute metabolic encephalopathy Is this a current diagnosis for this admission?: Yes (6) Physical deconditioning Is this a current diagnosis for this admission?: Yes (7) Pressure ulcer Is this a current diagnosis for this admission?: Yes - Assessment Summary: (1) Acute respiratory failure with hypoxia and hypercapnia Is this a current diagnosis for this admission?: Yes Plan: - 2/2 COVID pneumonia - currently on 6L nasal canula saturating 92% still has exertional dyspnea -completed remdesivir, ivermectin, steroids and abx - requires bipap at night but otherwise on 5L of NC (2) Pneumonia due to COVID-19 virus Is this a current diagnosis for this admission?: Yes Plan: -Covid-19 test positive, BCx x2 with NGTD - dexamethasone 6 mg IV daily x10 days - completed - Ivermectin 18 mg PO on days 1 and 3 - completed - completed remdesivir - D dimer decreased to 0.74 [id number] mg daily lovenox - continue Zinc, B-complex, Vit C, Vit D (3) JEFFRY (acute kidney injury) Is this a current diagnosis for this admission?: Yes Plan: - Crea 1.4>0.9 resolved (4) NSTEMI (non-ST elevated myocardial infarction) Is this a current diagnosis for this admission?: Yes Plan: - Trop peaked at 0.[address] elevation - likely 2/2 demand ischemia - continue aspirin and statin (5) Acute metabolic encephalopathy Is this a current diagnosis for this admission?: Yes Plan: - 2/2 delirium from acute illness - resolved (6) Physical deconditioning Is this a current diagnosis for this admission?: Yes Plan: - after days of refusing rehab, the patient has finally agreed to go to rehab - discharge planning consulted (7) Pressure ulcer Qualifiers: Pressure injury location: sacral region Pressure injury stage: stage 1 Qualified Code(s): L89.151 - Pressure ulcer of sacral region, stage 1 Is this a current diagnosis for this admission?: Yes Plan: - frequent turns - wound care consult - Additional Information Resuscitation Status: Do Not Resuscitate Referrals: JANELL BRITT, [facility] [Primary Care Provider] - Follow up as needed Home Medications: Aspirin [Ecotrin 81 mg EC Tablet] 81 mg PO DAILY 10/08/20 Potassium Chloride [Klor-Con M20] 20 meq PO DAILY 10/08/20 Rosuvastatin Calcium [Crestor] 20 mg PO HSP PRN 10/08/20 Sitagliptin Phosphate [Januvia 50 mg Tablet] 50 mg PO DAILY 10/08/20 History of Present Illiness History of Present Illness: ARIAS ETIENNE is a 85 year old male, with PMH of HTN, HLD, DM2, CHF who presents with lethargy. He is an extremely poor historian. I was unable to reach family and am waiting to receive a call back from his spouse. History obtained from ED physicians and medical records. He had been feeling very tired for the last at least 10 days. No fevers or chills. Denies change in taste/smell. He has had a minimal cough. He denies any nausea, vomiting, diarrhea. He denies any pain. Upon arrival, EMS found him to be hypoxic to 79% on RA. He was placed on NC. In the ED, he has required progressively increasing doses of oxygen and is now on a NRB. Hospital Course Hospital Course: Day 7 Hospital stay 10/14/20 Patient was seen and examined at bedside. Currently on BIPAP 15/ 50% FIO2 saturating 92%. Still with exertional dyspnea. Remdesivir started today. He has completed Ivermectin dose. Day 8 Hospital stay 10/15/20 Patient was seen and examined at bedside. Currently on 6L of NC saturating 92%, breathing improved with some exertional dyspnea. Receiving remdesivir Day 9 Hospital stay 10/16/20 Patient was seen and examined at bedside. According to the nurse he was put back on Bipap last night due to desaturation. Currently at 50% FIO2 saturating 98%. He reports that his breathing is about the same, not worsening. Denies any chest pain. has dyspnea on exertion. D10 hospital stay 10/17/20 Patient was seen and examined at bedside. Complaining of back pain otherwise denies any worsening SOB. He is eager to go home and does not want to go to rehab, prefers home PT/OT. He is on D3 of 4 of remdesivir. D11 hospital stay 10/18/20 Patient was seen and examined at bedside. He is frustrated and stated several times that he wants to go home however he understands that he is still requiring a lot of oxygen support and is willing to stay. He again stated that he does not want to go to rehab and said he would rather that go to rehab. He is currently at 6L of NC, still has exertional dyspnea but no SOB at rest. D12 hospital stay 10/19/20 Patient was seen and examined at bedside. Sitting on a chair on 6L Nc saturating 93%. Completed remdesivir dose today. Again expressed frustration about not being able to do things independently. He will probably go home with home O2 once we got him down at a more reasonable level and he is not requiring bipap. I am worried that due to his deconditioning he will not do well at home however the patient is very adamant to go home and not go to rehab. D13 hospital stay 10/20/20 Patient was seen and examined at bedside. He requires bipap only at night. Currently at 8l Non rebreather. He has changed his mind about rehab and is now willing to go to rehab. Consulted discharge planning. Completed remdesivir, ivermecti. He can ambulate from bed to chair with minimal assistance but gets very short of breath. D14 hospital stay 10/21/20 Patient was seen and examined at bedside. He stated he is ready for rehab and seems to be stronger today. he did not need the bipap last night according to his nurse. Currently at 6L nasal cannula sats 93%. Discharge planning looking for a rehab place for him. D15 hospital stay. Patient was seen and examined at bedside. Sitting on a chair at 5L nasal cannula saturating 95%. No new complains. Awaiting placement. He is otherwise ready to go, symptom onset has been 3 weeks so at this point he does not need to be in isolation. I have asked him several times in the past if he wants me to update anyone of his family regarding his status and he had repeatedly said no. Physical Exam Vital Signs: Temp Pulse Resp BP Pulse Ox 97.5 F 63 22 H 110/64 95 10/22/20 11:49 10/22/20 14:00 10/22/20 11:49 10/22/20 11:49 10/22/20 11:49 Intake & Output 10/21/20 10/22/20 10/23/20 06:59 06:59 06:59 Intake Total 1080 1130 Output Total 410 400 Balance 670 730 Weight 114.4 kg 118.5 kg General appearance: PRESENT: cooperative, mild distress Head exam: PRESENT: atraumatic, normocephalic Eye exam: PRESENT: EOMI, PERRLA Mouth exam: PRESENT: moist Neck exam: PRESENT: full ROM Respiratory exam: PRESENT: clear to auscultation priti, symmetrical, unlabored Cardiovascular exam: PRESENT: RRR, +S1, +S2 GI/Abdominal exam: PRESENT: normal bowel sounds, soft. ABSENT: rebound, tenderness Extremities exam: PRESENT: full ROM Musculoskeletal exam: PRESENT: full ROM Neurological exam: PRESENT: alert, awake, oriented to person, oriented to place, oriented to time, oriented to situation Psychiatric exam: PRESENT: normal mood Results Laboratory Results: WBC 7.7 10^3/uL (4.0-10.5) 10/22/20 06:16 RBC 4.29 10^6/uL (4.35-5.55) L 10/22/20 06:16 Hgb 13.3 g/dL (13.5-17.0) L 10/22/20 06:16 Hct 39.0 % (37.9-51.0) 10/22/20 06:16 MCV 91 fl (80-97) 10/22/20 06:16 MCH 31.0 pg (27.0-33.4) 10/22/20 06:16 MCHC 34.1 g/dL (32.0-36.0) 10/22/20 06:16 RDW 14.5 % (11.5-14.0) H 10/22/20 06:16 Plt Count 219 10^3/uL (150-450) 10/22/20 06:16 Lymph % (Auto) 10.5 % (13-45) L 10/22/20 06:16 Gem % (Auto) 11.5 % (3-13) 10/22/20 06:16 Eos % (Auto) 1.1 % (0-6) 10/22/20 06:16 Baso % (Auto) 0.5 % (0-2) 10/22/20 06:16 Absolute Neuts (auto) 5.9 10^3/uL (1.7-8.2) 10/22/20 06:16 Absolute Lymphs (auto) 0.8 10^3/uL (0.5-4.7) 10/22/20 06:16 Absolute Monos (auto) 0.9 10^3/uL (0.1-1.4) 10/22/20 06:16 Absolute Eos (auto) 0.1 10^3/uL (0.0-0.6) 10/22/20 06:16 Absolute Basos (auto) 0.0 10^3/uL (0.0-0.2) 10/22/20 06:16 Seg Neutrophils % 76.4 % (42-78) 10/22/20 06:16 PT 12.9 SEC (11.4-15.4) 10/12/20 16:53 INR 0.95 10/12/20 16:53 APTT 37.6 SEC (23.5-35.8) H 10/20/20 17:00 Fibrinogen 484 mg/dL (209-497) 10/20/20 17:00 D-Dimer 0.75 ug/mL (0.00-0.50) H 10/20/20 17:00 Carbonic Acid 1.48 mmol/L (1.05-1.35) H 10/14/20 08:25 HCO3/H2CO3 Ratio 23:1 10/14/20 08:25 ABG pH 7.47 (7.35-7.45) H 10/14/20 08:25 ABG pCO2 49.1 mmHg (35-45) H 10/14/20 08:25 ABG pO2 68.5 mmHg (80-100) L 10/14/20 08:25 ABG HCO3 35.0 mmol/L (20-24) H 10/14/20 08:25 ABG Total CO2 36.5 mmol/L (23-27) H 10/14/20 08:25 ABG O2 Saturation 94.5 % (94-98) 10/14/20 08:25 ABG Base Excess 9.7 mmol/L 10/14/20 08:25 FiO2 50% 10/14/20 08:25 Sodium 137.8 mmol/L (137-145) 10/22/20 06:16 Potassium 4.1 mmol/L (3.6-5.0) 10/22/20 06:16 Chloride 100 mmol/L (98-107) 10/22/20 06:16 Carbon Dioxide 34 mmol/L (22-30) H 10/22/20 06:16 Anion Gap 4 (5-19) L 10/22/20 06:16 BUN 28 mg/dL (7-20) H 10/22/20 06:16 Creatinine 0.99 mg/dL (0.52-1.25) 10/22/20 06:16 Est GFR ( Amer) > 60 (>60) 10/22/20 06:16 Est GFR (MDRD) Non-Af > 60 (>60) 10/22/20 06:16 Glucose 93 mg/dL (75-110) 10/22/20 06:16 POC Glucose 108 mg/dL (70-110) 10/22/20 11:46 Lactic Acid 1.1 mmol/L (0.7-2.1) 10/08/20 12:40 Calcium 8.3 mg/dL (8.4-10.2) L 10/22/20 06:16 Ferritin 828.00 ng/mL (17.9-464.0) H 10/22/20 06:16 Total Bilirubin 1.1 mg/dL (0.2-1.3) 10/22/20 06:16 Direct Bilirubin 0.3 mg/dL (0.0-0.4) 10/22/20 06:16 Neonat Total Bilirubin Not Reportable 10/22/20 06:16 Neonat Direct Bilirubin Not Reportable 10/22/20 06:16 Neonat Indirect Bili Not Reportable 10/22/20 06:16 AST 25 U/L (17-59) 10/22/20 06:16 ALT 29 U/L (<50) 10/22/20 06:16 Alkaline Phosphatase 64 U/L (38-126) 10/22/20 06:16 Creatine Kinase 121 U/L (55-170) 10/08/20 11:36 CK-MB (CK-2) 0.99 ng/mL (<4.55) 10/08/20 11:36 Troponin I 0.055 ng/mL 10/08/20 18:10 C-Reactive Protein 63.5 mg/L (<10.0) H 10/22/20 06:16 NT-Pro-B Natriuret Pep 4630 pg/mL (<450) H 10/08/20 11:36 Total Protein 5.5 g/dL (6.3-8.2) L 10/22/20 06:16 Albumin 2.7 g/dL (3.5-5.0) L 10/22/20 06:16 Urine Color YELLOW 10/08/20 14:54 Urine Appearance CLEAR 10/08/20 14:54 Urine pH 5.0 (5.0-9.0) 10/08/20 14:54 Ur Specific [place] 1.025 10/08/20 14:54 Urine Protein >=500 mg/dL (NEGATIVE) H 10/08/20 14:54 Urine Glucose (UA) NEGATIVE mg/dL (NEGATIVE) 10/08/20 14:54 Urine Ketones NEGATIVE mg/dL (NEGATIVE) 10/08/20 14:54 Urine Blood MODERATE (NEGATIVE) H 10/08/20 14:54 Urine Nitrite NEGATIVE (NEGATIVE) 10/08/20 14:54 Urine Bilirubin NEGATIVE (NEGATIVE) 10/08/20 14:54 Urine Urobilinogen 2.0 mg/dL (<2.0) H 10/08/20 14:54 Ur Leukocyte Esterase NEGATIVE (NEGATIVE) 10/08/20 14:54 Urine WBC (Auto) 1 /HPF 10/08/20 14:54 Urine RBC (Auto) 3 /HPF 10/08/20 14:54 Urine Bacteria (Auto) TRACE /HPF 10/08/20 14:54 Squamous Epi Cells Auto <1 /HPF 10/08/20 14:54 Urine Mucus (Auto) FEW /LPF 10/08/20 14:54 Urine Ascorbic Acid NEGATIVE (NEGATIVE) 10/08/20 14:54 Influenza A (RT-PCR) NEGATIVE (NEGATIVE) 10/08/20 17:42 Influenza B (RT-PCR) NEGATIVE (NEGATIVE) 10/08/20 17:42 RSV (RT-PCR) NEGATIVE (NEGATIVE) 10/08/20 17:42 SARS-CoV-2 Rap RNA(RT-PCR) POSITIVE (NEGATIVE) 10/08/20 17:42 10/08/20 10/08/20 11:36 18:10 CK-MB (CK-2) 0.99 Troponin I 0.064 0.055 NT-Pro-B Natriuret Pep 4630 H Impressions: Venous Doppler Study 10/08/20 00:00 IMPRESSION: No DVT in the left lower extremity. Chest X-Ray 10/08/20 12:16 IMPRESSION: In the appropriate clinical setting, findings are consistent with multi lobar pneumonia. Plan Plan of Treatment: - transfer to rehab - ff.up with PCP Time Spent: Greater than 30 Minutes Stroke Is this a Stroke Patient?: No Acute Heart Failure Is this a Heart Failure Patient?: No
[2020-10-22] MEDS: TAMSULOSIN HCL 0.4 MG CAP.SR.24H PO SCH (17:52)
[2020-10-22 19:05] LABS: PARTIAL THROMBOPLASTIN TIME 27.7 SEC (23.5-35.8)
[2020-10-22 19:08] LABS: D-DIMER 0.55 ug/mL (0.00-0.50)
[2020-10-22] MEDS: MELATONIN 5 MG TABLET PO SCH (21:18)
[2020-10-22] MEDS: ATORVASTATIN CALCIUM 40 MG TABLET PO SCH (21:18)
[2020-10-22] MEDS: GUAIFENESIN/CODEINE PHOS 100-10 MG/ 5 ML UDC PO PRN (21:18)
[2020-10-23] MEDS: PANTOPRAZOLE SODIUM 40 MG TABLET.DR PO SCH (05:17)
[2020-10-23 06:18] LABS: ABSOLUTE BASOPHILS # (AUTO) 0.1 10^3/uL (0.0-0.2); ABSOLUTE EOSINOPHILS # (AUTO) 0.1 10^3/uL (0.0-0.6); ABSOLUTE LYMPHOCYTES (AUTO) 0.8 10^3/uL (0.5-4.7); ABSOLUTE MONOCYTES (AUTO) 0.8 10^3/uL (0.1-1.4); ABSOLUTE NEUT (AUTO) 5.5 10^3/uL (1.7-8.2); BASOPHILS % (AUTO) 0.9 % (0-2); EOSINOPHILS % (AUTO) 0.9 % (0-6); HEMATOCRIT 40.2 % (37.9-51.0); HEMOGLOBIN 13.3 g/dL (13.5-17.0); LYMPHOCYTES % (AUTO) 10.6 % (13-45); MEAN CORPUSCULAR HEMOGLOBIN 30.3 pg (27.0-33.4); MEAN CORPUSCULAR VOLUME 92 fl (80-97); MONOCYTES % (AUTO) 11.3 % (3-13); PLATELET COUNT 216 10^3/uL (150-450); RED BLOOD COUNT 4.38 10^6/uL (4.35-5.55); RED CELL DISTRIBUTION WIDTH 14.7 % (11.5-14.0); SEGMENTED NEUTROPHILS % (AUTO) 76.3 % (42-78); TOTAL CELLS COUNTED % (AUTO) 100 %; WHITE BLOOD COUNT 7.2 10^3/uL (4.0-10.5)
[2020-10-23 06:45] LABS: ALBUMIN 2.7 g/dL (3.5-5.0); ALKALINE PHOSPHATASE 64 U/L (38-126); ANION GAP 5 (5-19); ASPARTATE AMINO TRANSFERASE 24 U/L (17-59); BILIRUBIN,DIRECT 0.3 mg/dL (0.0-0.4); BILIRUBIN,TOTAL 1.2 mg/dL (0.2-1.3); BLOOD UREA NITROGEN 27 mg/dL (7-20); C-REACTIVE PROTEIN 58.8 mg/L (<10.0); CALCIUM 8.5 mg/dL (8.4-10.2); CARBON DIOXIDE 32 mmol/L (22-30); CHLORIDE 99 mmol/L (98-107); GLUCOSE 86 mg/dL (75-110); POTASSIUM 4.2 mmol/L (3.6-5.0); TOTAL PROTEIN 5.7 g/dL (6.3-8.2)
[2020-10-23] MEDS: SODIUM CHLORIDE NASAL SPRAY 44 ML NASL SCH ×4 (07:55→22:13)
[2020-10-23] MEDS: INSULIN LISPRO 100 UNIT/ML 3 ML VIAL SUBCUT SCH ×4 (07:55→22:11)
[2020-10-23] MEDS: ZINC SULFATE 220 MG CAPSULE PO SCH (09:35)
[2020-10-23] MEDS: ASCORBIC ACID 500 MG TABLET PO SCH ×2 (09:35→17:12)
[2020-10-23] MEDS: ASPIRIN 81 MG TABLET, ENT COATED PO SCH (09:35)
[2020-10-23] MEDS: ENOXAPARIN SODIUM INJ 60 MG/0.6 ML DISP.SYRIN SUBCUT SCH (09:36)
[2020-10-23] MEDS: CHOLECALCIFEROL (D3) 1,000 UNIT (25 MCG) TABLET PO SCH (09:36)
[2020-10-23 10:55] LABS: APPEARANCE,URINE CLOUDY; BILIRUBIN,URINE NEGATIVE (NEGATIVE); COLOR,URINE YELLOW; GLUCOSE, URINE NEGATIVE (NEGATIVE); KETONES,URINE NEGATIVE (NEGATIVE); LEUKOCYTE ESTERASE,URINE NEGATIVE (NEGATIVE); NITRITE,URINE NEGATIVE (NEGATIVE); PROTEIN,URINE 30 mg/dL (NEGATIVE); URINE SPECIFIC GRAVITY 1.026; UROBILINOGEN,URINE NEGATIVE mg/dL (<2.0)
[2020-10-23] MEDS: TAMSULOSIN HCL 0.4 MG CAP.SR.24H PO SCH (17:12)
--- NOTE | 2020-10-23 17:50 | PDOC PROGRESS REPORT ---
Subjective Date:: 10/23/20 Subjective:: Patient is sitting in a chair with his suitcase packed. He is anxious for disch arge. No acute complaints or changes overnight. Reason For Visit: COVID-19, PNEUMONIA Physical Exam Vital Signs: Temp Pulse Resp BP Pulse Ox 97.6 F 64 18 119/58 L 98 10/23/20 11:27 10/23/20 14:00 10/23/20 11:27 10/23/20 11:27 10/23/20 11:27 Intake & Output 10/22/20 10/23/20 10/24/20 06:59 06:59 06:59 Intake Total 1130 477 600 Output Total 400 350 325 Balance 730 127 275 Weight 118.5 kg 117 kg General appearance: PRESENT: no acute distress, cooperative, well-developed, well-nourished Head exam: PRESENT: atraumatic, normocephalic Respiratory exam: PRESENT: clear to auscultation priti, symmetrical, unlabored. ABSENT: prolonged expiratory phas, rales, rhonchi, tachypnea, wheezes Cardiovascular exam: PRESENT: RRR, +S1, +S2. ABSENT: bradycardia, diastolic mu rmur, irregular rhythm, systolic murmur, tachycardia GI/Abdominal exam: PRESENT: normal bowel sounds, soft. ABSENT: distended, guarding, tenderness Rectal exam: PRESENT: deferred Gentrourinary exam: ABSENT: indwelling catheter Extremities exam: ABSENT: pedal edema Musculoskeletal exam: PRESENT: ambulatory, normal inspection. ABSENT: deformity, dislocation Neurological exam: PRESENT: alert, awake, oriented to person, oriented to place. ABSENT: altered Psychiatric exam: PRESENT: appropriate affect. ABSENT: agitated, anxious Focused psych exam: ABSENT: delusional, paranoid, restlessness Results Laboratory Results: 10/23/20 05:30 10/23/20 05:30 10/23/20 10/23/20 10/23/20 05:30 05:30 09:46 WBC 7.2 RBC 4.38 Hgb 13.3 L Hct 40.2 MCV 92 MCH 30.3 MCHC 33.0 RDW 14.7 H Plt Count 216 Seg Neutrophils % 76.3 Sodium 136.4 L Potassium 4.2 Chloride 99 Carbon Dioxide 32 H Anion Gap 5 BUN 27 H Creatinine 0.98 Est GFR ( Amer) > 60 Glucose 86 Calcium 8.5 Ferritin 868.00 H Total Bilirubin 1.2 AST 24 Alkaline Phosphatase 64 C-Reactive Protein 58.8 H Total Protein 5.7 L Albumin 2.7 L Urine Color YELLOW Urine Appearance CLOUDY Urine pH 5.0 Ur Specific [place] 1.026 Urine Protein 30 H Urine Glucose (UA) NEGATIVE Urine Ketones NEGATIVE Urine Blood NEGATIVE Urine Nitrite NEGATIVE Ur Leukocyte Esterase NEGATIVE Urine WBC (Auto) 1 Urine RBC (Auto) 1 10/08/20 10/08/20 10/08/20 11:36 11:36 18:10 Creatine Kinase 121 CK-MB (CK-2) 0.99 Troponin I 0.064 0.055 NT-Pro-B Natriuret Pep 4630 H Impressions: Venous Doppler Study 10/08/20 00:00 IMPRESSION: No DVT in the left lower extremity. Chest X-Ray 10/08/20 12:16 IMPRESSION: In the appropriate clinical setting, findings are consistent with multi lobar pneumonia. Assessment and Plan - Plan Summary Summary: (1) Acute respiratory failure with hypoxia and hypercapnia Is this a current diagnosis for this admission?: Yes Plan: - 2/2 COVID pneumonia - currently on 6L nasal canula saturating 92% still has exertional dyspnea -completed remdesivir, ivermectin, steroids and abx - requires bipap at night but otherwise on 5L of NC -Up to 6 L nasal cannula today. Still stable for discharge. (2) Pneumonia due to COVID-19 virus Is this a current diagnosis for this admission?: Yes Plan: -Covid-19 test positive, BCx x2 with NGTD - dexamethasone 6 mg IV daily x10 days - completed - Ivermectin 18 mg PO on days 1 and 3 - completed - completed remdesivir - D dimer decreased to 0.74 [id number] mg daily lovenox - continue Zinc, B-complex, Vit C, Vit D -Doing very well. Continue current regimen (3) JEFFRY (acute kidney injury) Is this a current diagnosis for this admission?: Yes Plan: - Crea 1.4>0.9 resolved (4) NSTEMI (non-ST elevated myocardial infarction) Is this a current diagnosis for this admission?: Yes Plan: - Trop peaked at 0.[address] elevation - likely 2/2 demand ischemia - continue aspirin and statin (5) Acute metabolic encephalopathy Is this a current diagnosis for this admission?: Yes Plan: - 2/2 delirium from acute illness - resolved (6) Physical deconditioning Is this a current diagnosis for this admission?: Yes Plan: - after days of refusing rehab, the patient has finally agreed to go to rehab - discharge planning consulted -Slated for short-term rehab. Anticipated discharge tomorrow. (7) Pressure ulcer Qualifiers: Pressure injury location: sacral region Pressure injury stage: stage 1 Qualified Code(s): L89.151 - Pressure ulcer of sacral region, stage 1 Is this a current diagnosis for this admission?: Yes Plan: - frequent turns - wound care consult - Time Time Spent with patient: 15-24 minutes Medications reviewed and adjusted accordingly: Yes Anticipated Discharge Disposition: Retirement Facility Anticipated Discharge Timeframe: within 24 hours
[2020-10-23] MEDS: GUAIFENESIN/CODEINE PHOS 100-10 MG/ 5 ML UDC PO PRN (22:12)
[2020-10-23] MEDS: MELATONIN 5 MG TABLET PO SCH (22:12)
[2020-10-23] MEDS: ATORVASTATIN CALCIUM 40 MG TABLET PO SCH (22:12)
[2020-10-24] MEDS: PANTOPRAZOLE SODIUM 40 MG TABLET.DR PO SCH (05:16)
[2020-10-24 05:58] LABS: ABSOLUTE EOSINOPHILS # (AUTO) 0.1 10^3/uL (0.0-0.6); ABSOLUTE LYMPHOCYTES (AUTO) 0.9 10^3/uL (0.5-4.7); ABSOLUTE MONOCYTES (AUTO) 0.8 10^3/uL (0.1-1.4); ABSOLUTE NEUT (AUTO) 4.5 10^3/uL (1.7-8.2); BASOPHILS % (AUTO) 0.8 % (0-2); EOSINOPHILS % (AUTO) 1.3 % (0-6); HEMATOCRIT 37.6 % (37.9-51.0); HEMOGLOBIN 12.5 g/dL (13.5-17.0); LYMPHOCYTES % (AUTO) 13.7 % (13-45); MEAN CORPUSCULAR HEMOGLOBIN 30.4 pg (27.0-33.4); MEAN CORPUSCULAR HGB CONC 33.3 g/dL (32.0-36.0); MEAN CORPUSCULAR VOLUME 91 fl (80-97); MONOCYTES % (AUTO) 13.3 % (3-13); PLATELET COUNT 190 10^3/uL (150-450); RED BLOOD COUNT 4.13 10^6/uL (4.35-5.55); RED CELL DISTRIBUTION WIDTH 14.5 % (11.5-14.0); SEGMENTED NEUTROPHILS % (AUTO) 70.9 % (42-78); TOTAL CELLS COUNTED % (AUTO) 100 %; WHITE BLOOD COUNT 6.3 10^3/uL (4.0-10.5)
[2020-10-24 06:15] LABS: ALBUMIN 2.6 g/dL (3.5-5.0); ALKALINE PHOSPHATASE 64 U/L (38-126); ASPARTATE AMINO TRANSFERASE 23 U/L (17-59); BILIRUBIN,DIRECT 0.2 mg/dL (0.0-0.4); BLOOD UREA NITROGEN 26 mg/dL (7-20); C-REACTIVE PROTEIN 67.4 mg/L (<10.0); CALCIUM 8.4 mg/dL (8.4-10.2); GLUCOSE 89 mg/dL (75-110); POTASSIUM 4.5 mmol/L (3.6-5.0); TOTAL PROTEIN 5.4 g/dL (6.3-8.2)
[2020-10-24 06:19] LABS: CARBON DIOXIDE 33 mmol/L (22-30); CHLORIDE 100 mmol/L (98-107)
[2020-10-24 07:51] LABS: ANION GAP 3 (5-19)
[2020-10-24] MEDS: ENOXAPARIN SODIUM INJ 60 MG/0.6 ML DISP.SYRIN SUBCUT SCH (09:27)
[2020-10-24] MEDS: ASCORBIC ACID 500 MG TABLET PO SCH (09:27)
[2020-10-24] MEDS: INSULIN LISPRO 100 UNIT/ML 3 ML VIAL SUBCUT SCH ×2 (09:28→12:04)
[2020-10-24] MEDS: ASPIRIN 81 MG TABLET, ENT COATED PO SCH (09:28)
[2020-10-24] MEDS: CHOLECALCIFEROL (D3) 1,000 UNIT (25 MCG) TABLET PO SCH (09:28)
[2020-10-24] MEDS: ZINC SULFATE 220 MG CAPSULE PO SCH (09:28)
[2020-10-24] MEDS: SODIUM CHLORIDE NASAL SPRAY 44 ML NASL SCH ×2 (09:30→12:26)
[2020-10-24 12:03] VITALS: BP 121/61
== END 2020-10-24 13:10 | DRG 177 ==
LOC: ER 11:55 → EH 15:28 → 3W 19:23
PROVIDERS: ADMIT Hospitalist; ATTEND Internal Medicine
PROC: 5A09557 Assistance with Respiratory Ventilation, Greater than 96 Consecutive Hours, Continuous Positive Airway Pressure (ICD-10-PCS; 2020-10-08)
PROC: XW033E5 Introduction of Remdesivir Anti-infective into Peripheral Vein, Percutaneous Approach, New Technology Group 5 (ICD-10-PCS; principal; 2020-10-14)
PROC: B24BZZZ Ultrasonography of Heart with Aorta (ICD-10-PCS; 2020-10-16)
DX: U07.1 COVID-19 (principal); J12.82 Pneumonia due to coronavirus disease 2019; J96.02 Acute respiratory failure with hypercapnia; J96.01 Acute respiratory failure with hypoxia; G93.41 Metabolic encephalopathy; I21.A1 Myocardial infarction type 2; N17.9 Acute kidney failure, unspecified; E87.1 Hypo-osmolality and hyponatremia; D69.6 Thrombocytopenia, unspecified; E11.9 Type 2 diabetes mellitus without complications; I11.0 Hypertensive heart disease with heart failure; I50.9 Heart failure, unspecified; E78.5 Hyperlipidemia, unspecified; G47.30 Sleep apnea, unspecified; D70.9 Neutropenia, unspecified; Z60.2 Problems related to living alone; L89.151 Pressure ulcer of sacral region, stage 1; N50.89 Other specified disorders of the male genital organs; E86.0 Dehydration; Z79.82 Long term (current) use of aspirin
CPT/HCPCS: 36415; 36600; 71045; 80053; 81001; 82550; 82553; 82728; 82803; 82962; 83605; 83880; 84484; 85025; 85379; 85384; 85610; 85730; 86140; 87040; 93005; 93010; 93306; 93971; 94660; 96374; 99285; 0241U; C9803; J0456; J0696; J1100; J1650; J1815; J1940; J2270; J3490; J7030; J7050; J7060